=== PATIENT | female | born 1940 | race Caucasian/White ===

== ENCOUNTER 2018-08-01 09:44 | Emergency (ER) | payer MEDICARE, BC ==
--- NOTE | 2018-08-01 10:36 | EDM.PDOC ---
ED HPI GENERAL MEDICAL PROBLEM - General Chief Complaint: Lower Extremity Injury/Pain Stated Complaint: IN BY AMBULANCE FALL Time Seen by Provider: 08/01/18 10:00 Source of Information: Reports: Patient, EMS History Limitations: Reports: No Limitations - History of Present Illness INITIAL COMMENTS - FREE TEXT/NARRATIVE: ED with c/o right hip pain after 2nd fall this am. States tripped on rug earlier in am while ambulance coming for neighbor, stubbed toe and cut to right hand, assisted up by family after first fall then able to ambulate, 2nd fall again stating tripped on rug going again to window to see what was going on. Pain right hip after fall and unable to get up. Did not hit head. No back or neck pain. Hx parkinsons disease. Right Hip Pain Score (Numeric/FACES): 5 - Related Data Allergies Allergy/AdvReac Type Severity Reaction Status Date / Time alendronate sodium Allergy Cannot Verified 08/01/18 11:12 [From Fosamax] Remember cerivastatin [From Baycol] Allergy Cannot Verified 08/01/18 11:12 Remember Ytpiutv-Jwe-Xra Reductase Allergy Cannot Verified 08/01/18 11:12 Inhibitor Remember Past Medical History Cardiovascular History: Reports: Afib, Hypertension Neurological History: Reports: Parkinson's - Past Surgical History Musculoskeletal Surgical History: Reports: Knee Replacement Review of Systems - Review of Systems Review Of Systems: ROS reveals no pertinent complaints other than HPI. ED EXAM, GENERAL - Physical Exam Exam: See Below Exam Limited By: No Limitations General Appearance: Alert, Moderate Distress (with movement right hip) Eye Exam: Bilateral Eye: Normal Inspection Ears: Normal External Exam Nose: Normal Inspection Throat/Mouth: Normal Inspection Head: Atraumatic, Normocephalic Neck: Normal Inspection Respiratory/Chest: No Respiratory Distress, Lungs Clear, Normal Breath Sounds Cardiovascular: Normal Peripheral Pulses, Regular Rate, Rhythm GI/Abdominal: Normal Bowel Sounds Back Exam: Normal Inspection Extremities: No Pedal Edema, Leg Pain, Limited Range of Motion, Other (pedal pulses present bilaterally equal ) Neurological: Alert, Oriented, Normal Cognition, Memory Loss Remote Events ( admits is forgetful at times. ) Psychiatric: Normal Affect Skin Exam: Warm, Dry, Intact, Normal Color Course - Vital Signs Last Recorded V/S: Last Vital Signs Temp 97.5 F 08/01/18 11:01 Pulse 93 08/01/18 11:01 Resp 15 08/01/18 11:01 BP 173/97 H 08/01/18 11:01 Pulse Ox 95 08/01/18 11:01 - Orders/Labs/Meds Orders: Active Orders 24 hr Category Date Time Status UA W/MICROSCOPIC [URIN] Stat Lab 08/01/18 11:04 Ordered Labs: Laboratory Tests 08/01/18 08/01/18 08/01/18 Range/Units 10:08 10:08 11:04 WBC 9.5 (5.0-10.0) 10^3/uL RBC 4.66 (4.2-5.4) 10^6/uL Hgb 12.8 (12.0-16.0) g/dL Hct 41.6 (37.0-47.0) % MCV 89.3 (80-100) fL MCH 27.5 (27.0-34.0) pg MCHC 30.8 L (33.0-35.0) g/dL Plt Count 176 (150-450) 10^3/uL Neut % (Auto) 84.8 H (42.2-75.2) % Lymph % (Auto) 7.9 L (20.5-50.1) % [place] % (Auto) 6.7 (2-8) % Eos % (Auto) 0.5 L (1.0-3.0) % Baso % (Auto) 0.1 (0.0-1.0) % Sodium 143 (135-145) mmol/L Potassium 3.9 (3.6-5.0) mmol/L Chloride 107 (101-111) mmol/L Carbon Dioxide 25.0 (21.0-31.0) mmol/L Anion Gap 14.9 BUN 26 H (7-18) mg/dL Creatinine 1.3 (0.6-1.3) mg/dL Est Cr Clr Drug Dosing TNP Estimated GFR (MDRD) 40 BUN/Creatinine Ratio 20.00 Glucose 157 H (74-105) mg/dL Calcium 8.9 (8.4-10.2) mg/dl Total Bilirubin 1.0 (0.2-1.0) mg/dL AST 25 (10-42) IU/L ALT < 5 L (10-60) IU/L Alkaline Phosphatase 153 H (42-121) IU/L Total Protein 6.9 (6.7-8.2) g/dl Albumin 3.6 (3.2-5.5) g/dl Globulin 3.3 Albumin/Globulin Ratio 1.09 Urine Color Yellow (YELLOW) Urine Appearance Cloudy (CLEAR) Urine pH 5.0 (5.0-9.0) Ur Specific [place] 1.025 (1.005-1.030) Urine Protein >=300 H (NEGATIVE) Urine Glucose (UA) Negative (NEGATIVE) Urine Ketones Negative (NEGATIVE) Urine Occult Blood Small H (NEGATIVE) Urine Nitrite Positive H (NEGATIVE) Urine Bilirubin Negative (NEGATIVE) Urine Urobilinogen 0.2 (0.2-1.0) mg/dL Ur Leukocyte Esterase Trace H (NEGATIVE) Urine RBC 0-5 /HPF Urine WBC 10-20 H (0-5/HPF) /HPF Ur Epithelial Cells Not seen /HPF Urine Bacteria Many H (0-FEW/HPF) /HPF Urine Mucus Not seen /LPF Meds: Medications Discontinued Medications Generic Name Dose Route Start Last Admin Trade Name Hirenq PRN Reason Stop Dose Admin Hydromorphone HCl 1 mg 08/01/18 11:01 08/01/18 11:09 Dilaudid IVPUSH 08/01/18 11:02 1 mg ONETIME ONE Administration - Radiology Interpretation Free Text/Narrative:: CT pelvis : right femoral neck fracture - Re-Assessments/Exams Free Text/Narrative Re-Assessment/Exam: 08/01/18 11:26 Family present. Aware hip fx diagnosis. Patient reporting only took BP medication, synthroid, and Levo dopa. DID not take pradaxa this am. Tx [facility] via [facility]. Dr. Gamino accepting of patient. 08/01/18 11:27 Departure - Departure Time of Disposition: 11:34 Disposition: DC/Tfer to Acute Hospital 02 Condition: Good Clinical Impression: Fracture of neck of femur, hip, Parkinsons disease, Chronic anticoagulation, History of bilateral knee replacement CAD (coronary artery disease) Qualifiers: Coronary Disease-Associated Artery/Lesion type: unspecified vessel or lesion type Habematolel vs. transplanted heart: [place] heart Associated angina: without angina Qualified Code(s): I25.10 - Atherosclerotic heart disease of [place] coronary artery without angina pectoris Hypothyroidism Qualifiers: Hypothyroidism type: unspecified Qualified Code(s): E03.9 - Hypothyroidism, unspecified Osteoporosis Qualifiers: Osteoporosis type: unspecified Presence of current pathological fracture: unspecified Qualified Code(s): M81.0 - Age-related osteoporosis without current pathological fracture Peripheral neuropathy Qualifiers: Peripheral neuropathy type: polyneuropathy, unspecified Qualified Code(s): G62.9 - Polyneuropathy, unspecified - Discharge Information *PRESCRIPTION DRUG MONITORING PROGRAM REVIEWED*: Not Applicable Referrals: Misbah Barreto MD [Primary Care Provider] - Forms: ED Department Discharge - My Orders Last 24 Hours: My Active Orders 08/01/18 11:04 UA W/MICROSCOPIC [URIN] Stat - Assessment/Plan Last 24 Hours: My Active Orders 08/01/18 11:04 UA W/MICROSCOPIC [URIN] Stat
[2018-08-01 10:43] LABS: ANION GAP 14.9; CHLORIDE,CL 107 mmol/L (101-111); SODIUM,NA 143 mmol/L (135-145)
--- NOTE | 2018-08-01 10:52 | CT ---
Clinical history: 78-year-old female with Parkinson's disease and now hip pain (tripped on rug). Interpretation: Volume acquisition of data emergency unenhanced CT scan of the pelvis and both hips o btained while the patient was lying supine on the Siemens multi slice CT scanner [place], [place]. All data archived in the PACS system for storage, reformatting axial/sag ittal/coronal planes and study. Interpretation: Abnormal. 1. *Acute right femoral neck fracture with proximal retraction of the shaft (no dislocation of the fe moral head). 2. Homogeneous age and gender appropriate bone mineral density. 3. Symmetric spacing normal-appearing SI and hip joints. 4. No sign of pelvic or contralateral left hip fracture. 5. Mild arthritic changes lower lumbar spine.
[2018-08-01] MEDS ORDERED: HYDROmorphone 1 MG/ML Syringe IVPUSH ONE (11:01)
== END 2018-08-01 11:45 ==
LOC: DL.ED 09:44
DX: S72.001A Fracture of unspecified part of neck of right femur, initial encounter for closed fracture (principal); I10 Essential (primary) hypertension; I48.91 Unspecified atrial fibrillation; G20 Parkinson's disease; I25.10 Atherosclerotic heart disease of native coronary artery without angina pectoris; M81.0 Age-related osteoporosis without current pathological fracture; G62.9 Polyneuropathy, unspecified; W18.09XA Striking against other object with subsequent fall, initial encounter; Z88.8 Allergy status to other drugs, medicaments and biological substances; Z96.653 Presence of artificial knee joint, bilateral
CPT/HCPCS: 36415; 51702; 72192; 80053; 81001; 85025; 96374; 99284; 99285; J1170

== ENCOUNTER 2018-08-07 11:27 | Inpatient (IN) | payer MEDICARE, BC ==
--- NOTE | 2018-08-07 15:51 | PCM.HP ---
H&P History of Present Illness - General Date of Service: 08/07/18 Admit Problem/Dx: Admission Diagnosis/Problem Admission Diagnosis/Problem Rehabilitation therapy Source of Information: Patient, Old Records History Limitations: Reports: No Limitations - History of Present Illness Initial Comments - Free Text/Narative: 78 yo F with PMH of Parkinson's disease, atrial fibrillation on Pradaxa, CKD with solitary kidney, who sustained a mechanical fall a week ago and had a right hip fracture is s/p right hip arthroplasty. She was admitted to swing bed today after hospital stay for rehabilitation During hospitalization, she had anemia, likely 2/2 acute blood loss from hip # and surgery and hemoglobin improved prior to discharge Pradaxa was held during episode of acute anemia. I discussed with the orthopedic surgeon this afternoon and from the surgical standpoint, anticoagulation can be restarted. She also had a troponin leak, was seen by cardiology and no acute intervention was required. I saw and examined the patient at the bedside. She complains of pain in the right hip due to the vehicular ride to the swingbed facility. Pain is mild to moderate in the right hip region. Similar to previous pain associated with PT of the hip joint. Usually responds to tramadol. She has no chest pain, no SOB, no abdominal pain, no urinary symptoms RIGHT HIP INCISION Pain Score (Numeric/FACES): 3 - Related Data Allergies/Adverse Reactions: Allergies Allergy/AdvReac Type Severity Reaction Status Date / Time alendronate sodium Allergy Other Verified 08/07/18 14:36 [From Fosamax] cerivastatin [From Baycol] Allergy Other Verified 08/07/18 14:36 Ekyivsx-Hyh-Ibe Reductase Allergy Muscle Verified 08/07/18 14:36 Inhibitor Aches oxycodone AdvReac Nausea and Verified 08/07/18 14:35 Vomiting Home Medications: Home Meds Acetaminophen/Diphenhydramine [Tylenol Pm Ex-Strength Caplet] 1 tab PO DAILY PRN 08/07/18 [History] Calcitriol 0.25 cap PO DAILY 08/07/18 [History] Carbidopa/Levodopa [Carbidopa-Levo 25-100 MG ODT] 1 tab PO TID 08/07/18 [History ] Cholecalciferol (Vitamin D3) [Vitamin D3] 1,000 units PO DAILY 08/07/18 [History ] Dabigatran [Pradaxa] 150 mg PO DAILY 08/07/18 [History] Enoxaparin Sodium [Lovenox] 40 mg SQ DAILY 08/07/18 [History] Levothyroxine 175 mcg PO ACBREAKFAST 08/07/18 [History] Losartan [Cozaar] 50 mg PO BID 08/07/18 [History] Metoprolol Succinate [Toprol XL 100mg] 100 - 150 mg PO ASDIRECTED 08/07/18 [ History] Sodium Bicarbonate 325 mg PO BID 08/07/18 [History] Triamterene/Hydrochlorothiazid [Triamterene-HCTZ 37.5-25 MG] 1 tab PO DAILY 11/12 [History] Vit C/E/Zn/Coppr/Lutein/Zeaxan [Preservision Areds 2 Softgel] 1 cap PO BID 08/07 [History] Past Medical History HEENT History: Reports: Impaired Vision Other HEENT History: CORRECTIVE LENS Cardiovascular History: Reports: Afib, Hypertension [employer] WORK[employer] History: Reports: , Spontaneous Musculoskeletal History: Reports: Fracture, Gout, Osteoarthritis Neurological History: Reports: Neuropathy, Peripheral, Parkinson's Endocrine/Metabolic History: Reports: Hypothyroidism, Obesity/BMI 30+ Hematologic History: Reports: B12 Deficiency, Blood Transfusion(s) Immunologic History: Reports: None Oncologic (Cancer) History: Reports: None Dermatologic History: Reports: None - Infectious Disease History Infectious Disease History: Reports: Chicken Pox, Measles, Mumps, Shingles - Past Surgical History HEENT Surgical History: Reports: Oral Surgery, Other (See Below) Other HEENT Surgeries/Procedures: UPPER PARTIAL Cardiovascular Surgical History: Reports: Coronary Artery Stent GI Surgical History: Reports: Cholecystectomy, Colonoscopy Female Surgical History: Reports: Breast Biopsy, D&C, Hysterectomy Endocrine Surgical History: Reports: None Neurological Surgical History: Reports: None Musculoskeletal Surgical History: Reports: Hip Replacement, Knee Replacement Dermatological Surgical History: Reports: None Social & Family History - Family History Family Medical History: Noncontributory - Tobacco Use Smoking Status *Q: Never Smoker Second Hand Smoke Exposure: Yes - Caffeine Use Caffeine Use: Reports: Coffee Other Caffeine Use: AVERAGE OF 2-3 CUPS DAILY - Recreational Drug Use Recreational Drug Use: No H&P Review of Systems - Review of Systems: Review Of Systems: ROS reveals no pertinent complaints other than HPI. General: Reports: No Symptoms HEENT: Reports: No Symptoms Pulmonary: Reports: No Symptoms Cardiovascular: Reports: No Symptoms Gastrointestinal: Reports: No Symptoms Genitourinary: Reports: No Symptoms Musculoskeletal: Reports: Other (as described in HPI) Exam - Exam Exam: See Below - Vital Signs Vital Signs: Last Vital Signs Temp 36.7 C 08/07/18 14:17 Pulse 93 08/07/18 14:17 Resp 16 08/07/18 14:17 BP 148/85 H 08/07/18 14:17 Pulse Ox 97 08/07/18 14:17 Weight: 103.328 kg - Exam General: Alert, Oriented HEENT: Conjunctiva Clear Neck: Supple, Trachea Midline Lungs: Clear to Auscultation, Normal Respiratory Effort Cardiovascular: Regular Rate, Regular Rhythm GI/Abdominal Exam: Normal Bowel Sounds Problem List Initiated/Reviewed/Updated: Yes Orders Last 24hrs: Active Orders 24 hr Category Date Time Status Patient Status [ADT] Routine ADT 08/07/18 15:27 Ordered Ambulate [RC] ASDIRECTED Care 08/07/18 15:27 Ordered Bedrest Bathroom Privileges [RC] ASDIRECTED Care 08/07/18 15:27 Ordered Bedrest Bedside Commode [RC] ASDIRECTED Care 08/07/18 15:27 Ordered May Shower [RC] ASDIRECTED Care 08/07/18 15:27 Ordered Oxygen Therapy [RC] PRN Care 08/07/18 15:27 Ordered Up With Assistance [RC] ASDIRECTED Care 08/07/18 15:27 Ordered Up ad Zoë [RC] ASDIRECTED Care 08/07/18 15:27 Ordered Up to Chair [RC] ASDIRECTED Care 08/07/18 15:27 Ordered Vital Signs [RC] PER UNIT ROUTINE Care 08/07/18 15:27 Ordered OT Evaluation and Treatment [CONS] Routine Cons 08/07/18 15:27 Ordered PT Evaluation and Treatment [CONS] Routine Cons 08/07/18 15:27 Ordered Acetaminophen/Diphenhydramine [Tylenol Pm Ex-Strength Med 08/07/18 15:39 Ordered Caplet] 1 tab PO DAILY PRN Calcitriol [Rocaltrol] Med 08/08/18 09:00 Ordered 0.25 cap PO DAILY Carbidopa/Levodopa [Carbidopa-Levo 25-100 MG ODT] Med 08/07/18 21:00 Ordered 1 tab PO TID Cholecalciferol (Vitamin D3) [Vitamin D3] Med 08/08/18 09:00 Ordered 1,000 units PO DAILY Dabigatran Med 08/08/18 09:00 Ordered 150 mg PO DAILY HCTZ/Triamterene [Maxzide 25-37.5 MG] Med 08/08/18 09:00 Ordered 1 tab PO DAILY Levothyroxine [Levothyroxine] Med 08/08/18 06:00 Ordered 175 mcg PO ACBREAKFAST Losartan [Cozaar] Med 08/07/18 21:00 Ordered 50 mg PO BID Metoprolol Succinate [Toprol XL 100mg] Med 08/07/18 15:45 Ordered 100 mg PO ASDIRECTED Sodium Bicarbonate Med 08/07/18 21:00 Ordered 325 mg PO BID Vit C/E/Zn/Coppr/Lutein/Zeaxan [Preservision Areds 2 Med 08/07/18 21:00 Ordered Softgel] 1 cap PO BID Resuscitation Status Routine Resus Stat 08/07/18 15:27 Ordered Assessment/Plan Comment:: Hip Fracture s/p R Hip Arthroplasty -PT.OT for rehab -pain mgt with tylenol and tramadol Parkinson's disease -continue carbidopa/levodopa Atrial fibrillation Rate control: continue metoprolol Anticoaglation: restart pradaxa Check CBC Hypothyroidism continue levothyroxine Hypertension continue home BP meds (HCTZ, losartan) Code Status: OSVALDO
[2018-08-07] MEDS: Lutein/Minerals/Vit A,C & E Tab PO SCH (21:22)
[2018-08-07] MEDS: Dabigatran 75 MG Cap PO SCH (21:22)
[2018-08-07] MEDS: Sodium Bicarbonate 650 MG Tab PO SCH (21:23)
[2018-08-07] MEDS: Carbidopa/Levodopa 25-100 MG Tab PO SCH (21:24)
[2018-08-07] MEDS: Losartan 50 MG Tab PO SCH (21:24)
[2018-08-07] MEDS: Metoprolol Succinate 50 MG Tab.ER PO SCH (21:27)
[2018-08-07] MEDS: traMADol 50 MG Tab PO PRN (23:36)
[2018-08-07] MEDS: diphenhydrAMINE 25 MG Tab PO PRN (23:38)
[2018-08-08] MEDS: Levothyroxine 75 MCG Tab PO SCH (05:44)
[2018-08-08] MEDS: Levothyroxine 100 MCG Tab PO SCH (05:44)
[2018-08-08] MEDS ORDERED: Non-Formulary Medication 1 Each (Dabigatran 150 MG) PO SCH (09:00)
[2018-08-08] MEDS: Losartan 50 MG Tab PO SCH ×2 (10:35→20:41)
[2018-08-08] MEDS: Lutein/Minerals/Vit A,C & E Tab PO SCH ×2 (10:35→20:43)
[2018-08-08] MEDS: Hydrochlorothiazide/Triamterene 25-37.5 Tab PO SCH (10:36)
[2018-08-08] MEDS: Dabigatran 75 MG Cap PO SCH ×2 (10:36→20:41)
[2018-08-08] MEDS: Calcitriol 0.25 MCG Cap PO SCH (10:37)
[2018-08-08] MEDS: Carbidopa/Levodopa 25-100 MG Tab PO SCH ×3 (10:37→20:44)
[2018-08-08] MEDS: Sodium Bicarbonate 650 MG Tab PO SCH ×2 (10:37→20:42)
[2018-08-08] MEDS: Cholecalciferol (Vitamin D3) 400 Unit Tab PO SCH (10:38)
[2018-08-08] MEDS: Metoprolol Succinate 50 MG Tab.ER PO SCH ×2 (10:39→20:45)
[2018-08-08] MEDS: diphenhydrAMINE 25 MG Tab PO PRN (22:36)
[2018-08-08] MEDS: Acetaminophen 500 MG Tab PO PRN (22:36)
[2018-08-09] MEDS: traMADol 50 MG Tab PO PRN ×2 (02:44→21:51)
[2018-08-09] MEDS: Levothyroxine 100 MCG Tab PO SCH (05:46)
[2018-08-09] MEDS: Levothyroxine 75 MCG Tab PO SCH (05:46)
[2018-08-09] MEDS: Cholecalciferol (Vitamin D3) 400 Unit Tab PO SCH (09:18)
[2018-08-09] MEDS: Metoprolol Succinate 50 MG Tab.ER PO SCH ×2 (09:19→21:56)
[2018-08-09] MEDS: Dabigatran 75 MG Cap PO SCH ×2 (09:20→21:48)
[2018-08-09] MEDS: Carbidopa/Levodopa 25-100 MG Tab PO SCH ×3 (09:21→21:49)
[2018-08-09] MEDS: Calcitriol 0.25 MCG Cap PO SCH (09:21)
[2018-08-09] MEDS: Sodium Bicarbonate 650 MG Tab PO SCH ×2 (09:21→21:50)
[2018-08-09] MEDS: Lutein/Minerals/Vit A,C & E Tab PO SCH ×2 (09:29→21:48)
[2018-08-09] MEDS: Losartan 50 MG Tab PO SCH ×2 (09:29→21:47)
[2018-08-09] MEDS: Hydrochlorothiazide/Triamterene 25-37.5 Tab PO SCH (09:29)
[2018-08-10] MEDS: Levothyroxine 75 MCG Tab PO SCH (05:42)
[2018-08-10] MEDS: Levothyroxine 100 MCG Tab PO SCH (05:42)
[2018-08-10] MEDS: Hydrochlorothiazide/Triamterene 25-37.5 Tab PO SCH (09:00)
[2018-08-10] MEDS: Lutein/Minerals/Vit A,C & E Tab PO SCH ×2 (09:00→21:29)
[2018-08-10] MEDS: Sodium Bicarbonate 650 MG Tab PO SCH ×2 (09:00→21:29)
[2018-08-10] MEDS: Calcitriol 0.25 MCG Cap PO SCH (09:00)
[2018-08-10] MEDS: Losartan 50 MG Tab PO SCH ×2 (09:01→21:28)
[2018-08-10] MEDS: Carbidopa/Levodopa 25-100 MG Tab PO SCH ×3 (09:02→21:29)
[2018-08-10] MEDS: Dabigatran 75 MG Cap PO SCH ×2 (09:02→21:28)
[2018-08-10] MEDS: Metoprolol Succinate 50 MG Tab.ER PO SCH ×2 (09:04→21:28)
[2018-08-10] MEDS: Cholecalciferol (Vitamin D3) 400 Unit Tab PO SCH (09:05)
[2018-08-10] MEDS: Acetaminophen 325 MG Tab PO PRN (12:55)
[2018-08-10] MEDS ORDERED: Calcium Carbonate 500 MG Tab.Chew PO PRN (16:08)
[2018-08-10] MEDS ORDERED: predniSONE 5 MG Tab PO ONE (16:16)
[2018-08-10 17:35] LABS: ANION GAP 13.4
[2018-08-10] MEDS: traMADol 50 MG Tab PO PRN (21:57)
[2018-08-11] MEDS: Levothyroxine 75 MCG Tab PO SCH (06:07)
[2018-08-11] MEDS: Levothyroxine 100 MCG Tab PO SCH (06:07)
[2018-08-11] MEDS: Hydrochlorothiazide/Triamterene 25-37.5 Tab PO SCH (09:24)
[2018-08-11] MEDS: Cholecalciferol (Vitamin D3) 400 Unit Tab PO SCH (09:24)
[2018-08-11] MEDS: Calcitriol 0.25 MCG Cap PO SCH (09:25)
[2018-08-11] MEDS: Losartan 50 MG Tab PO SCH ×2 (09:25→21:10)
[2018-08-11] MEDS: Metoprolol Succinate 50 MG Tab.ER PO SCH ×2 (09:26→21:09)
[2018-08-11] MEDS: Lutein/Minerals/Vit A,C & E Tab PO SCH ×2 (09:29→21:07)
[2018-08-11] MEDS: Sodium Bicarbonate 650 MG Tab PO SCH ×2 (09:29→21:10)
[2018-08-11] MEDS: Carbidopa/Levodopa 25-100 MG Tab PO SCH ×3 (09:29→21:09)
[2018-08-11] MEDS: Dabigatran 75 MG Cap PO SCH ×2 (09:30→21:50)
--- NOTE | 2018-08-11 13:22 | PCM.PN ---
- General Info Date of Service: 08/11/18 Admission Dx/Problem (Free Text): Admission Diagnosis/Problem Admission Diagnosis/Problem Rehabilitation therapy Subjective Update: 78 yo F with PMH of Parkinson's disease, atrial fibrillation on Pradaxa, CKD with solitary kidney, who sustained a mechanical fall and had a right hip fracture is s/p right hip arthroplasty. She was admitted to swing bed after hospital stay for rehabilitation During hospitalization, she had anemia, likely 2/2 acute blood loss from hip # and surgery and hemoglobin improved prior to discharge Pradaxa was held during episode of acute anemia. This ahs been resumed. She also had a troponin leak, was seen by cardiology and no acute intervention was required. Patient was seen and examined today. She developed acute pain and redness in the left big toe. She has h/o of gouty arthritis. Uric acid done was elevated at 7.7. patient was started on systemic prednisone given h/o CKD. Today she report improvement in the left big toe. She denies fever, chills. Functional Status: Reports: Pain Controlled - Review of Systems General: Reports: No Symptoms HEENT: Reports: No Symptoms Pulmonary: Reports: No Symptoms Cardiovascular: Reports: No Symptoms Gastrointestinal: Reports: No Symptoms Genitourinary: Reports: No Symptoms Musculoskeletal: Reports: No Symptoms Skin: Reports: No Symptoms Neurological: Reports: No Symptoms Psychiatric: Reports: No Symptoms - Patient Data Vitals - Most Recent: Last Vital Signs Temp 97.2 F 08/11/18 08:07 Pulse 82 08/11/18 09:26 Resp 20 08/11/18 08:07 BP 126/69 08/11/18 09:26 Pulse Ox 98 08/11/18 08:07 Weight - Most Recent: 227 lb 12.8 oz I&O - Last 24 Hours: Intake & Output 08/10/18 08/11/18 08/11/18 22:59 06:59 14:59 Intake Total 800 300 225 Output Total 400 Balance 400 300 225 Lab Results Last 24 Hours: Laboratory Results - last 24 hr 08/10/18 Range/Units 16:55 Sodium 141 (135-145) mmol/L Potassium 3.4 L (3.6-5.0) mmol/L Chloride 103 (101-111) mmol/L Carbon Dioxide 28.0 (21.0-31.0) mmol/L Anion Gap 13.4 BUN 29 H (7-18) mg/dL Creatinine 1.3 (0.6-1.3) mg/dL Est Cr Clr Drug Dosing 37.87 mL/min Estimated GFR (MDRD) 40 Glucose 112 H (74-105) mg/dL Uric Acid 7.7 H (2.6-7.2) mg/dL Calcium 8.2 L (8.4-10.2) mg/dl Med Orders - Current: Current Medications Acetaminophen (Tylenol) 650 mg PO Q4H PRN PRN Reason: Pain (mild 1-3) Last Admin: 08/10/18 12:55 Dose: 650 mg Acetaminophen (Tylenol Extra Strength) 500 mg PO BEDTIME PRN PRN Reason: INSOMNIA Last Admin: 08/08/18 22:36 Dose: 500 mg Calcitriol (Rocaltrol) 0.25 mcg PO DAILY [facility] Last Admin: 08/11/18 09:25 Dose: 0.25 mcg Calcium Carbonate/Glycine (Tums) 500 mg PO BIDMEALS PRN PRN Reason: Abdominal Pain Carbidopa/Levodopa (Sinemet 25-100 Mg) 1 tab PO TID [facility] Last Admin: 08/11/18 09:29 Dose: 1 tab Cholecalciferol (Vitamin D3) 1,000 units PO DAILY [facility] Last Admin: 08/11/18 09:24 Dose: 1,000 units Dabigatran (Pradaxa) 150 mg PO BID [facility] Last Admin: 08/11/18 09:30 Dose: 150 mg Diphenhydramine HCl (Benadryl) 25 mg PO BEDTIME PRN PRN Reason: Insomnia Last Admin: 08/08/18 22:36 Dose: 25 mg Levothyroxine Sodium (Synthroid) 100 mcg PO ACBREAKFAST [facility] Last Admin: 08/11/18 06:07 Dose: 100 mcg Levothyroxine Sodium (Levothyroxine) 75 mcg PO ACBRK [facility] Last Admin: 08/11/18 06:07 Dose: 75 mcg Losartan Potassium (Cozaar) 50 mg PO BID [facility] Last Admin: 08/11/18 09:25 Dose: 50 mg Metoprolol Succinate (Toprol Xl) 150 mg PO DAILY [facility] Last Admin: 08/11/18 09:26 Dose: 150 mg Metoprolol Succinate (Toprol Xl) 100 mg PO BEDTIME [facility] Last Admin: 08/10/18 21:28 Dose: 100 mg Multivitamins/Minerals (I-Gucci) 1 each PO BID [facility] Last Admin: 08/11/18 09:29 Dose: 1 each Prednisone (Prednisone) 5 mg PO DAILY [facility] Stop: 08/16/18 18:01 Sodium Bicarbonate (Sodium Bicarbonate) 325 mg PO BID [facility] Last Admin: 08/11/18 09:29 Dose: 325 mg Tramadol HCl (Ultram) 50 mg PO Q6H PRN PRN Reason: Pain (moderate 4-6) Last Admin: 08/10/18 21:57 Dose: 50 mg Triamterene/HCTZ (Maxzide 25-37.5 Mg) 1 each PO DAILY [facility] Last Admin: 08/11/18 09:24 Dose: 1 each Discontinued Medications Non-Formulary Medication (Dabigatran) 150 mg PO DAILY [facility] Prednisone (Prednisone) 5 mg PO ONETIME ONE Stop: 08/10/18 16:17 Last Admin: 08/10/18 16:32 Dose: 5 mg - Exam Quality Assessment: DVT Prophylaxis General: Alert, Oriented HEENT: Pupils Equal, Pupils Reactive, EOMI, Mucous Membr. Moist/[place] Neck: Supple Lungs: Clear to Auscultation, Normal Respiratory Effort Cardiovascular: Regular Rate, Regular Rhythm GI/Abdominal Exam: Normal Bowel Sounds, Soft, Non-Tender, No Organomegaly, No Distention, No Abnormal Bruit, No Mass, Pelvis Stable (Female) Exam: Normal External Exam, Normal Speculum Exam, Normal Bimanual Exam Back Exam: Normal Inspection, Full Range of Motion Extremities: Normal Inspection, Normal Range of Motion, Non-Tender, No Pedal Edema, Normal Capillary Refill, Other (Redness and redness to left big toe improving) Skin: Warm, Dry, Intact Wound/Incisions: Healing Well Neurological: No New Focal Deficit Psy/Mental Status: Alert, Normal Affect, Normal Mood - Problem List & Annotations (1) Gouty arthritis of great toe SNOMED Code(s): 432992689 Code(s): M10.9 - GOUT, UNSPECIFIED Status: Acute Current Visit: Yes - Problem List Review Problem List Initiated/Reviewed/Updated: Yes - My Orders Last 24 Hours: My Active Orders 08/10/18 16:08 Calcium Carbonate [Tums] 500 mg PO BIDMEALS PRN 08/11/18 18:00 predniSONE 5 mg PO DAILY 08/12/18 07:00 BASIC METABOLIC PANEL,BMP [CHEM] Routine CBC W/O DIFF,HEMOGRAM [HEME] Routine - Plan Plan:: Left big toe gouty arthritis improving on PO prednisone. will continue Hip Fracture s/p R Hip Arthroplasty -PT.OT for rehab -pain mgt with tylenol and tramadol Parkinson's disease -continue carbidopa/levodopa Atrial fibrillation Rate control: continue metoprolol Anticoaglation: restart pradaxa Repeat CBC in the AM Hypothyroidism continue levothyroxine Hypertension continue home BP meds (HCTZ, losartan) Code Status: FC
[2018-08-11] MEDS: predniSONE 5 MG Tab PO SCH (17:39)
[2018-08-11] MEDS: traMADol 50 MG Tab PO PRN (21:07)
[2018-08-11] MEDS: Acetaminophen 500 MG Tab PO PRN (21:54)
[2018-08-12] MEDS: Levothyroxine 75 MCG Tab PO SCH (05:50)
[2018-08-12] MEDS: Levothyroxine 100 MCG Tab PO SCH (05:50)
[2018-08-12 06:50] LABS: ANION GAP 13.6
[2018-08-12] MEDS: Calcitriol 0.25 MCG Cap PO SCH (08:45)
[2018-08-12] MEDS: Dabigatran 75 MG Cap PO SCH ×2 (08:45→20:52)
[2018-08-12] MEDS: Losartan 50 MG Tab PO SCH ×2 (08:45→20:56)
[2018-08-12] MEDS: Sodium Bicarbonate 650 MG Tab PO SCH ×2 (08:48→20:57)
[2018-08-12] MEDS: Metoprolol Succinate 50 MG Tab.ER PO SCH ×2 (08:49→20:57)
[2018-08-12] MEDS: Cholecalciferol (Vitamin D3) 400 Unit Tab PO SCH (08:50)
[2018-08-12] MEDS: Hydrochlorothiazide/Triamterene 25-37.5 Tab PO SCH (08:51)
[2018-08-12] MEDS: Lutein/Minerals/Vit A,C & E Tab PO SCH ×2 (08:51→20:55)
[2018-08-12] MEDS: predniSONE 5 MG Tab PO SCH (08:51)
[2018-08-12] MEDS: Carbidopa/Levodopa 25-100 MG Tab PO SCH ×3 (08:52→20:55)
[2018-08-12] MEDS: traMADol 50 MG Tab PO PRN (22:25)
[2018-08-13] MEDS: Acetaminophen 500 MG Tab PO PRN (01:46)
[2018-08-13] MEDS: Levothyroxine 75 MCG Tab PO SCH (05:47)
[2018-08-13] MEDS: Levothyroxine 100 MCG Tab PO SCH (05:47)
[2018-08-13] MEDS: Calcitriol 0.25 MCG Cap PO SCH (08:23)
[2018-08-13] MEDS: Hydrochlorothiazide/Triamterene 25-37.5 Tab PO SCH (08:24)
[2018-08-13] MEDS: Dabigatran 75 MG Cap PO SCH ×2 (08:24→20:37)
[2018-08-13] MEDS: Losartan 50 MG Tab PO SCH ×2 (08:25→20:38)
[2018-08-13] MEDS: Lutein/Minerals/Vit A,C & E Tab PO SCH ×2 (08:26→20:38)
[2018-08-13] MEDS: predniSONE 5 MG Tab PO SCH (08:26)
[2018-08-13] MEDS: Sodium Bicarbonate 650 MG Tab PO SCH ×2 (08:26→20:42)
[2018-08-13] MEDS: Metoprolol Succinate 50 MG Tab.ER PO SCH ×2 (08:27→20:39)
[2018-08-13] MEDS: Cholecalciferol (Vitamin D3) 400 Unit Tab PO SCH (08:28)
[2018-08-13] MEDS: Carbidopa/Levodopa 25-100 MG Tab PO SCH ×3 (08:29→20:37)
[2018-08-13] MEDS: diphenhydrAMINE 25 MG Tab PO PRN (21:48)
[2018-08-14] MEDS: Levothyroxine 100 MCG Tab PO SCH (05:52)
[2018-08-14] MEDS: Levothyroxine 75 MCG Tab PO SCH (05:52)
[2018-08-14] MEDS: Sodium Bicarbonate 650 MG Tab PO SCH ×2 (08:49→21:04)
[2018-08-14] MEDS: Hydrochlorothiazide/Triamterene 25-37.5 Tab PO SCH (08:49)
[2018-08-14] MEDS: predniSONE 5 MG Tab PO SCH (08:50)
[2018-08-14] MEDS: Lutein/Minerals/Vit A,C & E Tab PO SCH ×2 (08:50→20:59)
[2018-08-14] MEDS: Carbidopa/Levodopa 25-100 MG Tab PO SCH ×3 (08:50→21:03)
[2018-08-14] MEDS: Losartan 50 MG Tab PO SCH ×2 (08:50→21:03)
[2018-08-14] MEDS: Cholecalciferol (Vitamin D3) 400 Unit Tab PO SCH (08:50)
[2018-08-14] MEDS: Metoprolol Succinate 50 MG Tab.ER PO SCH ×2 (08:51→21:03)
[2018-08-14] MEDS: Dabigatran 75 MG Cap PO SCH ×2 (08:51→21:04)
[2018-08-14] MEDS: Calcitriol 0.25 MCG Cap PO SCH (08:51)
[2018-08-14] MEDS: diphenhydrAMINE 25 MG Tab PO PRN (22:03)
[2018-08-15] MEDS: Levothyroxine 100 MCG Tab PO SCH (05:22)
[2018-08-15] MEDS: Levothyroxine 75 MCG Tab PO SCH (05:22)
[2018-08-15] MEDS: Cholecalciferol (Vitamin D3) 400 Unit Tab PO SCH (09:13)
[2018-08-15] MEDS: Dabigatran 75 MG Cap PO SCH ×2 (09:15→20:43)
[2018-08-15] MEDS: Lutein/Minerals/Vit A,C & E Tab PO SCH ×2 (09:17→20:44)
[2018-08-15] MEDS: Losartan 50 MG Tab PO SCH ×2 (09:17→20:49)
[2018-08-15] MEDS: Sodium Bicarbonate 650 MG Tab PO SCH ×2 (09:18→20:41)
[2018-08-15] MEDS: Calcitriol 0.25 MCG Cap PO SCH (09:18)
[2018-08-15] MEDS: Hydrochlorothiazide/Triamterene 25-37.5 Tab PO SCH (09:19)
[2018-08-15] MEDS: Carbidopa/Levodopa 25-100 MG Tab PO SCH ×3 (09:19→20:44)
[2018-08-15] MEDS: Metoprolol Succinate 50 MG Tab.ER PO SCH ×2 (09:20→20:44)
[2018-08-15] MEDS: predniSONE 5 MG Tab PO SCH (09:21)
--- NOTE | 2018-08-15 10:51 | PCM.PN ---
- General Info Date of Service: 08/15/18 Admission Dx/Problem (Free Text): Admission Diagnosis/Problem Admission Diagnosis/Problem Rehabilitation therapy Subjective Update: 78 yo F with PMH of Parkinson's disease, atrial fibrillation on Pradaxa, CKD with solitary kidney, who sustained a mechanical fall and had a right hip fracture is s/p right hip arthroplasty. She was admitted to swing bed after hospital stay for rehabilitation, pt/ot. During hospitalization, she had anemia, likely 2/2 acute blood loss from hip fx and surgery hemoglobin improved prior to discharge Pradaxa was held during episode of acute anemia. This has been resumed. She also had a troponin leak, was seen by cardiology and no acute intervention was required. No more c/o in the left big toe. She denies fever, chills. no sob, no cp working with pt/ot well Functional Status: Reports: Pain Controlled, Tolerating Diet - Review of Systems Pulmonary: Denies: Shortness of Breath Cardiovascular: Denies: Chest Pain Genitourinary: Denies: Dysuria Psychiatric: Denies: Confusion - Patient Data Vitals - Most Recent: Last Vital Signs Temp 36.7 C 08/15/18 07:29 Pulse 83 08/15/18 09:20 Resp 18 08/15/18 07:29 BP 123/55 L 08/15/18 09:20 Pulse Ox 98 08/15/18 07:29 Weight - Most Recent: 97.069 kg I&O - Last 24 Hours: Intake & Output 08/14/18 08/15/18 08/15/18 22:59 06:59 14:59 Intake Total 160 100 Balance 160 100 Med Orders - Current: Current Medications Acetaminophen (Tylenol) 650 mg PO Q4H PRN PRN Reason: Pain (mild 1-3) Last Admin: 08/10/18 12:55 Dose: 650 mg Acetaminophen (Tylenol Extra Strength) 500 mg PO BEDTIME PRN PRN Reason: INSOMNIA Last Admin: 08/13/18 01:46 Dose: 500 mg Calcitriol (Rocaltrol) 0.25 mcg PO DAILY [facility] Last Admin: 08/15/18 09:18 Dose: 0.25 mcg Calcium Carbonate/Glycine (Tums) 500 mg PO BIDMEALS PRN PRN Reason: Abdominal Pain Last Admin: 08/12/18 08:52 Dose: 500 mg Calcium Carbonate/Glycine (Tums) 500 mg PO WITHBREAKFAST [facility] Carbidopa/Levodopa (Sinemet 25-100 Mg) 1 tab PO TID [facility] Last Admin: 08/15/18 09:19 Dose: 1 tab Cholecalciferol (Vitamin D3) 1,000 units PO DAILY [facility] Last Admin: 08/15/18 09:13 Dose: 1,000 units Dabigatran (Pradaxa) 150 mg PO BID [facility] Last Admin: 08/15/18 09:15 Dose: 150 mg Diphenhydramine HCl (Benadryl) 25 mg PO BEDTIME PRN PRN Reason: Insomnia Last Admin: 08/14/18 22:03 Dose: 25 mg Levothyroxine Sodium (Synthroid) 100 mcg PO ACBREAKFAST [facility] Last Admin: 08/15/18 05:22 Dose: 100 mcg Levothyroxine Sodium (Levothyroxine) 75 mcg PO ACBRK [facility] Last Admin: 08/15/18 05:22 Dose: 75 mcg Losartan Potassium (Cozaar) 50 mg PO BID [facility] Last Admin: 08/15/18 09:17 Dose: 50 mg Metoprolol Succinate (Toprol Xl) 150 mg PO DAILY [facility] Last Admin: 08/15/18 09:20 Dose: 150 mg Metoprolol Succinate (Toprol Xl) 100 mg PO BEDTIME [facility] Last Admin: 08/14/18 21:03 Dose: 100 mg Multivitamins/Minerals (I-Gucci) 1 each PO BID [facility] Last Admin: 08/15/18 09:17 Dose: 1 each Prednisone (Prednisone) 5 mg PO DAILY [facility] Stop: 08/16/18 18:01 Last Admin: 08/15/18 09:21 Dose: 5 mg Sodium Bicarbonate (Sodium Bicarbonate) 325 mg PO BID [facility] Last Admin: 08/15/18 09:18 Dose: 325 mg Tramadol HCl (Ultram) 50 mg PO Q6H PRN PRN Reason: Pain (moderate 4-6) Last Admin: 08/12/18 22:25 Dose: 50 mg Triamterene/HCTZ (Maxzide 25-37.5 Mg) 1 each PO DAILY [facility] Last Admin: 08/15/18 09:19 Dose: 1 each Discontinued Medications Non-Formulary Medication (Dabigatran) 150 mg PO DAILY [facility] Prednisone (Prednisone) 5 mg PO ONETIME ONE Stop: 08/10/18 16:17 Last Admin: 08/10/18 16:32 Dose: 5 mg - Exam General: Alert Neck: Supple Lungs: Clear to Auscultation, Normal Respiratory Effort Cardiovascular: Regular Rate, Regular Rhythm GI/Abdominal Exam: Normal Bowel Sounds, Soft, Non-Tender, Other (obese) Extremities: No Pedal Edema Neurological: No New Focal Deficit Psy/Mental Status: Alert, Normal Affect, Normal Mood - Problem List & Annotations (1) Hip fracture SNOMED Code(s): 835902412 Code(s): S72.009A - FRACTURE OF UNSP PART OF NECK OF UNSP FEMUR, INIT Status: Acute Current Visit: Yes (2) Postoperative anemia due to acute blood loss SNOMED Code(s): 73154091029765778 Code(s): D62 - ACUTE POSTHEMORRHAGIC ANEMIA Status: Acute Current Visit: Yes (3) CAD (coronary artery disease) SNOMED Code(s): 24076075 Code(s): I25.10 - ATHSCL HEART DISEASE OF [place] CORONARY ARTERY W/O ANG PCTRS Status: Acute Current Visit: No Qualifiers: Coronary Disease-Associated Artery/Lesion type: unspecified vessel or lesion type [place] vs. transplanted heart: [place] heart Associated angina: without angina Qualified Code(s): I25.10 - Atherosclerotic heart disease of [place] coronary artery without angina pectoris - Problem List Review Problem List Initiated/Reviewed/Updated: Yes - My Orders Last 24 Hours: My Active Orders 08/16/18 08:00 Calcium Carbonate [Tums] 500 mg PO WITHBREAKFAST 08/19/18 05:15 BASIC METABOLIC PANEL,BMP [CHEM] AM CBC WITH AUTO DIFF [HEME] AM 08/19/18 10:44 IRON PNL (FE, TIBC, RANDALL, %SAT) [REF] Routine - Plan Plan:: Gout resolving stop Steroid soon Hip Fracture s/p R Hip Arthroplasty -PT.OT for rehab -pain mgt with tylenol and tramadol postoperative acute blood loss anemia check iron panel CKD III had appt with dr. Pierre today start tums recheck in 3 mo Parkinson's disease -continue carbidopa/levodopa Atrial fibrillation Rate control: continue metoprolol Anticoaglation: restarted pradaxa Hypothyroidism continue levothyroxine Hypertension continue HCTZ, losartan Code Status: full
[2018-08-15] MEDS: diphenhydrAMINE 25 MG Tab PO PRN (21:54)
[2018-08-16] MEDS: Levothyroxine 75 MCG Tab PO SCH (06:00)
[2018-08-16] MEDS: Levothyroxine 100 MCG Tab PO SCH (06:00)
[2018-08-16] MEDS: Calcium Carbonate 500 MG Tab.Chew PO SCH (08:22)
[2018-08-16] MEDS: Losartan 50 MG Tab PO SCH ×2 (08:23→21:42)
[2018-08-16] MEDS: Lutein/Minerals/Vit A,C & E Tab PO SCH ×2 (08:24→21:43)
[2018-08-16] MEDS: Dabigatran 75 MG Cap PO SCH ×2 (08:25→21:44)
[2018-08-16] MEDS: predniSONE 5 MG Tab PO SCH (08:26)
[2018-08-16] MEDS: Sodium Bicarbonate 650 MG Tab PO SCH ×2 (08:27→21:44)
[2018-08-16] MEDS: Carbidopa/Levodopa 25-100 MG Tab PO SCH ×3 (08:27→21:45)
[2018-08-16] MEDS: Metoprolol Succinate 50 MG Tab.ER PO SCH ×2 (08:27→21:52)
[2018-08-16] MEDS: Cholecalciferol (Vitamin D3) 400 Unit Tab PO SCH (08:29)
[2018-08-16] MEDS: Calcitriol 0.25 MCG Cap PO SCH (08:29)
[2018-08-16] MEDS: Hydrochlorothiazide/Triamterene 25-37.5 Tab PO SCH (08:30)
[2018-08-16] MEDS: diphenhydrAMINE 25 MG Tab PO PRN (21:53)
[2018-08-17] MEDS: Levothyroxine 75 MCG Tab PO SCH (05:30)
[2018-08-17] MEDS: Levothyroxine 100 MCG Tab PO SCH (05:30)
[2018-08-17] MEDS: Cholecalciferol (Vitamin D3) 400 Unit Tab PO SCH (08:49)
[2018-08-17] MEDS: Calcitriol 0.25 MCG Cap PO SCH (08:49)
[2018-08-17] MEDS: Calcium Carbonate 500 MG Tab.Chew PO SCH (08:49)
[2018-08-17] MEDS: Lutein/Minerals/Vit A,C & E Tab PO SCH ×2 (08:49→21:08)
[2018-08-17] MEDS: Carbidopa/Levodopa 25-100 MG Tab PO SCH ×3 (08:49→21:08)
[2018-08-17] MEDS: Sodium Bicarbonate 650 MG Tab PO SCH ×2 (08:53→21:08)
[2018-08-17] MEDS: Losartan 50 MG Tab PO SCH ×2 (08:54→21:05)
[2018-08-17] MEDS: Metoprolol Succinate 50 MG Tab.ER PO SCH ×2 (08:55→21:06)
[2018-08-17] MEDS: Dabigatran 75 MG Cap PO SCH ×2 (08:56→21:07)
[2018-08-17] MEDS ORDERED: Hydrochlorothiazide/Triamterene 25-37.5 Tab ONE (11:05)
[2018-08-17] MEDS: Hydrochlorothiazide/Triamterene 25-37.5 Tab PO SCH (11:26)
[2018-08-18] MEDS: Levothyroxine 75 MCG Tab PO SCH (06:05)
[2018-08-18] MEDS: Levothyroxine 100 MCG Tab PO SCH (06:05)
[2018-08-18] MEDS: Calcium Carbonate 500 MG Tab.Chew PO SCH (10:02)
[2018-08-18] MEDS: Dabigatran 75 MG Cap PO SCH ×2 (10:03→20:47)
[2018-08-18] MEDS: Calcitriol 0.25 MCG Cap PO SCH (10:04)
[2018-08-18] MEDS: Sodium Bicarbonate 650 MG Tab PO SCH ×2 (10:04→20:47)
[2018-08-18] MEDS: Cholecalciferol (Vitamin D3) 400 Unit Tab PO SCH (10:04)
[2018-08-18] MEDS: Lutein/Minerals/Vit A,C & E Tab PO SCH ×2 (10:05→20:49)
[2018-08-18] MEDS: Carbidopa/Levodopa 25-100 MG Tab PO SCH ×3 (10:05→20:50)
[2018-08-18] MEDS: Losartan 50 MG Tab PO SCH ×2 (10:25→20:49)
[2018-08-18] MEDS: Metoprolol Succinate 50 MG Tab.ER PO SCH ×2 (10:26→20:50)
[2018-08-18] MEDS: Hydrochlorothiazide/Triamterene 25-37.5 Tab PO SCH (10:26)
[2018-08-18] MEDS: diphenhydrAMINE 25 MG Tab PO PRN (20:52)
[2018-08-19] MEDS: Levothyroxine 75 MCG Tab PO SCH (05:57)
[2018-08-19] MEDS: Levothyroxine 100 MCG Tab PO SCH (05:57)
[2018-08-19 07:10] LABS: ANION GAP 11.8
[2018-08-19] MEDS: Calcium Carbonate 500 MG Tab.Chew PO SCH (08:46)
[2018-08-19] MEDS: Losartan 50 MG Tab PO SCH ×2 (08:46→22:03)
[2018-08-19] MEDS: Hydrochlorothiazide/Triamterene 25-37.5 Tab PO SCH (08:47)
[2018-08-19] MEDS: Carbidopa/Levodopa 25-100 MG Tab PO SCH ×3 (08:48→22:02)
[2018-08-19] MEDS: Dabigatran 75 MG Cap PO SCH ×2 (08:48→22:02)
[2018-08-19] MEDS: Cholecalciferol (Vitamin D3) 400 Unit Tab PO SCH (08:48)
[2018-08-19] MEDS: Calcitriol 0.25 MCG Cap PO SCH (08:48)
[2018-08-19] MEDS: Sodium Bicarbonate 650 MG Tab PO SCH ×2 (08:49→22:04)
[2018-08-19] MEDS: Metoprolol Succinate 50 MG Tab.ER PO SCH ×2 (08:51→22:03)
[2018-08-19] MEDS: Lutein/Minerals/Vit A,C & E Tab PO SCH ×2 (08:52→22:03)
[2018-08-19] MEDS: Acetaminophen 325 MG Tab PO PRN (22:12)
[2018-08-19] MEDS: diphenhydrAMINE 25 MG Tab PO PRN (22:13)
[2018-08-20] MEDS: Levothyroxine 75 MCG Tab PO SCH (06:27)
[2018-08-20] MEDS: Levothyroxine 100 MCG Tab PO SCH (06:27)
[2018-08-20] MEDS: Sodium Bicarbonate 650 MG Tab PO SCH ×2 (08:34→21:12)
[2018-08-20] MEDS: Carbidopa/Levodopa 25-100 MG Tab PO SCH ×3 (08:35→21:11)
[2018-08-20] MEDS: Metoprolol Succinate 50 MG Tab.ER PO SCH ×2 (08:35→21:09)
[2018-08-20] MEDS: Calcitriol 0.25 MCG Cap PO SCH (08:35)
[2018-08-20] MEDS: Cholecalciferol (Vitamin D3) 400 Unit Tab PO SCH (08:36)
[2018-08-20] MEDS: Lutein/Minerals/Vit A,C & E Tab PO SCH ×2 (08:36→21:12)
[2018-08-20] MEDS: Losartan 50 MG Tab PO SCH ×2 (08:36→21:10)
[2018-08-20] MEDS: Hydrochlorothiazide/Triamterene 25-37.5 Tab PO SCH (08:37)
[2018-08-20] MEDS: Dabigatran 75 MG Cap PO SCH ×2 (08:38→21:11)
[2018-08-20] MEDS: Calcium Carbonate 500 MG Tab.Chew PO SCH (08:38)
[2018-08-20] MEDS: diphenhydrAMINE 25 MG Tab PO PRN (21:10)
[2018-08-20] MEDS: Acetaminophen 325 MG Tab PO PRN (21:12)
[2018-08-21] MEDS: Levothyroxine 100 MCG Tab PO SCH (06:40)
[2018-08-21] MEDS: Levothyroxine 75 MCG Tab PO SCH (06:40)
[2018-08-21] MEDS: Carbidopa/Levodopa 25-100 MG Tab PO SCH (09:08)
[2018-08-21] MEDS: Sodium Bicarbonate 650 MG Tab PO SCH (09:08)
[2018-08-21] MEDS: Dabigatran 75 MG Cap PO SCH (09:09)
[2018-08-21] MEDS: Metoprolol Succinate 50 MG Tab.ER PO SCH (09:09)
[2018-08-21] MEDS: Hydrochlorothiazide/Triamterene 25-37.5 Tab PO SCH (09:10)
[2018-08-21] MEDS: Losartan 50 MG Tab PO SCH (09:11)
[2018-08-21] MEDS: Calcitriol 0.25 MCG Cap PO SCH (09:11)
[2018-08-21] MEDS: Cholecalciferol (Vitamin D3) 400 Unit Tab PO SCH (09:12)
[2018-08-21] MEDS: Lutein/Minerals/Vit A,C & E Tab PO SCH (09:12)
[2018-08-21] MEDS: Calcium Carbonate 500 MG Tab.Chew PO SCH (09:13)
--- NOTE | 2018-08-21 11:33 | PCM.DCSUM1 ---
Discharge Summary - Hospital Course Free Text/Narrative:: 78 yo F with PMH of Parkinson's disease, atrial fibrillation on Pradaxa, CKD with solitary kidney, who sustained a mechanical fall and had a right hip fracture is s/p right hip arthroplasty. She was admitted to swing bed after hospital stay for rehabilitation, pt/ot. During hospitalization, she had anemia, likely 2/2 acute blood loss from hip fx and surgery hemoglobin improved prior to discharge Pradaxa was held during episode of acute anemia. This has been resumed. She also had a troponin leak, was seen by cardiology and no acute intervention was required. Final diagnosis: Hip Fracture s/p R Hip Arthroplasty -PT.OT for rehab Acute blood loss anemia CKD III had appt with dr. Pierre today start tums recheck in 3 mo Parkinson's disease -continue carbidopa/levodopa Atrial fibrillation Rate control: continue metoprolol Anticoaglation: restarted pradaxa Hypothyroidism continue levothyroxine Hypertension continue HCTZ, losartan Gout - Discharge Data Discharge Date: 08/21/18 Discharge Disposition: Home, W Home Health Agency 06 Condition: Good - Patient Summary/Data Consults: Consultations 08/07/18 15:27 OT Evaluation and Treatment [CONS] Routine PT Evaluation and Treatment [CONS] Routine - Patient Instructions Diet: Usual Diet as Tolerated Activity: As Tolerated - Discharge Plan Home Medications: Home Meds Acetaminophen/Diphenhydramine [Tylenol Pm Ex-Strength Caplet] 1 tab PO DAILY PRN 08/07/18 [History] Calcitriol 0.25 cap PO DAILY 08/07/18 [History] Carbidopa/Levodopa [Carbidopa-Levo 25-100 MG ODT] 1 tab PO TID 08/07/18 [History ] Cholecalciferol (Vitamin D3) [Vitamin D3] 1,000 units PO DAILY 08/07/18 [History ] Dabigatran [Pradaxa] 150 mg PO BID 08/07/18 [History] Levothyroxine 175 mcg PO ACBREAKFAST 08/07/18 [History] Losartan [Cozaar] 50 mg PO BID 08/07/18 [History] Metoprolol Succinate [Toprol XL 100mg] 100 - 150 mg PO ASDIRECTED 08/07/18 [ History] Sodium Bicarbonate 325 mg PO BID 08/07/18 [History] Triamterene/Hydrochlorothiazid [Triamterene-HCTZ 37.5-25 MG] 1 tab PO DAILY 11/12 [History] Vit C/E/Zn/Coppr/Lutein/Zeaxan [Preservision Areds 2 Softgel] 1 cap PO BID 08/07 [History] Acetaminophen [Tylenol Extra Strength] 500 mg PO BEDTIME PRN tablet 08/21/18 [ Rx] Acetaminophen [Tylenol] 650 mg PO Q4H PRN tablet 08/21/18 [Rx] Patient Handouts: Partial Hip Replacement, Care After, Hip Fracture - General Info Date of Service: 08/21/18 - Review of Systems General: Reports: No Symptoms Pulmonary: Reports: No Symptoms Cardiovascular: Reports: No Symptoms Musculoskeletal: Reports: Leg Pain Psychiatric: Reports: No Symptoms - Patient Data Vitals - Most Recent: Last Vital Signs Temp 36.8 C 08/21/18 08:00 Pulse 84 08/21/18 09:09 Resp 18 08/21/18 08:00 BP 115/64 08/21/18 09:11 Pulse Ox 100 08/21/18 08:00 Weight - Most Recent: 97.069 kg I&O - Last 24 hours: Intake & Output 08/20/18 08/21/18 08/21/18 22:59 06:59 14:59 Intake Total 450 Balance 450 Med Orders - Current: Current Medications Acetaminophen (Tylenol) 650 mg PO Q4H PRN PRN Reason: Pain (mild 1-3) Last Admin: 08/20/18 21:12 Dose: 650 mg Acetaminophen (Tylenol Extra Strength) 500 mg PO BEDTIME PRN PRN Reason: INSOMNIA Last Admin: 08/13/18 01:46 Dose: 500 mg Calcitriol (Rocaltrol) 0.25 mcg PO DAILY [facility] Last Admin: 08/21/18 09:11 Dose: 0.25 mcg Calcium Carbonate/Glycine (Tums) 500 mg PO BIDMEALS PRN PRN Reason: Abdominal Pain Last Admin: 08/12/18 08:52 Dose: 500 mg Calcium Carbonate/Glycine (Tums) 500 mg PO WITHBREAKFAST [facility] Last Admin: 08/21/18 09:13 Dose: 500 mg Carbidopa/Levodopa (Sinemet 25-100 Mg) 1 tab PO TID [facility] Last Admin: 08/21/18 09:08 Dose: 1 tab Cholecalciferol (Vitamin D3) 1,000 units PO DAILY [facility] Last Admin: 08/21/18 09:12 Dose: 1,000 units Dabigatran (Pradaxa) 150 mg PO BID [facility] Last Admin: 08/21/18 09:09 Dose: 150 mg Diphenhydramine HCl (Benadryl) 25 mg PO BEDTIME PRN PRN Reason: Insomnia Last Admin: 08/20/18 21:10 Dose: 25 mg Levothyroxine Sodium (Synthroid) 100 mcg PO ACBREAKFAST [facility] Last Admin: 08/21/18 06:40 Dose: 100 mcg Levothyroxine Sodium (Levothyroxine) 75 mcg PO ACBRK [facility] Last Admin: 08/21/18 06:40 Dose: 75 mcg Losartan Potassium (Cozaar) 50 mg PO BID [facility] Last Admin: 08/21/18 09:11 Dose: 50 mg Metoprolol Succinate (Toprol Xl) 150 mg PO DAILY [facility] Last Admin: 08/21/18 09:09 Dose: 150 mg Metoprolol Succinate (Toprol Xl) 100 mg PO BEDTIME [facility] Last Admin: 08/20/18 21:09 Dose: 100 mg Multivitamins/Minerals (I-Gucci) 1 each PO BID [facility] Last Admin: 08/21/18 09:12 Dose: 1 each Sodium Bicarbonate (Sodium Bicarbonate) 325 mg PO BID [facility] Last Admin: 08/21/18 09:08 Dose: 325 mg Tramadol HCl (Ultram) 50 mg PO Q6H PRN PRN Reason: Pain (moderate 4-6) Last Admin: 08/12/18 22:25 Dose: 50 mg Triamterene/HCTZ (Maxzide 25-37.5 Mg) 1 each PO DAILY [facility] Last Admin: 08/21/18 09:10 Dose: 1 each Discontinued Medications Non-Formulary Medication (Dabigatran) 150 mg PO DAILY [facility] Prednisone (Prednisone) 5 mg PO ONETIME ONE Stop: 08/10/18 16:17 Last Admin: 08/10/18 16:32 Dose: 5 mg Prednisone (Prednisone) 5 mg PO DAILY [facility] Stop: 08/16/18 18:01 Last Admin: 08/16/18 08:26 Dose: 5 mg Triamterene/HCTZ (Maxzide 25-37.5 Mg) Confirm Administered Dose 1 each .ROUTE .STK-MED ONE Stop: 08/17/18 11:06 Last Admin: 08/17/18 11:26 Dose: Not Given - Exam General: Reports: Alert, Oriented, Cooperative Neck: Reports: Supple Lungs: Reports: Clear to Auscultation, Normal Respiratory Effort Cardiovascular: Reports: Regular Rate, Regular Rhythm Extremities: Normal Inspection, Normal Range of Motion, Non-Tender, No Pedal Edema, Normal Capillary Refill
== END 2018-08-21 12:45 | disposition home health service (06) | DRG 560 ==
LOC: DL.MS 13:42 → UNDOADMIN 13:42 → DL.MS 15:27
PROVIDERS: ADMIT Hospitalist; ATTEND Hospitalist
DX: Z47.1 Aftercare following joint replacement surgery (principal); Q60.0 Renal agenesis, unilateral; D62 Acute posthemorrhagic anemia; Z96.641 Presence of right artificial hip joint; G20 Parkinson's disease; M10.9 Gout, unspecified; I48.91 Unspecified atrial fibrillation; E03.9 Hypothyroidism, unspecified; E66.9 Obesity, unspecified; Z68.30 Body mass index [BMI] 30.0-30.9, adult; E53.8 Deficiency of other specified B group vitamins; I12.9 Hypertensive chronic kidney disease with stage 1 through stage 4 chronic kidney disease, or unspecified chronic kidney disease; N18.3 Chronic kidney disease, stage 3 (moderate); I25.10 Atherosclerotic heart disease of native coronary artery without angina pectoris; H54.7 Unspecified visual loss; M19.90 Unspecified osteoarthritis, unspecified site; G62.9 Polyneuropathy, unspecified; Z79.02 Long term (current) use of antithrombotics/antiplatelets; Z88.8 Allergy status to other drugs, medicaments and biological substances; Z79.899 Other long term (current) drug therapy
CPT/HCPCS: 36415; 80048; 82728; 83540; 83550; 84550; 85025; 85027; 97110-GO; 97110-GP; 97116-GP; 97162-GP; 97165-GO; 97530-GO; 97535-GO; A9270-GY

== ENCOUNTER → 2020-09-15 | Day surgery (SDC) | payer MEDICARE, BC ==
[~2020-09-15] MED LIST: Acetaminophen 325 MG Tab PO PRN; Apraclonidine 0.5% Ophth Soln 5 ML Bot EYELF ONE; Balanced Salt Solution Ophth Irrig 500 ML Bottle IOCULAR ONE; Cataract Ophth Solution EYELF ONE; Chondroitin Sulfate/Hyaluronate Sodium Ophth Inj 0.75 ML Syringe EYELF ONE; Dexamethasone 4 MG/ML SDV IV ONE; Dexamethasone/Neomycin/Polymyxin B Ophth Oint 3.5 GM Tube EYELF ONE; Diclofenac Sodium 0.1% Ophth Soln 5 ML Bottle EYELF ONE; Lidocaine 1% 30 ML SDV ONE; Midazolam 1 MG/ML 2 ML SDV IV ONE; Moxifloxacin 0.5% Ophth Soln 3 ML Bottle EYELF ONE; Ondansetron 4 MG/2 ML SDV IVPUSH PRN; Phenylephrine 10% Ophth Soln 5 ML Bot EYELF ONE; Phenylephrine 10% Ophth Soln 5 ML Bot EYELF PRN; Povidone-Iodine 5% Sterile Ophth Soln 30 ML Bottle EYELF ONE; Proparacaine 0.5% Ophth Soln 15 ML Bottle EYELF ONE; Sodium Chloride 0.9% 10 ML Syringe FLUSH PRN; Sodium Chloride 0.9% 10 ML Syringe IV ONE; Tetracaine HCl/PF 0.5% 4 ML Bottle EYELF ONE; Timolol Maleate 0.5% Ophth Soln 5 ML Bottle EYELF ONE; Tropicamide 1% Ophth Soln 15 ML Bottle EYELF ONE; Vancomycin 500 MG SDV EYELF ONE
--- NOTE | 2020-09-16 11:01 | OR ---
DATE: 09/15/2020 PREOPERATIVE DIAGNOSIS: Visually significant mixed cataract, left eye. POSTOPERATIVE DIAGNOSIS: Visually significant mixed cataract, left eye. PROCEDURE: Extracapsular cataract extraction with intraocular lens implant, left eye. ANESTHESIA: Topical/local MAC. COMPLICATIONS: None. INDICATION: Ms. Morales was seen in the clinic. Examination revealed visually significant mixed cataract. She is unhappy with her vision, noticing a progressive change. I explained options, offered cataract surgery, and I explained risks, including, but not limited to, infection, retinal detachment, loss of vision, need for additional surgery, and risks associated with anesthesia. We discussed implant options. She has requested a monofocal implant. She understands that she may still require glasses for some activities following surgery. OPERATIVE DESCRIPTION: After informed consent was obtained and the risks, benefits, and alternatives were explained, the patient was brought to the operative suite and topical anesthesia was administered. The patient was then prepped and draped in the sterile fashion and attention was placed on the left eye. A sterile lid speculum was placed into the left eye to allow operative exposure. A full-thickness paracentesis was made in the temporal portion of the operative eye. Preservative-free lidocaine 0.1 mL was injected into the anterior chamber followed by viscoelastic. A full-thickness corneal incision was then made into the anterior chamber. A bent needle cystotome was used to create a small derick in the anterior capsule. The capsulorrhexis forceps was then used to create a 360-degree curvilinear capsulorrhexis. The nucleus was then removed using a phacoemulsification handpiece and the remaining cortical material was then removed with irrigation and aspiration handpiece. Following removal of the cortical material, the capsular bag was then inspected and noted to be free of any holes or tears. Viscoelastic was then injected into the capsular bag and the intraocular lens was inserted into the capsular bag. The viscoelastic material was then removed from both the anterior and posterior chambers and from behind the IOL. The lens and capsular bag were then reinspected. The IOL was well centered and the capsular bag intact. The wound and paracentesis sites were inspected and hydrated with balanced saline solution. Both were found to be self- sealing. The intraocular pressure was assessed digitally and found to be within normal range. A good red reflex was noted at the completion of the procedure. No complications occurred during the operation. At the completion of the procedure, Donn Voltaren, and Iopidine drops were placed into the operative eye. A sterile eye shield was placed over the operative eye and the patient was transported to the postoperative recovery area having tolerated the procedure well. Postoperative instructions were given along with a postoperative appointment. The patient was advised to call with any questions or concerns. [facility] /[id number]
== END | disposition home or self-care (01) ==
LOC: DL.SDS 06:47
PROVIDERS: ATTEND Ophthalmology
DX: H25.813 Combined forms of age-related cataract, bilateral (principal); N18.9 Chronic kidney disease, unspecified; E78.5 Hyperlipidemia, unspecified; I12.9 Hypertensive chronic kidney disease with stage 1 through stage 4 chronic kidney disease, or unspecified chronic kidney disease; E03.9 Hypothyroidism, unspecified; E66.9 Obesity, unspecified; Z79.899 Other long term (current) drug therapy; Z88.8 Allergy status to other drugs, medicaments and biological substances; Z68.27 Body mass index [BMI] 27.0-27.9, adult; I48.91 Unspecified atrial fibrillation; Z79.01 Long term (current) use of anticoagulants; D63.1 Anemia in chronic kidney disease; Z86.79 Personal history of other diseases of the circulatory system
CPT/HCPCS: 00142; 66984; A9270; J1100; J2001; J2250; J3370; V2632

== ENCOUNTER 2020-09-22 06:37 | Day surgery (SDC) | payer MEDICARE, BC ==
[2020-09-22] MEDS ORDERED: Midazolam 1 MG/ML 2 ML SDV IV ONE (06:38)
[2020-09-22] MEDS ORDERED: Dexamethasone 4 MG/ML SDV IV ONE (06:38)
[2020-09-22] MEDS ORDERED: Sodium Chloride 0.9% 10 ML Syringe IV ONE (06:38)
[2020-09-22] MEDS ORDERED: Phenylephrine 10% Ophth Soln 5 ML Bot EYERT PRN (07:00)
[2020-09-22] MEDS ORDERED: Acetaminophen 325 MG Tab PO PRN (07:00)
[2020-09-22] MEDS ORDERED: Moxifloxacin 0.5% Ophth Soln 3 ML Bottle EYERT ONE (07:00)
[2020-09-22] MEDS ORDERED: Ondansetron 4 MG/2 ML SDV IVPUSH PRN (07:00)
[2020-09-22] MEDS ORDERED: Cataract Ophth Solution EYERT ONE (07:00)
[2020-09-22] MEDS ORDERED: Tropicamide 1% Ophth Soln 15 ML Bottle EYERT ONE (07:00)
[2020-09-22] MEDS ORDERED: Sodium Chloride 0.9% 10 ML Syringe FLUSH PRN (07:00)
[2020-09-22] MEDS ORDERED: Timolol Maleate 0.5% Ophth Soln 5 ML Bottle EYERT ONE (07:00)
[2020-09-22] MEDS ORDERED: Phenylephrine 10% Ophth Soln 5 ML Bot EYERT ONE ×2 (07:00→08:25)
[2020-09-22] MEDS ORDERED: Povidone-Iodine 5% Sterile Ophth Soln 30 ML Bottle EYERT ONE ×2 (07:00→08:25)
[2020-09-22] MEDS ORDERED: Proparacaine 0.5% Ophth Soln 15 ML Bottle EYERT ONE (07:00)
[2020-09-22] MEDS ORDERED: Tetracaine HCl/PF 0.5% 4 ML Bottle EYERT ONE (08:25)
[2020-09-22] MEDS ORDERED: Balanced Salt Solution Ophth Irrig 500 ML Bottle IOCULAR ONE (08:25)
[2020-09-22] MEDS ORDERED: Lidocaine 1% 30 ML SDV ONE (08:25)
[2020-09-22] MEDS ORDERED: Apraclonidine 0.5% Ophth Soln 5 ML Bot EYERT ONE (08:25)
[2020-09-22] MEDS ORDERED: Diclofenac Sodium 0.1% Ophth Soln 5 ML Bottle EYERT ONE (08:25)
[2020-09-22] MEDS ORDERED: Chondroitin Sulfate/Hyaluronate Sodium Ophth Inj 0.75 ML Syringe EYERT ONE (08:25)
[2020-09-22] MEDS ORDERED: Vancomycin 500 MG SDV EYERT ONE (08:25)
--- NOTE | 2020-09-22 15:03 | OR ---
DATE: 09/22/2020 PREOPERATIVE DIAGNOSIS: Visually significant mixed cataract, right eye. POSTOPERATIVE DIAGNOSIS: Visually significant mixed cataract, right eye. PROCEDURE: Extracapsular cataract extraction with intraocular lens implant, right eye. ANESTHESIA: Topical/local MAC. COMPLICATIONS: None. INDICATION: Ms. Morales was seen in the clinic. She is unhappy with her vision noticing a progressive change. The examination revealed visually significant mixed cataract. I explained options, offered cataract surgery and I explained risks, including, but not limited to, infection, retinal detachment, loss of vision, need for additional surgery, and risks associated with anesthesia. We discussed implant options. She has requested a monofocal implant. She understands that she may require glasses for some activities following surgery. OPERATIVE DESCRIPTION: After informed consent was obtained and the risks, benefits, and alternatives were explained, the patient was brought to the operative suite and topical anesthesia was administered. The patient was then prepped and draped in the sterile fashion and attention was placed on the right eye. A sterile lid speculum was placed into the right eye to allow operative exposure. A full-thickness paracentesis was made in the temporal portion of the operative eye. Preservative-free lidocaine 0.1 mL was injected into the anterior chamber followed by viscoelastic. A full-thickness corneal incision was then made into the anterior chamber. A bent needle cystotome was used to create a small derick in the anterior capsule. The capsulorrhexis forceps was then used to create a 360-degree curvilinear capsulorrhexis. The nucleus was then removed using a phacoemulsification handpiece and the remaining cortical material was then removed with irrigation and aspiration handpiece. Following removal of the cortical material, the capsular bag was then inspected and noted to be free of any holes or tears. Viscoelastic was then injected into the capsular bag and the intraocular lens was inserted into the capsular bag. The viscoelastic material was then removed from both the anterior and posterior chambers and from behind the IOL. The lens and capsular bag were then reinspected. The IOL was well centered and the capsular bag intact. The wound and paracentesis sites were inspected and hydrated with balanced saline solution. Both were found to be self- sealing. The intraocular pressure was assessed digitally and found to be within normal range. A good red reflex was noted at the completion of the procedure. No complications occurred during the operation. At the completion of the procedure, Shira Popn, and Iopidine drops were placed into the operative eye. A sterile eye shield was placed over the operative eye and the patient was transported to the postoperative recovery area having tolerated the procedure well. Postoperative instructions were given along with a postoperative appointment. The patient was advised to call with any questions or concerns. [facility] /[id number]
== END 2020-09-22 09:40 | disposition home or self-care (01) ==
LOC: DL.SDS 06:37
PROVIDERS: ATTEND Ophthalmology
DX: H25.811 Combined forms of age-related cataract, right eye (principal); I48.91 Unspecified atrial fibrillation; I25.10 Atherosclerotic heart disease of native coronary artery without angina pectoris; Z95.5 Presence of coronary angioplasty implant and graft; E78.5 Hyperlipidemia, unspecified; I12.9 Hypertensive chronic kidney disease with stage 1 through stage 4 chronic kidney disease, or unspecified chronic kidney disease; E03.9 Hypothyroidism, unspecified; E66.9 Obesity, unspecified; N18.32 Chronic kidney disease, stage 3b; D63.1 Anemia in chronic kidney disease; Z80.0 Family history of malignant neoplasm of digestive organs; Z90.89 Acquired absence of other organs; Z79.899 Other long term (current) drug therapy; Z79.890 Hormone replacement therapy; Z88.8 Allergy status to other drugs, medicaments and biological substances; Z79.01 Long term (current) use of anticoagulants; Z68.27 Body mass index [BMI] 27.0-27.9, adult
CPT/HCPCS: 66984; J1100; J2001; J2250; J3370; V2632

== ENCOUNTER 2021-04-28 14:28 | Emergency (ER) | payer MEDICARE, BC ==
--- NOTE | 2021-04-28 14:34 | EDM.PDOC ---
ED HPI GENERAL MEDICAL PROBLEM - General Chief Complaint: General Stated Complaint: WEAK FEELS LIKE VOMITING TIRED Time Seen by Provider: 04/28/21 14:34 Source of Information: Reports: Patient, Old Records, RN, RN Notes Reviewed History Limitations: Reports: No Limitations - History of Present Illness INITIAL COMMENTS - FREE TEXT/NARRATIVE: Pt sent from clinic for evaluation of 3 weeks duration of generalized fatigue with nausea. Pt reports decreased appetite. She was seen in clinic by nephrology today, but states no changes were made to her medications. She denies vomiting, pain, diarrhea, constipation, dysuria, flank pain, chest pain, headache, or any other symptoms. Pt has an appointment with her PCP next week. Duration: Week(s): (3), Constant Location: Reports: Generalized Quality: Reports: Other (Denies pain) Severity: Moderate Improves with: Reports: None Worsens with: Reports: None Associated Symptoms: Reports: No Other Symptoms - Related Data Allergies Allergy/AdvReac Type Severity Reaction Status Date / Time alendronate sodium AdvReac Other Verified 09/22/20 06:58 [From Fosamax] cerivastatin [From Baycol] AdvReac Other Verified 09/22/20 06:58 meperidine [From Demerol] AdvReac Nausea and Verified 09/22/20 06:58 Vomiting NSAIDS (Non-Steroidal AdvReac Other Verified 09/22/20 06:58 Anti-Inflamma oxycodone AdvReac Nausea and Verified 09/22/20 06:58 Vomiting [id number] Reductase AdvReac Muscle Verified 09/22/20 06:58 Inhibitor Aches Home Meds: Home Meds Acetaminophen/Diphenhydramine [Tylenol Pm Ex-Strength Caplet] 1 tab PO DAILY PRN 08/07/18 [History] Carbidopa/Levodopa [Carbidopa-Levo 25-100 MG ODT] 25 - 100 mg PO TID 08/07/18 [History] Cholecalciferol (Vitamin D3) [Vitamin D3] 1,000 units PO DAILY 08/07/18 [History] Dabigatran [Pradaxa] 150 mg PO BID 08/07/18 [History] Levothyroxine 175 mcg PO ACBREAKFAST 08/07/18 [History] Losartan [Cozaar] 50 mg PO BID 08/07/18 [History] Metoprolol Succinate [Toprol XL 100mg] 100 - 150 mg PO ASDIRECTED 08/07/18 [History] Sodium Bicarbonate 325 mg PO BID 08/07/18 [History] Vit C/E/Zn/Coppr/Lutein/Zeaxan [Preservision Areds 2 Softgel] 1 cap PO BID 08/07/18 [History] calcitrioL [Calcitriol] 0.25 cap PO DAILY 08/07/18 [History] Acetaminophen [Tylenol] 650 mg PO Q4H PRN tablet 08/21/18 [Rx] Amitriptyline [Elavil] 5 mg PO BEDTIME 09/06/20 [History] Aspirin [Halfprin] 81 mg PO DAILY 09/06/20 [History] Calcitonin,[place],Synthetic [Calcitonin-[place]] 1 spray MARINE ASDIRECTED 09/06/20 [History] Cyanocobalamin (Vitamin B-12) [Vitamin B-12] 1,000 mcg PO Q48H 09/06/20 [History] Famotidine 20 mg PO DAILY 09/06/20 [History] Fluorometholone [Fluorometholone 0.1% Ophth Susp] 1 drop EYEBOTH ASDIRECTED 09/06/20 [History] Furosemide [Lasix] 20 mg PO DAILY 09/06/20 [History] Gmpt-Ornu-Oaxju [Cataract Opthalmic Solution] 1 drop EYEBOTH ASDIRECTED 09/06/20 [History] allopurinoL [Zyloprim] 100 mg PO DAILY 09/06/20 [History] amLODIPine [Norvasc] 5 mg PO DAILY 09/06/20 [History] metOLazone [Metolazone] 5 mg PO ASDIRECTED 09/06/20 [History] tiZANidine [Zanaflex] 4 mg PO TID PRN 09/06/20 [History] Past Medical History HEENT History: Reports: Cataract, Impaired Vision Other HEENT History: CORRECTIVE LENS. Partials upper and lower Cardiovascular History: Reports: Afib, CAD, High Cholesterol, Hypertension, Stents Other Cardiovascular History: x3 stents Respiratory History: Reports: None Gastrointestinal History: Reports: Chronic Diarrhea, GERD Genitourinary History: Reports: Chronic Renal Insuffiency, Other (See Below) Other Genitourinary History: CONGENITAL SINGLE KIDNEY PROTECTION ANALYST History: Reports: Fibroids, , Spontaneous , Other (See Below) Other PROTECTION ANALYST History: FIBROCYSTIC BREAST DISEASE Musculoskeletal History: Reports: Fracture, Gout, Osteoarthritis Neurological History: Reports: Neuropathy, Peripheral, Parkinson's Psychiatric History: Reports: None Endocrine/Metabolic History: Reports: Hypothyroidism, Obesity/BMI 30+ Hematologic History: Reports: B12 Deficiency, Blood Transfusion(s) Immunologic History: Reports: None Oncologic (Cancer) History: Reports: None Dermatologic History: Reports: None - Infectious Disease History Infectious Disease History: Reports: Chicken Pox, Measles, Mumps, Shingles - Past Surgical History Head Surgeries/Procedures: Reports: None HEENT Surgical History: Reports: Cataract Surgery, Oral Surgery, Other (See Below) Other HEENT Surgeries/Procedures: UPPER PARTIAL Cardiovascular Surgical History: Reports: Coronary Artery Stent Respiratory Surgical History: Reports: None GI Surgical History: Reports: Appendectomy, Bariatric Procedure, Cholecystectomy, Colonoscopy Female Surgical History: Reports: Breast Biopsy, D&C, Hysterectomy, Salpingo- Oophorectomy Endocrine Surgical History: Reports: None Neurological Surgical History: Reports: None Musculoskeletal Surgical History: Reports: Hip Replacement, Knee Replacement, Other (See Below) Other Musculoskeletal Surgeries/Procedures:: FOOT SURGERY. MUSCLE BIOPSY. bilteral knee replacement. right hip replacement Oncologic Surgical History: Reports: None Dermatological Surgical History: Reports: None Social & Family History - Family History Family Medical History: No Pertinent Family History - Caffeine Use Caffeine Use: Reports: Coffee Other Caffeine Use: AVERAGE OF 2-3 CUPS DAILY - Living Situation & Occupation Living situation: Reports: Alone, Assisted Living Occupation: Retired ED ROS GENERAL - Review of Systems Review Of Systems: Comprehensive ROS is negative, except as noted in HPI. ED EXAM, GENERAL - Physical Exam Exam: See Below Exam Limited By: No Limitations General Appearance: Alert, WD/WN, No Apparent Distress, Obese Eye Exam: Bilateral Eye: Normal Inspection Nose: Normal Inspection, Normal Mucosa, No Blood Throat/Mouth: Normal Inspection, Normal Lips, Normal Voice, No Airway Compromise Head: Atraumatic, Normocephalic Neck: Normal Inspection, Supple, Non-Tender, Full Range of Motion Respiratory/Chest: No Respiratory Distress, Lungs Clear, Normal Breath Sounds, No Accessory Muscle Use, Chest Non-Tender Cardiovascular: Irregularly Irregular GI/Abdominal: Normal Bowel Sounds, Soft, Non-Tender Back Exam: Normal Inspection. No: CVA Tenderness (L), CVA Tenderness (R) Extremities: Normal Inspection, Normal Capillary Refill, Pedal Edema (+3 pitting edema to knees B/L, chronic/stable per pt). No: Joint Swelling, Trevor's Sign, Increased Warmth, Mottled, Pallor, Redness Neurological: Alert, Oriented, CN II-XII Intact, Normal Cognition, No Motor/Sensory Deficits Psychiatric: Normal Affect, Normal Mood Skin Exam: Warm, Dry, Intact, Normal Color, No Rash #1 Interpretation EKG Date: 04/28/21 Time: 14:48 Rhythm: A-Fib Rate (Beats/Min): 74 [place]: Normal P-Wave: Absent QRS: Normal ST-T: Other (Nonspecific repol. abnormality) QT: Normal Comparison: No Change Course - Vital Signs Last Recorded V/S: Last Vital Signs Temp 97 F 04/28/21 14:48 Pulse 79 04/28/21 14:48 Resp 18 04/28/21 14:48 BP 134/78 04/28/21 14:48 Pulse Ox 98 04/28/21 14:48 - Orders/Labs/Meds Orders: Active Orders 24 hr Category Date Time Status EKG 12 Lead [EKG Documentation Completion] [RC] STAT Care 04/28/21 14:46 Active AMYLASE [CHEM] Stat Lab 04/28/21 14:58 Received B-TYPE NATRIURETIC PEPTIDE,BNP [CHEM] Stat Lab 04/28/21 14:58 Received COMPREHENSIVE METABOLIC PN,CMP [CHEM] Stat Lab 04/28/21 14:58 Received CULTURE URINE [RM] Stat Lab 04/28/21 14:41 Received LIPASE [CHEM] Stat Lab 04/28/21 14:58 Received Labs: Laboratory Tests 04/28/21 04/28/21 04/28/21 Range/Units 14:41 14:58 14:58 WBC 4.2 L (5.0-10.0) 10^3/uL RBC 3.70 L (4.2-5.4) 10^6/uL Hgb 11.3 L D (12.0-16.0) g/dL Hct 34.6 L (37.0-47.0) % MCV 93.5 (80-100) fL MCH 30.5 (27.0-34.0) pg MCHC 32.7 L (33.0-35.0) g/dL Plt Count 220 D (150-450) 10^3/uL Neut % (Auto) 59.3 (42.2-75.2) % Lymph % (Auto) 24.5 (20.5-50.1) % [place] % (Auto) 15.3 H (2-8) % Eos % (Auto) 0.7 L (1.0-3.0) % Baso % (Auto) 0.2 (0.0-1.0) % B-Natriuretic Peptide 198 H (0-100) pg/ml Urine Color Yellow (YELLOW) Urine Appearance Turbid (CLEAR) Urine pH 5.0 (5.0-9.0) Ur Specific [place] 1.015 (1.005-1.030) Urine Protein Trace H (NEGATIVE) Urine Glucose (UA) Negative (NEGATIVE) Urine Ketones Negative (NEGATIVE) Urine Occult Blood Trace-intact H (NEGATIVE) Urine Nitrite Positive H (NEGATIVE) Urine Bilirubin Negative (NEGATIVE) Urine Urobilinogen 0.2 (0.2-1.0) mg/dL Ur Leukocyte Esterase Small H (NEGATIVE) Urine RBC 10-20 H /HPF Urine WBC 75-100 H (0-5/HPF) /HPF Ur Epithelial Cells Moderate H (NOT SEEN) /HPF Amorphous Sediment Moderate H (NOT SEEN) /HPF Urine Bacteria Many H (0-FEW/HPF) /HPF Urine Mucus Few H (NOT SEEN) /LPF Urine Yeast Few H (NOT SEEN) /HPF Meds: Medications Discontinued Medications Generic Name Dose Route Start Last Admin Trade Name Freq PRN Reason Stop Dose Admin Cephalexin 500 mg 04/28/21 15:24 Cephalexin 500 Mg Cap PO 04/28/21 15:25 ONETIME ONE Fluconazole 200 mg 04/28/21 15:24 Fluconazole 100 Mg Tab PO 04/28/21 15:25 ONETIME ONE Ondansetron HCl 4 mg 04/28/21 15:24 Ondansetron 4 Mg Tab.Dis PO 04/28/21 15:25 ONETIME ONE Departure - Departure Time of Disposition: 15:33 Disposition: Home, Self-Care 01 Condition: Good Clinical Impression: Yeast cystitis Urinary tract infection Qualifiers: Urinary tract infection type: site unspecified Hematuria presence: without hematuria Qualified Code(s): N39.0 - Urinary tract infection, site not specified - Discharge Information *PRESCRIPTION DRUG MONITORING PROGRAM REVIEWED*: Not Applicable *COPY OF PRESCRIPTION DRUG MONITORING REPORT IN PATIENT REYNALDO: Not Applicable Instructions: Urinary Tract Infection, Adult, Nausea, Adult Forms: ED Department Discharge Additional Instructions: Rx: Cephalexin 500mg Rx: Diflucan 100mg Rx: Zofran 4mg Follow up in clinic with [facility] NP as scheduled. Sepsis Event Note (ED) - Focused Exam Vital Signs: Vital Signs Temp Pulse Resp BP Pulse Ox 04/28/21 14:48 97 F 79 18 134/78 98 - My Orders Last 24 Hours: My Active Orders 04/28/21 14:41 CULTURE URINE [RM] Stat 04/28/21 14:46 EKG 12 Lead [EKG Documentation Completion] [RC] STAT 04/28/21 14:58 AMYLASE [CHEM] Stat B-TYPE NATRIURETIC PEPTIDE,BNP [CHEM] Stat COMPREHENSIVE METABOLIC PN,CMP [CHEM] Stat LIPASE [CHEM] Stat - Assessment/Plan Last 24 Hours: My Active Orders 04/28/21 14:41 CULTURE URINE [RM] Stat 04/28/21 14:46 EKG 12 Lead [EKG Documentation Completion] [RC] STAT 04/28/21 14:58 AMYLASE [CHEM] Stat B-TYPE NATRIURETIC PEPTIDE,BNP [CHEM] Stat COMPREHENSIVE METABOLIC PN,CMP [CHEM] Stat LIPASE [CHEM] Stat
[2021-04-28] MEDS ORDERED: Fluconazole 100 MG Tab PO ONE (15:24)
[2021-04-28] MEDS ORDERED: Cephalexin 500 MG Cap PO ONE (15:24)
[2021-04-28] MEDS ORDERED: Ondansetron 4 MG Tab.DIS PO ONE (15:24)
[2021-04-28 15:25] LABS: ANION GAP 11.1 mEq/L (7-13)
== END 2021-04-28 15:44 | disposition home or self-care (01) ==
LOC: DL.ED 14:28
DX: B37.41 Candidal cystitis and urethritis (principal); E03.9 Hypothyroidism, unspecified; E66.9 Obesity, unspecified; I12.9 Hypertensive chronic kidney disease with stage 1 through stage 4 chronic kidney disease, or unspecified chronic kidney disease; N18.9 Chronic kidney disease, unspecified; I25.10 Atherosclerotic heart disease of native coronary artery without angina pectoris; E78.00 Pure hypercholesterolemia, unspecified; Z95.5 Presence of coronary angioplasty implant and graft; Z88.5 Allergy status to narcotic agent; Z88.8 Allergy status to other drugs, medicaments and biological substances; Z79.899 Other long term (current) drug therapy; Z79.82 Long term (current) use of aspirin
CPT/HCPCS: 36415; 80053; 81001; 82150; 83690; 83880; 85025; 87086; 87088; 87186; 93005; 93010; 99283; A9270

== ENCOUNTER 2021-08-28 12:31 | Inpatient (IN) | payer MEDICARE, BC ==
[2021-08-28] MEDS ORDERED: Sodium Chloride 0.9% 10 ML Syringe FLUSH PRN (13:41)
--- NOTE | 2021-08-28 13:52 | EDM.PDOC ---
ED HPI GENERAL MEDICAL PROBLEM - General Stated Complaint: VERY WEAK / CAN NO LONGER WALK Time Seen by Provider: 08/28/21 13:30 Source of Information: Reports: Patient, Family History Limitations: Reports: No Limitations - History of Present Illness INITIAL COMMENTS - FREE TEXT/NARRATIVE: 81 y/o F c/o weakness, frquent falls, cervical neck pn x 2 months. Pt states that she had a uti 2 months ago and since then her condition has deteriorated. She reports that after her uti she went to a chiropractor for neck pain and after her adjustment she has bareley been able to walk and has increased falls. An MRI was done a week ago on her cervical spine which showed significant degenerative changes but reportedly nothing surgical. She has since developed weakness in her lower legs and is no longer able to ambulate around the house. She is on Pradaxa and has multiple bruises from falls. Denies hitting her head and LOC. Denies fever, cough, chills, drugs, eoth. Onset: Gradual Neck Pain Score (Numeric/FACES): 0 - Related Data Allergies Allergy/AdvReac Type Severity Reaction Status Date / Time cerivastatin [From Baycol] AdvReac Intermediate Other Verified 08/28/21 13:16 alendronate sodium AdvReac Other Verified 08/28/21 13:16 [From Fosamax] meperidine [From Demerol] AdvReac Nausea and Verified 08/28/21 13:16 Vomiting NSAIDS (Non-Steroidal AdvReac Other Verified 08/28/21 13:16 Anti-Inflamma oxycodone AdvReac Nausea and Verified 08/28/21 13:16 Vomiting Ykhpzxf-Vef-Mhp Reductase AdvReac Muscle Verified 08/28/21 13:16 Inhibitor Aches Home Meds: Home Meds Acetaminophen/Diphenhydramine [Tylenol Pm Ex-Strength Caplet] 1 tab PO DAILY PRN 08/07/18 [History] Carbidopa/Levodopa [Carbidopa-Levo 25-100 MG ODT] 25 - 100 mg PO TID 08/07/18 [History] Cholecalciferol (Vitamin D3) [Vitamin D3] 1,000 units PO DAILY 08/07/18 [Histor y] Dabigatran [Pradaxa] 150 mg PO BID 08/07/18 [History] Levothyroxine 175 mcg PO ACBREAKFAST 08/07/18 [History] Losartan [Cozaar] 50 mg PO BID 08/07/18 [History] Metoprolol Succinate [Toprol XL 100mg] 100 - 150 mg PO ASDIRECTED 08/07/18 [History] Sodium Bicarbonate 325 mg PO BID 08/07/18 [History] Vit C/E/Zn/Coppr/Lutein/Zeaxan [Preservision Areds 2 Softgel] 1 cap PO BID 08/07/18 [History] calcitrioL [Calcitriol] 0.25 cap PO DAILY 08/07/18 [History] Acetaminophen [Tylenol] 650 mg PO Q4H PRN tablet 08/21/18 [Rx] Amitriptyline [Elavil] 5 mg PO BEDTIME 09/06/20 [History] Aspirin [Halfprin] 81 mg PO DAILY 09/06/20 [History] Calcitonin,[place],Synthetic [Calcitonin-[place]] 1 spray MARINE ASDIRECTED 09/06/20 [History] Cyanocobalamin (Vitamin B-12) [Vitamin B-12] 1,000 mcg PO Q48H 09/06/20 [History ] Famotidine 20 mg PO DAILY 09/06/20 [History] Fluorometholone [Fluorometholone 0.1% Ophth Susp] 1 drop EYEBOTH ASDIRECTED 09/06/20 [History] Furosemide [Lasix] 20 mg PO DAILY 09/06/20 [History] Goyx-Vtxj-Zrmdf [Cataract Opthalmic Solution] 1 drop EYEBOTH ASDIRECTED 09/06/20 [History] allopurinoL [Zyloprim] 100 mg PO DAILY 09/06/20 [History] amLODIPine [Norvasc] 5 mg PO DAILY 09/06/20 [History] metOLazone [Metolazone] 5 mg PO ASDIRECTED 09/06/20 [History] tiZANidine [Zanaflex] 4 mg PO TID PRN 09/06/20 [History] Past Medical History HEENT History: Reports: Cataract, Impaired Vision Other HEENT History: CORRECTIVE LENS. 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 MOLASSES History: Reports: Fibroids, , Spontaneous , Other (See Below) Other EVAPORATOR OPERATOR MOLASSES History: FIBROCYSTIC BREAST DISEASE Musculoskeletal History: Reports: Fracture, Gout, Osteoarthritis Neurological History: Reports: Neuropathy, Peripheral, Parkinson's Psychiatric History: Reports: None Endocrine/Metabolic History: Reports: Hypothyroidism, Obesity/BMI 30+ Hematologic History: Reports: B12 Deficiency, Blood Transfusion(s) Immunologic History: Reports: None Oncologic (Cancer) History: Reports: None Dermatologic History: Reports: None - Infectious Disease History Infectious Disease History: Reports: Chicken Pox, Measles, Mumps, Shingles - Past Surgical History Head Surgeries/Procedures: Reports: None HEENT Surgical History: Reports: Cataract Surgery, Oral Surgery, Other (See Below) Other HEENT Surgeries/Procedures: UPPER PARTIAL Cardiovascular Surgical History: Reports: Coronary Artery Stent Respiratory Surgical History: Reports: None GI Surgical History: Reports: Appendectomy, Bariatric Procedure, Cholecystectomy, Colonoscopy Female Surgical History: Reports: Breast Biopsy, D&C, Hysterectomy, Salpingo- Oophorectomy Endocrine Surgical History: Reports: None Neurological Surgical History: Reports: None Musculoskeletal Surgical History: Reports: Hip Replacement, Knee Replacement, Other (See Below) Other Musculoskeletal Surgeries/Procedures:: FOOT SURGERY. MUSCLE BIOPSY. bilteral knee replacement. right hip replacement Oncologic Surgical History: Reports: None Dermatological Surgical History: Reports: None Social & Family History - Family History Family Medical History: No Pertinent Family History - Caffeine Use Caffeine Use: Reports: Coffee Other Caffeine Use: AVERAGE OF 2-3 CUPS DAILY - Living Situation & Occupation Living situation: Reports: Alone, Assisted Living Occupation: Retired ED ROS GENERAL - Review of Systems Review Of Systems: Comprehensive ROS is negative, except as noted in HPI. ED EXAM, GENERAL - Physical Exam Exam: See Below Exam Limited By: No Limitations General Appearance: Alert, No Apparent Distress Eye Exam: Bilateral Eye: PERRL Ears: Normal External Exam, Normal Canal, Hearing Grossly Normal, Normal TMs Nose: Normal Inspection, Normal Mucosa, No Blood Throat/Mouth: Normal Inspection, Normal Lips, Normal Teeth, Normal Gums, Normal Oropharynx, Normal Voice, No Airway Compromise Head: Atraumatic, Normocephalic Neck: Normal Inspection, Supple, Non-Tender, Full Range of Motion Respiratory/Chest: No Respiratory Distress, Lungs Clear, Normal Breath Sounds, No Accessory Muscle Use, Chest Non-Tender Cardiovascular: Normal Peripheral Pulses, No JVD, No Murmur GI/Abdominal: Soft, Non-Tender (Female) Exam: Deferred Rectal (Female) Exam: Deferred Back Exam: Normal Inspection, Other (tenderness to palpation t8 no step off or crepitus.) Extremities: Other (2+ pedal edema bilaterally. Significant leg weakness bilaterally pt cannot bring feet off the bed) Skin Exam: Warm, Dry, Intact Course - Vital Signs Last Recorded V/S: Last Vital Signs Temp 98.5 F 08/28/21 13:03 Pulse 90 08/28/21 13:03 Resp 14 08/28/21 13:03 BP 140/85 08/28/21 13:03 Pulse Ox 95 08/28/21 13:03 - Orders/Labs/Meds Orders: Active Orders 24 hr Category Date Time Status Peripheral IV Care [RC] . DIRECTED Care 08/28/21 13:41 Active CORONAVIRUS COVID-19 LEXUS [MOLEC] Stat Lab 08/28/21 16:12 Ordered CULTURE URINE [RM] Stat Lab 08/28/21 15:35 Received Sodium Chloride 0.9% [Normal Saline] 1,000 ml Med 08/28/21 15:47 Active IV .BOLUS Sodium Chloride 0.9% [Saline Flush] Med 08/28/21 13:41 Active 10 ml FLUSH ASDIRECTED PRN cefTRIAXone [Rocephin] 2 gm Med 08/28/21 16:14 Active Sodium Chloride 0.9% [Normal Saline] 100 ml IV ONETIME Peripheral IV Insertion Adult [OM.PC] Routine Oth 08/28/21 13:41 Ordered Medication Orders Sodium Chloride (Normal Saline) 1,000 mls @ 999 mls/hr IV .BOLUS ONE Stop: 08/28/21 16:47 Last Admin: 08/28/21 16:25 Dose: 500 mls/hr Documented by: GAEL Ceftriaxone Sodium 2 gm/ (Sodium Chloride) 100 mls @ 200 mls/hr IV ONETIME ONE Stop: 08/28/21 16:43 Last Admin: 08/28/21 16:27 Dose: 200 mls/hr Documented by: GAEL Sodium Chloride (Sodium Chloride 0.9% 10 Ml Syringe) 10 ml FLUSH ASDIRECTED PRN PRN Reason: Keep Vein Open Last Admin: 08/28/21 16:25 Dose: 10 ml Documented by: GAEL Labs: Laboratory Tests 08/28/21 08/28/21 08/28/21 Range/Units 14:17 14:17 15:18 WBC 6.8 (5.0-10.0) 10^3/uL RBC 3.64 L (4.2-5.4) 10^6/uL Hgb 11.5 L (12.0-16.0) g/dL Hct 34.8 L (37.0-47.0) % MCV 95.6 (80-100) fL MCH 31.6 (27.0-34.0) pg MCHC 33.0 (33.0-35.0) g/dL Plt Count 140 L D (150-450) 10^3/uL Neut % (Auto) 79.7 H (42.2-75.2) % Lymph % (Auto) 5.1 L (20.5-50.1) % Travis % (Auto) 15.0 H (2-8) % Eos % (Auto) 0.1 L (1.0-3.0) % Baso % (Auto) 0.1 (0.0-1.0) % PT 12.0 (9.0-12.0) SEC INR 1.2 (0.9-1.2) Sodium 140 (136-145) mmol/L Potassium 4.5 (3.5-5.1) mmol/L Chloride 105 (98-107) mmol/L Carbon Dioxide 25 (21-32) mmol/L Anion Gap 14.5 H (7-13) mEq/L BUN 44 H (7-18) mg/dL Creatinine 1.86 H (0.55-1.02) mg/dL Est Cr Clr Drug Dosing 25.21 mL/min Estimated GFR (MDRD) 26 BUN/Creatinine Ratio 23.7 (No establ ref range) Glucose 92 (70-99) mg/dL Lactic Acid (0.4-2.0) mmol/L Calcium 8.1 L (8.5-10.1) mg/dL Phosphorus 3.8 (2.6-4.7) mg/dL Magnesium 1.8 (1.8-2.4) mg/dL Total Bilirubin 0.9 (0.2-1.0) mg/dL AST 17 (15-37) U/L ALT 7 L (14-59) U/L Alkaline Phosphatase 173 H (46-116) U/L C-Reactive Protein 24.4 H (0.0-0.9) mg/dL B-Natriuretic Peptide 216 H (0-100) pg/ml Total Protein 4.7 L (6.4-8.2) g/dL Albumin 1.9 L (3.4-5.0) g/dL Globulin 2.8 Albumin/Globulin Ratio 0.68 Amylase 15 L (25-115) U/L Lipase 38 L (73-393) U/L TSH, Ultra Sensitive 3.08 (0.36-3.74) uIU/mL Urine Color (YELLOW) Urine Appearance (CLEAR) Urine pH (5.0-9.0) Ur Specific [place] (1.005-1.030) Urine Protein (NEGATIVE) Urine Glucose (UA) (NEGATIVE) Urine Ketones (NEGATIVE) Urine Occult Blood (NEGATIVE) Urine Nitrite (NEGATIVE) Urine Bilirubin (NEGATIVE) Urine Urobilinogen (0.2-1.0) mg/dL Ur Leukocyte Esterase (NEGATIVE) Urine RBC (0-5) /HPF Urine WBC (0-5/HPF) /HPF Ur Epithelial Cells (NOT SEEN) /HPF Amorphous Sediment (NOT SEEN) /HPF Urine Bacteria (0-FEW/HPF) /HPF Urine Mucus (NOT SEEN) /LPF 08/28/21 08/28/21 Range/Units 15:18 15:35 WBC (5.0-10.0) 10^3/uL RBC (4.2-5.4) 10^6/uL Hgb (12.0-16.0) g/dL Hct (37.0-47.0) % MCV (80-100) fL MCH (27.0-34.0) pg MCHC (33.0-35.0) g/dL Plt Count (150-450) 10^3/uL Neut % (Auto) (42.2-75.2) % Lymph % (Auto) (20.5-50.1) % [place] % (Auto) (2-8) % Eos % (Auto) (1.0-3.0) % Baso % (Auto) (0.0-1.0) % PT (9.0-12.0) SEC INR (0.9-1.2) Sodium (136-145) mmol/L Potassium (3.5-5.1) mmol/L Chloride (98-107) mmol/L Carbon Dioxide (21-32) mmol/L Anion Gap (7-13) mEq/L BUN (7-18) mg/dL Creatinine (0.55-1.02) mg/dL Est Cr Clr Drug Dosing mL/min Estimated GFR (MDRD) BUN/Creatinine Ratio (No establ ref range) Glucose (70-99) mg/dL Lactic Acid 1.5 (0.4-2.0) mmol/L Calcium (8.5-10.1) mg/dL Phosphorus (2.6-4.7) mg/dL Magnesium (1.8-2.4) mg/dL Total Bilirubin (0.2-1.0) mg/dL AST (15-37) U/L ALT (14-59) U/L Alkaline Phosphatase (46-116) U/L C-Reactive Protein (0.0-0.9) mg/dL B-Natriuretic Peptide (0-100) pg/ml Total Protein (6.4-8.2) g/dL Albumin (3.4-5.0) g/dL Globulin Albumin/Globulin Ratio Amylase (25-115) U/L Lipase (73-393) U/L TSH, Ultra Sensitive (0.36-3.74) uIU/mL Urine Color Yellow (YELLOW) Urine Appearance Turbid (CLEAR) Urine pH 5.5 (5.0-9.0) Ur Specific [place] 1.015 (1.005-1.030) Urine Protein 30 H (NEGATIVE) Urine Glucose (UA) Negative (NEGATIVE) Urine Ketones Negative (NEGATIVE) Urine Occult Blood Large H (NEGATIVE) Urine Nitrite Positive H (NEGATIVE) Urine Bilirubin Negative (NEGATIVE) Urine Urobilinogen 0.2 (0.2-1.0) mg/dL Ur Leukocyte Esterase Small H (NEGATIVE) Urine RBC 50-75 H (0-5) /HPF Urine WBC >100 H (0-5/HPF) /HPF Ur Epithelial Cells Few (NOT SEEN) /HPF Amorphous Sediment Moderate H (NOT SEEN) /HPF Urine Bacteria Many H (0-FEW/HPF) /HPF Urine Mucus Moderate H (NOT SEEN) /LPF Meds: Medications Generic Name Dose Route Start Last Admin Trade Name Freq PRN Reason Stop Dose Admin Sodium Chloride 1,000 mls @ 999 mls/hr 08/28/21 15:47 08/28/21 16:25 Normal Saline IV 08/28/21 16:47 500 mls/hr .BOLUS ONE Administration Ceftriaxone Sodium 2 gm/ 100 mls @ 200 mls/hr 08/28/21 16:14 08/28/21 16:27 Sodium Chloride IV 08/28/21 16:43 200 mls/hr ONETIME ONE Administration Sodium Chloride 10 ml 08/28/21 13:41 08/28/21 16:25 Sodium Chloride 0.9% 10 Ml Syringe FLUSH 10 ml ASDIRECTED PRN Administration Keep Vein Open - Re-Assessments/Exams Free Text/Narrative Re-Assessment/Exam: 08/28/21 16:30 I discussed the pts condition with Dr. Mcmullen and he will admit the pt for inpatient treatment. The pt adn family are in agreement with admission Departure - Departure Time of Disposition: 16:32 (Dr. Mcmullen) Disposition: Admitted As Inpatient 67 Condition: Fair Clinical Impression: Weakness UTI (urinary tract infection) Qualifiers: Urinary tract infection type: site unspecified Hematuria presence: without hematuria Qualified Code(s): N39.0 - Urinary tract infection, site not specified - Discharge Information *PRESCRIPTION DRUG MONITORING PROGRAM REVIEWED*: Not Applicable *COPY OF PRESCRIPTION DRUG MONITORING REPORT IN PATIENT REYNALDO: Not Applicable Sepsis Event Note (ED) - Focused Exam Vital Signs: Vital Signs Temp Pulse Resp BP Pulse Ox 08/28/21 13:03 98.5 F 90 14 140/85 95 - My Orders Last 24 Hours: My Active Orders 08/28/21 13:41 Peripheral IV Care [RC] . DIRECTED Sodium Chloride 0.9% [Saline Flush] 10 ml FLUSH ASDIRECTED PRN Peripheral IV Insertion Adult [OM.PC] Routine 08/28/21 15:35 CULTURE URINE [RM] Stat 08/28/21 15:47 Sodium Chloride 0.9% [Normal Saline] 1,000 ml IV .BOLUS 08/28/21 16:14 cefTRIAXone [Rocephin] 2 gm Sodium Chloride 0.9% [Normal Saline] 100 ml IV ONETIME - Assessment/Plan Last 24 Hours: My Active Orders 08/28/21 13:41 Peripheral IV Care [RC] . DIRECTED Sodium Chloride 0.9% [Saline Flush] 10 ml FLUSH ASDIRECTED PRN Peripheral IV Insertion Adult [OM.PC] Routine 08/28/21 15:35 CULTURE URINE [RM] Stat 08/28/21 15:47 Sodium Chloride 0.9% [Normal Saline] 1,000 ml IV .BOLUS 08/28/21 16:14 cefTRIAXone [Rocephin] 2 gm Sodium Chloride 0.9% [Normal Saline] 100 ml IV ONETIME
--- NOTE | 2021-08-28 14:50 | CR ---
PROCEDURE INFORMATION: Exam: XR Chest Exam date and time: 08/28/2021 2:21 PM Age: 81 years old Clinical indication: Other: Weakness, chf HX, retaining fluid TECHNIQUE: Imaging protocol: XR of the chest. Views: 1 view. COMPARISON: No relevant prior studies available. FINDINGS: Lungs: There is mild increase in interstitial markings within the lungs. This is nonspecific. Patchy density in the left lower lobe likely represents atelectasis due to the presence of pleural fluid. Pneumonia is also possible but less likely. Pleural spaces: Small left pleural effusion is present on the left. There is no pneumothorax. Heart/Mediastinum: Unremarkable. No cardiomegaly. Bones/joints: Unremarkable. IMPRESSION: 1. Small left pleural effusion with probable left basilar atelectasis. Pneumonia also possible but less likely. No pulmonary edema identified.
[2021-08-28 15:05] LABS: ANION GAP 14.5 mEq/L (7-13)
[2021-08-28] MEDS ORDERED: Sodium Chloride 0.9% 1,000 ML IV ONE (15:47)
[2021-08-28] MEDS ORDERED: cefTRIAXone 2 GM in Sodium Chloride 0.9% 100 ML IV ONE (16:14)
[2021-08-28] MEDS ORDERED: Acetaminophen 325 MG Tab PO PRN ×2 (18:18→18:25)
[2021-08-28] MEDS ORDERED: Docusate Sodium 100 MG Cap PO PRN (18:18)
[2021-08-28] MEDS ORDERED: Ondansetron 4 MG/2 ML SDV IVPUSH PRN (18:18)
[2021-08-28] MEDS ORDERED: Polyethylene Glycol 3350 Powder 17 GM Packet PO PRN (18:18)
[2021-08-28] MEDS ORDERED: Bisacodyl 5 MG Tab PO PRN (18:18)
[2021-08-28] MEDS ORDERED: traMADol 50 MG Tab PO PRN (18:25)
[2021-08-28] MEDS ORDERED: FLUOROMETHOLONE 0.1% EYEBOTH SCH (18:30)
[2021-08-28] MEDS ORDERED: PRED MOXI KETOR EYEBOTH SCH (18:30)
--- NOTE | 2021-08-28 18:38 | PCM.HP ---
H&P History of Present Illness - General Date of Service: 08/28/21 Admit Problem/Dx: Admission Diagnosis/Problem Admission Diagnosis/Problem UTI (urinary tract infection), uncomplicated Source of Information: Patient, Other (ER) - History of Present Illness Initial Comments - Free Text/Narative: 81 y/o F c/o weakness, frequent falls, cervical neck pn x 2 months. Pt states that she had a uti 2 months ago and since then her condition has deteriorated. She reports that after her uti she went to a chiropractor for neck pain and after her adjustment she has barely been able to walk and has increased falls. An MRI was done a week ago on her cervical spine which showed significant degenerative changes but reportedly nothing surgical. She has since developed weakness in her lower legs and is no longer able to ambulate around the house. She is on Pradaxa and has multiple bruises from falls. Denies hitting her head and LOC. Denies fever, cough, chills, drugs, eoth. Neck Pain Score (Numeric/FACES): 0 - Related Data Allergies/Adverse Reactions: Allergies Allergy/AdvReac Type Severity Reaction Status Date / Time milk Allergy Diarrhea Verified 08/28/21 18:14 cerivastatin [From Baycol] AdvReac Intermediate Other Verified 08/28/21 13:16 alendronate sodium AdvReac Other Verified 08/28/21 13:16 [From Fosamax] meperidine [From Demerol] AdvReac Nausea and Verified 08/28/21 13:16 Vomiting NSAIDS (Non-Steroidal AdvReac Other Verified 08/28/21 13:16 Anti-Inflamma oxycodone AdvReac Nausea and Verified 08/28/21 13:16 Vomiting Lepnnos-Zci-Wea Reductase AdvReac Muscle Verified 08/28/21 13:16 Inhibitor Aches sugars Allergy Diarrhea Uncoded 08/28/21 18:15 Home Medications: Home Meds Acetaminophen/Diphenhydramine [Tylenol Pm Ex-Strength Caplet] 1 tab PO DAILY PRN 08/07/18 [History] Carbidopa/Levodopa [Carbidopa-Levo 25-100 MG ODT] 25 - 100 mg PO TID 08/07/18 [History] Cholecalciferol (Vitamin D3) [Vitamin D3] 5,000 units PO DAILY 08/07/18 [History] Dabigatran [Pradaxa] 150 mg PO BID 08/07/18 [History] Levothyroxine 175 mcg PO ACBREAKFAST 08/07/18 [History] Losartan [Cozaar] 50 mg PO DAILY 08/07/18 [History] Metoprolol Succinate [Toprol XL 100mg] 150 mg PO .MORNING 08/07/18 [History] Sodium Bicarbonate 325 mg PO BID 08/07/18 [History] Vit C/E/Zn/Coppr/Lutein/Zeaxan [Preservision Areds 2 Softgel] 1 cap PO BID 08/07/18 [History] calcitrioL [Calcitriol] 0.75 mcg PO DAILY 08/07/18 [History] Acetaminophen [Tylenol] 650 mg PO Q4H PRN tablet 08/21/18 [Rx] Amitriptyline [Elavil] 5 mg PO BEDTIME 09/06/20 [History] Aspirin [Halfprin] 81 mg PO DAILY 09/06/20 [History] Calcitonin,Henderson,Synthetic [Calcitonin-Henderson] 1 spray MARINE ASDIRECTED 09/06/20 [History] Cyanocobalamin (Vitamin B-12) [Vitamin B-12] 1,000 mcg PO DAILY 09/06/20 [Histo ry] Famotidine 20 mg PO DAILY 09/06/20 [History] Fluorometholone [Fluorometholone 0.1% Ophth Susp] 1 drop EYEBOTH ASDIRECTED 09/06/20 [History] Furosemide [Lasix] 10 mg PO DAILY 09/06/20 [History] Tfsc-Yzpb-Ilsag [Cataract Opthalmic Solution] 1 drop EYEBOTH ASDIRECTED 09/06/20 [History] allopurinoL [Zyloprim] 100 mg PO DAILY 09/06/20 [History] amLODIPine [Norvasc] 5 mg PO DAILY 09/06/20 [History] metOLazone [Metolazone] 5 mg PO ASDIRECTED 09/06/20 [History] tiZANidine [Zanaflex] 4 mg PO TID PRN 09/06/20 [History] Metoprolol Succinate 100 mg PO BEDTIME 08/28/21 [History] traMADol [Ultram] 50 mg PO Q6H PRN 08/28/21 [History] Past Medical History HEENT History: Reports: Cataract, Impaired Vision Other HEENT History: CORRECTIVE LENS. 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 Hip surgery Neurological History: Reports: Neuropathy, Peripheral, Parkinson's Psychiatric History: Reports: None Endocrine/Metabolic History: Reports: Hypothyroidism, Obesity/BMI 30+ Hematologic History: Reports: B12 Deficiency, Blood Transfusion(s) Immunologic History: Reports: None Oncologic (Cancer) History: Reports: None Dermatologic History: Reports: None - Infectious Disease History Infectious Disease History: Reports: Chicken Pox, Measles, Mumps, Shingles - Past Surgical History Head Surgeries/Procedures: Reports: None HEENT Surgical History: Reports: Cataract Surgery, Oral Surgery, Other (See Below) Other HEENT Surgeries/Procedures: UPPER PARTIAL Cardiovascular Surgical History: Reports: Coronary Artery Stent Respiratory Surgical History: Reports: None GI Surgical History: Reports: Appendectomy, Bariatric Procedure, Cholecys tectomy, Colonoscopy Female Surgical History: Reports: Breast Biopsy, D&C, Hysterectomy, Salpingo- Oophorectomy Endocrine Surgical History: Reports: None Neurological Surgical History: Reports: None Musculoskeletal Surgical History: Reports: Hip Replacement, Knee Replacement, Other (See Below) Other Musculoskeletal Surgeries/Procedures:: FOOT SURGERY. MUSCLE BIOPSY. bi lteral knee replacement. right hip replacement Oncologic Surgical History: Reports: None Dermatological Surgical History: Reports: None Social & Family History - Family History Family Medical History: No Pertinent Family History - Tobacco Use Tobacco Use Status *Q: Never Tobacco User - Caffeine Use Caffeine Use: Reports: Coffee Other Caffeine Use: AVERAGE OF 2-3 CUPS DAILY - Recreational Drug Use Recreational Drug Use: No - Living Situation & Occupation Living situation: Reports: Alone, Assisted Living Occupation: Retired H&P Review of Systems - Review of Systems: Review Of Systems: Comprehensive ROS is negative, except as noted in HPI. General: Denies: Fever, Chills Pulmonary: Denies: Shortness of Breath Cardiovascular: Denies: Chest Pain Gastrointestinal: Denies: Abdominal Pain Genitourinary: Reports: Dysuria Musculoskeletal: Reports: Neck Pain Skin: Denies: Cyanosis Psychiatric: Denies: Confusion Exam - Exam Exam: See Below - Vital Signs Vital Signs: Last Vital Signs Temp 98.5 F 08/28/21 13:03 Pulse 90 08/28/21 13:03 Resp 14 08/28/21 13:03 BP 140/85 08/28/21 13:03 Pulse Ox 95 08/28/21 13:03 Weight: 187 lb 9.6 oz - Exam Quality Assessment: No: Supplemental Oxygen General: Alert, Oriented HEENT: EOMI Neck: Other (soft brace) Lungs: Clear to Auscultation Cardiovascular: Irregular Rhythm. No: Regular Rate, Regular Rhythm GI/Abdominal Exam: Soft Extremities: Other (scars over B knees ) Skin: Warm Neurological: Cranial Nerves Intact Neuro Extensive - Mental Status: Alert, Oriented x3 Neuro Extensive - Motor, Sensory, Reflexes: CN II-XII Intact Psychiatric: Alert, Normal Affect - Patient Data Lab Results Last 24 hrs: Laboratory Results - last 24 hr 08/28/21 08/28/21 08/28/21 Range/Units 14:17 14:17 15:18 WBC 6.8 (5.0-10.0) 10^3/uL RBC 3.64 L (4.2-5.4) 10^6/uL Hgb 11.5 L (12.0-16.0) g/dL Hct 34.8 L (37.0-47.0) % MCV 95.6 (80-100) fL MCH 31.6 (27.0-34.0) pg MCHC 33.0 (33.0-35.0) g/dL Plt Count 140 L D (150-450) 10^3/uL Neut % (Auto) 79.7 H (42.2-75.2) % Lymph % (Auto) 5.1 L (20.5-50.1) % [place] % (Auto) 15.0 H (2-8) % Eos % (Auto) 0.1 L (1.0-3.0) % Baso % (Auto) 0.1 (0.0-1.0) % PT 12.0 (9.0-12.0) SEC INR 1.2 (0.9-1.2) Sodium 140 (136-145) mmol/L Potassium 4.5 (3.5-5.1) mmol/L Chloride 105 (98-107) mmol/L Carbon Dioxide 25 (21-32) mmol/L Anion Gap 14.5 H (7-13) mEq/L BUN 44 H (7-18) mg/dL Creatinine 1.86 H (0.55-1.02) mg/dL Est Cr Clr Drug Dosing 25.21 mL/min Estimated GFR (MDRD) 26 BUN/Creatinine Ratio 23.7 (No establ ref range) Glucose 92 (70-99) mg/dL Lactic Acid (0.4-2.0) mmol/L Calcium 8.1 L (8.5-10.1) mg/dL Phosphorus 3.8 (2.6-4.7) mg/dL Magnesium 1.8 (1.8-2.4) mg/dL Total Bilirubin 0.9 (0.2-1.0) mg/dL AST 17 (15-37) U/L ALT 7 L (14-59) U/L Alkaline Phosphatase 173 H (46-116) U/L C-Reactive Protein 24.4 H (0.0-0.9) mg/dL B-Natriuretic Peptide 216 H (0-100) pg/ml Total Protein 4.7 L (6.4-8.2) g/dL Albumin 1.9 L (3.4-5.0) g/dL Globulin 2.8 Albumin/Globulin Ratio 0.68 Amylase 15 L (25-115) U/L Lipase 38 L (73-393) U/L TSH, Ultra Sensitive 3.08 (0.36-3.74) uIU/mL Urine Color (YELLOW) Urine Appearance (CLEAR) Urine pH (5.0-9.0) Ur Specific [place] (1.005-1.030) Urine Protein (NEGATIVE) Urine Glucose (UA) (NEGATIVE) Urine Ketones (NEGATIVE) Urine Occult Blood (NEGATIVE) Urine Nitrite (NEGATIVE) Urine Bilirubin (NEGATIVE) Urine Urobilinogen (0.2-1.0) mg/dL Ur Leukocyte Esterase (NEGATIVE) Urine RBC (0-5) /HPF Urine WBC (0-5/HPF) /HPF Ur Epithelial Cells (NOT SEEN) /HPF Amorphous Sediment (NOT SEEN) /HPF Urine Bacteria (0-FEW/HPF) /HPF Urine Mucus (NOT SEEN) /LPF SARS CoV-2 RNA Rapid LEXUS (NEGATIVE) 08/28/21 08/28/21 08/28/21 Range/Units 15:18 15:35 16:17 WBC (5.0-10.0) 10^3/uL RBC (4.2-5.4) 10^6/uL Hgb (12.0-16.0) g/dL Hct (37.0-47.0) % MCV (80-100) fL MCH (27.0-34.0) pg MCHC (33.0-35.0) g/dL Plt Count (150-450) 10^3/uL Neut % (Auto) (42.2-75.2) % Lymph % (Auto) (20.5-50.1) % [place] % (Auto) (2-8) % Eos % (Auto) (1.0-3.0) % Baso % (Auto) (0.0-1.0) % PT (9.0-12.0) SEC INR (0.9-1.2) Sodium (136-145) mmol/L Potassium (3.5-5.1) mmol/L Chloride (98-107) mmol/L Carbon Dioxide (21-32) mmol/L Anion Gap (7-13) mEq/L BUN (7-18) mg/dL Creatinine (0.55-1.02) mg/dL Est Cr Clr Drug Dosing mL/min Estimated GFR (MDRD) BUN/Creatinine Ratio (No establ ref range) Glucose (70-99) mg/dL Lactic Acid 1.5 (0.4-2.0) mmol/L Calcium (8.5-10.1) mg/dL Phosphorus (2.6-4.7) mg/dL Magnesium (1.8-2.4) mg/dL Total Bilirubin (0.2-1.0) mg/dL AST (15-37) U/L ALT (14-59) U/L Alkaline Phosphatase (46-116) U/L C-Reactive Protein (0.0-0.9) mg/dL B-Natriuretic Peptide (0-100) pg/ml Total Protein (6.4-8.2) g/dL Albumin (3.4-5.0) g/dL Globulin Albumin/Globulin Ratio Amylase (25-115) U/L Lipase (73-393) U/L TSH, Ultra Sensitive (0.36-3.74) uIU/mL Urine Color Yellow (YELLOW) Urine Appearance Turbid (CLEAR) Urine pH 5.5 (5.0-9.0) Ur Specific [place] 1.015 (1.005-1.030) Urine Protein 30 H (NEGATIVE) Urine Glucose (UA) Negative (NEGATIVE) Urine Ketones Negative (NEGATIVE) Urine Occult Blood Large H (NEGATIVE) Urine Nitrite Positive H (NEGATIVE) Urine Bilirubin Negative (NEGATIVE) Urine Urobilinogen 0.2 (0.2-1.0) mg/dL Ur Leukocyte Esterase Small H (NEGATIVE) Urine RBC 50-75 H (0-5) /HPF Urine WBC >100 H (0-5/HPF) /HPF Ur Epithelial Cells Few (NOT SEEN) /HPF Amorphous Sediment Moderate H (NOT SEEN) /HPF Urine Bacteria Many H (0-FEW/HPF) /HPF Urine Mucus Moderate H (NOT SEEN) /LPF SARS CoV-2 RNA Rapid LEXUS Negative (NEGATIVE) Result Diagrams: 08/28/21 14:17 08/28/21 14:17 Problem List Initiated/Reviewed/Updated: Yes Orders Last 24hrs: Active Orders 24 hr Category Date Time Status Admission Diagnosis [ADT] Stat ADT 08/28/21 16:33 Ordered Admission Status [Patient Status] [ADT] Routine ADT 08/28/21 16:33 Active Admission Status [Patient Status] [ADT] Routine ADT 08/28/21 17:00 Active Patient Status [ADT] Stat ADT 08/28/21 16:49 Active Oxygen Therapy [RC] PRN Care 08/28/21 18:18 Ordered Peripheral IV Care [RC] . DIRECTED Care 08/28/21 13:41 Active VTE/DVT Education [RC] PER UNIT ROUTINE Care 08/28/21 18:18 Ordered Vital Signs [RC] Q8H Care 08/28/21 18:18 Ordered OT Evaluation and Treatment [CONS] Routine Cons 08/28/21 18:18 Ordered PT Evaluation and Treatment [CONS] Routine Cons 08/28/21 18:18 Ordered Heart Healthy Diet [DIET] Diet 08/29/21 Breakfast Ordered BASIC METABOLIC PANEL,BMP [CHEM] AM Lab 08/29/21 05:11 Ordered CULTURE URINE [RM] Stat Lab 08/28/21 15:35 Received Acetaminophen [TylenoL] Med 08/28/21 18:18 Ordered 650 mg PO Q4H PRN Acetaminophen [TylenoL] Med 08/28/21 18:25 Ordered 650 mg PO Q4H PRN Acetaminophen/Diphenhydramine [Tylenol Pm Ex-Strength Med 08/28/21 18:25 Ordered Caplet] 1 tab PO DAILY PRN Amitriptyline [Elavil] Med 08/28/21 21:00 Ordered 5 mg PO BEDTIME Aspirin [Halfprin] Med 08/29/21 09:00 Ordered 81 mg PO DAILY Calcitonin ([place]end[place]) [Miacalcin Nasal [place]] Med 08/28/21 18:30 Ordered 1 spray MARINE ASDIRECTED Carbidopa/Levodopa [Carbidopa-Levo 25-100 MG ODT] Med 08/28/21 21:00 Ordered 25 - 100 mg PO TID Cholecalciferol (Vitamin D3) [Vitamin D3] Med 08/29/21 09:00 Ordered 5,000 units PO DAILY Cyanocobalamin (Vitamin B12) [Vitamin B12] Med 08/29/21 09:00 Ordered 1,000 mcg PO DAILY Dabigatran Med 08/28/21 21:00 Ordered 150 mg PO BID Docusate Sodium [Colace] Med 08/28/21 18:18 Ordered 100 mg PO BID PRN Famotidine [Pepcid] Med 08/29/21 09:00 Ordered 20 mg PO DAILY Fluorometholone Med 08/28/21 18:30 Ordered 1 drop EYEBOTH ASDIRECTED Furosemide [Lasix] Med 08/29/21 09:00 Ordered 10 mg PO DAILY Levothyroxine [Levothyroxine] Med 08/29/21 06:00 Ordered 175 mcg PO ACBREAKFAST Losartan [Cozaar] Med 08/29/21 09:00 Ordered 50 mg PO DAILY Metoprolol Succinate [Metoprolol Succinate] Med 08/28/21 21:00 Ordered 100 mg PO BEDTIME Metoprolol Succinate [Toprol XL 100mg] Med 08/28/21 18:30 Ordered 150 mg PO .MORNING Ondansetron [Zofran] Med 08/28/21 18:18 Ordered 4 mg IVPUSH Q6H PRN Mftb-Hqff-Visks [Cataract Opthalmic Solution] Med 08/28/21 18:30 Ordered 1 drop EYEBOTH ASDIRECTED Sodium Bicarbonate Med 08/28/21 21:00 Ordered 325 mg PO BID Sodium Chloride 0.9% [Saline Flush] Med 08/28/21 13:41 Active 10 ml FLUSH ASDIRECTED PRN Vit C/E/Zn/Coppr/Lutein/Zeaxan [Preservision Areds 2 Med 08/28/21 21:00 Ordered Softgel] 1 cap PO BID allopurinoL [Zyloprim] Med 08/29/21 09:00 Ordered 100 mg PO DAILY amLODIPine [Norvasc] Med 08/29/21 09:00 Ordered 5 mg PO DAILY bisacodyL [Dulcolax] Med 08/28/21 18:18 Ordered 5 mg PO DAILY PRN calcitrioL [Rocaltrol] Med 08/29/21 09:00 Ordered 0.75 mcg PO DAILY polyethylene glycoL 3350 [MiraLAX] Med 08/28/21 18:18 Ordered 17 gm PO DAILY PRN tiZANidine [Zanaflex] Med 08/28/21 18:25 Ordered 4 mg PO TID PRN traMADol [Ultram] Med 08/28/21 18:25 Ordered 50 mg PO Q6H PRN Peripheral IV Insertion Adult [OM.PC] Routine Oth 08/28/21 13:41 Ordered Resuscitation Status Routine Resus Stat 08/28/21 18:18 Ordered Medication Orders Acetaminophen (Acetaminophen 325 Mg Tab) 650 mg PO Q4H PRN PRN Reason: Pain (Mild 1-3)/fever Acetaminophen (Acetaminophen 325 Mg Tab) 650 mg PO Q4H PRN PRN Reason: Pain (mild 1-3) Allopurinol (Allopurinol 100 Mg Tab) 100 mg PO DAILY DEYVI Amitriptyline HCl (Amitriptyline 10 Mg Tab) 5 mg PO BEDTIME DEYVI Amlodipine Besylate (Amlodipine 5 Mg Tab) 5 mg PO DAILY DEYVI Aspirin (Aspirin 81 Mg Tab.Ec) 81 mg PO DAILY DEYVI Bisacodyl (Bisacodyl 5 Mg Tab) 5 mg PO DAILY PRN PRN Reason: Constipation Calcitonin [place] (Calcitonin ([place]) Nasal [place] 3.7 Ml Bottle) ml MARINE ASDIRECTED DEYVI Calcitriol (Calcitriol 0.25 Mcg Cap) 0.75 mcg PO DAILY DEYVI Cholecalciferol (Cholecalciferol (Vitamin D3) 25 Mcg Tab) mcg PO DAILY DEYVI Cyanocobalamin (Cyanocobalamin (Vitamin B12) 1,000 Mcg Tab) 1,000 mcg PO DAILY DEYVI Docusate Sodium (Docusate Sodium 100 Mg Cap) 100 mg PO BID PRN PRN Reason: Constipation Famotidine (Famotidine 20 Mg Tab) 20 mg PO DAILY DEYVI Furosemide (Furosemide 20 Mg Tab) 10 mg PO DAILY DEYVI Non-Formulary Medication (Acetaminophen/Diphenhydramine [Tylenol Pm Ex-Strength Caplet]) 1 tab PO DAILY PRN PRN Reason: Insomnia Non-Formulary Medication (Carbidopa/Levodopa [Carbidopa-Levo 25-100 Mg Odt]) 25 - 100 mg PO TID DEYVI Non-Formulary Medication (Dabigatran) 150 mg PO BID DEYVI Non-Formulary Medication (Fluorometholone) 1 drop EYEBOTH ASDIRECTED [facility] Ondansetron HCl (Ondansetron 4 Mg/2 Ml Sdv) 4 mg IVPUSH Q6H PRN PRN Reason: Nausea/Vomiting Polyethylene Glycol (Polyethylene Glycol 3350 Powder 17 Gm Packet) 17 gm PO DAILY PRN PRN Reason: Constipation Sodium Chloride (Sodium Chloride 0.9% 10 Ml Syringe) 10 ml FLUSH ASDIRECTED PRN PRN Reason: Keep Vein Open Last Admin: 08/28/21 16:25 Dose: 10 ml Documented by: GAEL Assessment/Plan Comment:: Difficulty ambulating: multi factorial, arthritis, Parkinson and ? UTI: for pt/OT UTI: Ceftriaxone CKD CAD, ALfib: continue anticoagulation, [place]:Continue with home medications DVT prophylaxis : already anticoagulated, DNR/DNI per pt
[2021-08-28] MEDS ORDERED: cefTRIAXone 1 GM Vial IM SCH (20:00)
[2021-08-28] MEDS ORDERED: DABIGATRAN 150 MG PO SCH (21:00)
[2021-08-28] MEDS: Amitriptyline 10 MG Tab PO SCH (21:17)
[2021-08-28] MEDS: Lutein/Minerals/Vit A,C & E Tab PO SCH (21:21)
[2021-08-28] MEDS: Carbidopa/Levodopa 25-100 MG Tab PO SCH (21:21)
[2021-08-28] MEDS: Sodium Bicarbonate 650 MG Tab PO SCH (21:21)
[2021-08-28] MEDS: Metoprolol Succinate 50 MG Tab.ER PO SCH (21:21)
[2021-08-29] MEDS: Levothyroxine 100 MCG Tab PO SCH (04:59)
[2021-08-29] MEDS: Levothyroxine 75 MCG Tab PO SCH (04:59)
[2021-08-29] MEDS ORDERED: Non-Formulary Medication 1 Each (Levothyroxine [Levothyroxine] 175 MCG Tablet) PO SCH (06:00)
[2021-08-29] MEDS: Metoprolol Succinate 50 MG Tab.ER PO SCH ×2 (08:20→20:42)
[2021-08-29] MEDS: Dabigatran 75 MG Cap PO SCH ×2 (08:21→20:41)
[2021-08-29] MEDS: Furosemide 20 MG Tab PO SCH (08:21)
[2021-08-29] MEDS: Losartan 50 MG Tab PO SCH (08:21)
[2021-08-29] MEDS: Sodium Bicarbonate 650 MG Tab PO SCH ×2 (08:22→20:41)
[2021-08-29] MEDS: amLODIPine 5 MG Tab PO SCH (08:22)
[2021-08-29] MEDS: Cholecalciferol (Vitamin D3) 25 MCG Tab PO SCH (08:22)
[2021-08-29] MEDS: Famotidine 20 MG Tab PO SCH (08:23)
[2021-08-29] MEDS: Calcitriol 0.25 MCG Cap PO SCH (08:23)
[2021-08-29] MEDS: Carbidopa/Levodopa 25-100 MG Tab PO SCH ×3 (08:23→21:30)
[2021-08-29] MEDS: Cyanocobalamin (Vitamin B12) 1,000 MCG Tab PO SCH (08:23)
[2021-08-29] MEDS: Lutein/Minerals/Vit A,C & E Tab PO SCH ×2 (08:23→20:40)
[2021-08-29] MEDS: Aspirin 81 MG Tab.EC PO SCH (08:23)
[2021-08-29] MEDS: Calcitonin (Salmon) Nasal Spray 3.7 ML Bottle NAS SCH (08:29)
[2021-08-29] MEDS: Allopurinol 100 MG Tab PO SCH (08:53)
--- NOTE | 2021-08-29 10:47 | PCM.PN ---
- General Info Date of Service: 08/29/21 Functional Status: Reports: Pain Controlled, Tolerating Diet - Review of Systems General: Denies: Fever Pulmonary: Denies: Shortness of Breath Gastrointestinal: Denies: Abdominal Pain Genitourinary: Denies: Dysuria Musculoskeletal: Reports: Neck Pain Neurological: Reports: No Symptoms Psychiatric: Reports: No Symptoms - Patient Data Vitals - Most Recent: Last Vital Signs Temp 98.5 F 08/29/21 07:58 Pulse 92 08/29/21 08:20 Resp 16 08/29/21 07:58 BP 118/56 L 08/29/21 08:22 Pulse Ox 98 08/29/21 07:58 Weight - Most Recent: 187 lb 9.6 oz I&O - Last 24 Hours: Intake & Output 08/28/21 08/29/21 08/29/21 22:59 06:59 14:59 Intake Total 400 500 240 Balance 400 500 240 Lab Results Last 24 Hours: Laboratory Results - last 24 hr 08/28/21 08/28/21 08/28/21 Range/Units 14:17 14:17 15:18 WBC 6.8 (5.0-10.0) 10^3/uL RBC 3.64 L (4.2-5.4) 10^6/uL Hgb 11.5 L (12.0-16.0) g/dL Hct 34.8 L (37.0-47.0) % MCV 95.6 (80-100) fL MCH 31.6 (27.0-34.0) pg MCHC 33.0 (33.0-35.0) g/dL Plt Count 140 L D (150-450) 10^3/uL Neut % (Auto) 79.7 H (42.2-75.2) % Lymph % (Auto) 5.1 L (20.5-50.1) % [place] % (Auto) 15.0 H (2-8) % Eos % (Auto) 0.1 L (1.0-3.0) % Baso % (Auto) 0.1 (0.0-1.0) % PT 12.0 (9.0-12.0) SEC INR 1.2 (0.9-1.2) Sodium 140 (136-145) mmol/L Potassium 4.5 (3.5-5.1) mmol/L Chloride 105 (98-107) mmol/L Carbon Dioxide 25 (21-32) mmol/L Anion Gap 14.5 H (7-13) mEq/L BUN 44 H (7-18) mg/dL Creatinine 1.86 H (0.55-1.02) mg/dL Est Cr Clr Drug Dosing 25.21 mL/min Estimated GFR (MDRD) 26 BUN/Creatinine Ratio 23.7 (No establ ref range) Glucose 92 (70-99) mg/dL Lactic Acid (0.4-2.0) mmol/L Calcium 8.1 L (8.5-10.1) mg/dL Phosphorus 3.8 (2.6-4.7) mg/dL Magnesium 1.8 (1.8-2.4) mg/dL Total Bilirubin 0.9 (0.2-1.0) mg/dL AST 17 (15-37) U/L ALT 7 L (14-59) U/L Alkaline Phosphatase 173 H (46-116) U/L C-Reactive Protein 24.4 H (0.0-0.9) mg/dL B-Natriuretic Peptide 216 H (0-100) pg/ml Total Protein 4.7 L (6.4-8.2) g/dL Albumin 1.9 L (3.4-5.0) g/dL Globulin 2.8 Albumin/Globulin Ratio 0.68 Amylase 15 L (25-115) U/L Lipase 38 L (73-393) U/L TSH, Ultra Sensitive 3.08 (0.36-3.74) uIU/mL Urine Color (YELLOW) Urine Appearance (CLEAR) Urine pH (5.0-9.0) Ur Specific [place] (1.005-1.030) Urine Protein (NEGATIVE) Urine Glucose (UA) (NEGATIVE) Urine Ketones (NEGATIVE) Urine Occult Blood (NEGATIVE) Urine Nitrite (NEGATIVE) Urine Bilirubin (NEGATIVE) Urine Urobilinogen (0.2-1.0) mg/dL Ur Leukocyte Esterase (NEGATIVE) Urine RBC (0-5) /HPF Urine WBC (0-5/HPF) /HPF Ur Epithelial Cells (NOT SEEN) /HPF Amorphous Sediment (NOT SEEN) /HPF Urine Bacteria (0-FEW/HPF) /HPF Urine Mucus (NOT SEEN) /LPF SARS CoV-2 RNA Rapid LEXUS (NEGATIVE) 10/03/21 10/03/21 10/03/21 Range/Units 15:18 15:35 16:17 WBC (5.0-10.0) 10^3/uL RBC (4.2-5.4) 10^6/uL Hgb (12.0-16.0) g/dL Hct (37.0-47.0) % MCV (80-100) fL MCH (27.0-34.0) pg MCHC (33.0-35.0) g/dL Plt Count (150-450) 10^3/uL Neut % (Auto) (42.2-75.2) % Lymph % (Auto) (20.5-50.1) % [place] % (Auto) (2-8) % Eos % (Auto) (1.0-3.0) % Baso % (Auto) (0.0-1.0) % PT (9.0-12.0) SEC INR (0.9-1.2) Sodium (136-145) mmol/L Potassium (3.5-5.1) mmol/L Chloride (98-107) mmol/L Carbon Dioxide (21-32) mmol/L Anion Gap (7-13) mEq/L BUN (7-18) mg/dL Creatinine (0.55-1.02) mg/dL Est Cr Clr Drug Dosing mL/min Estimated GFR (MDRD) BUN/Creatinine Ratio (No establ ref range) Glucose (70-99) mg/dL Lactic Acid 1.5 (0.4-2.0) mmol/L Calcium (8.5-10.1) mg/dL Phosphorus (2.6-4.7) mg/dL Magnesium (1.8-2.4) mg/dL Total Bilirubin (0.2-1.0) mg/dL AST (15-37) U/L ALT (14-59) U/L Alkaline Phosphatase (46-116) U/L C-Reactive Protein (0.0-0.9) mg/dL B-Natriuretic Peptide (0-100) pg/ml Total Protein (6.4-8.2) g/dL Albumin (3.4-5.0) g/dL Globulin Albumin/Globulin Ratio Amylase (25-115) U/L Lipase (73-393) U/L TSH, Ultra Sensitive (0.36-3.74) uIU/mL Urine Color Yellow (YELLOW) Urine Appearance Turbid (CLEAR) Urine pH 5.5 (5.0-9.0) Ur Specific [place] 1.015 (1.005-1.030) Urine Protein 30 H (NEGATIVE) Urine Glucose (UA) Negative (NEGATIVE) Urine Ketones Negative (NEGATIVE) Urine Occult Blood Large H (NEGATIVE) Urine Nitrite Positive H (NEGATIVE) Urine Bilirubin Negative (NEGATIVE) Urine Urobilinogen 0.2 (0.2-1.0) mg/dL Ur Leukocyte Esterase Small H (NEGATIVE) Urine RBC 50-75 H (0-5) /HPF Urine WBC >100 H (0-5/HPF) /HPF Ur Epithelial Cells Few (NOT SEEN) /HPF Amorphous Sediment Moderate H (NOT SEEN) /HPF Urine Bacteria Many H (0-FEW/HPF) /HPF Urine Mucus Moderate H (NOT SEEN) /LPF SARS CoV-2 RNA Rapid LEXUS Negative (NEGATIVE) 08/29/21 Range/Units 05:35 WBC (5.0-10.0) 10^3/uL RBC (4.2-5.4) 10^6/uL Hgb (12.0-16.0) g/dL Hct (37.0-47.0) % MCV (80-100) fL MCH (27.0-34.0) pg MCHC (33.0-35.0) g/dL Plt Count (150-450) 10^3/uL Neut % (Auto) (42.2-75.2) % Lymph % (Auto) (20.5-50.1) % [place] % (Auto) (2-8) % Eos % (Auto) (1.0-3.0) % Baso % (Auto) (0.0-1.0) % PT (9.0-12.0) SEC INR (0.9-1.2) Sodium 141 (136-145) mmol/L Potassium 4.0 (3.5-5.1) mmol/L Chloride 106 (98-107) mmol/L Carbon Dioxide 28 (21-32) mmol/L Anion Gap 11.0 (7-13) mEq/L BUN 41 H (7-18) mg/dL Creatinine 1.81 H (0.55-1.02) mg/dL Est Cr Clr Drug Dosing 25.91 mL/min Estimated GFR (MDRD) 27 BUN/Creatinine Ratio (No establ ref range) Glucose 77 (70-99) mg/dL Lactic Acid (0.4-2.0) mmol/L Calcium 8.1 L (8.5-10.1) mg/dL Phosphorus (2.6-4.7) mg/dL Magnesium (1.8-2.4) mg/dL Total Bilirubin (0.2-1.0) mg/dL AST (15-37) U/L ALT (14-59) U/L Alkaline Phosphatase (46-116) U/L C-Reactive Protein (0.0-0.9) mg/dL B-Natriuretic Peptide (0-100) pg/ml Total Protein (6.4-8.2) g/dL Albumin (3.4-5.0) g/dL Globulin Albumin/Globulin Ratio Amylase (25-115) U/L Lipase (73-393) U/L TSH, Ultra Sensitive (0.36-3.74) uIU/mL Urine Color (YELLOW) Urine Appearance (CLEAR) Urine pH (5.0-9.0) Ur Specific [place] (1.005-1.030) Urine Protein (NEGATIVE) Urine Glucose (UA) (NEGATIVE) Urine Ketones (NEGATIVE) Urine Occult Blood (NEGATIVE) Urine Nitrite (NEGATIVE) Urine Bilirubin (NEGATIVE) Urine Urobilinogen (0.2-1.0) mg/dL Ur Leukocyte Esterase (NEGATIVE) Urine RBC (0-5) /HPF Urine WBC (0-5/HPF) /HPF Ur Epithelial Cells (NOT SEEN) /HPF Amorphous Sediment (NOT SEEN) /HPF Urine Bacteria (0-FEW/HPF) /HPF Urine Mucus (NOT SEEN) /LPF SARS CoV-2 RNA Rapid LEXUS (NEGATIVE) Ronnie Results Last 24 Hours: Microbiology 08/28/21 15:35 Urine Culture - Preliminary Urine, Clean Catch Med Orders - Current: Current Medications Acetaminophen (Acetaminophen 325 Mg Tab) 650 mg PO Q4H PRN PRN Reason: Pain (Mild 1-3)/fever Acetaminophen (Acetaminophen 500 Mg Tab) 500 mg PO BEDTIME PRN PRN Reason: Insomnia Allopurinol (Allopurinol 100 Mg Tab) 100 mg PO DAILY DEYVI Last Admin: 08/29/21 08:53 Dose: 100 mg Documented by: Amitriptyline HCl (Amitriptyline 10 Mg Tab) 5 mg PO BEDTIME [facility] Last Admin: 08/28/21 21:17 Dose: 5 mg Documented by: Amlodipine Besylate (Amlodipine 5 Mg Tab) 5 mg PO DAILY [facility] Last Admin: 08/29/21 08:22 Dose: 5 mg Documented by: Aspirin (Aspirin 81 Mg Tab.Ec) 81 mg PO DAILY [facility] Last Admin: 08/29/21 08:23 Dose: 81 mg Documented by: Bisacodyl (Bisacodyl 5 Mg Tab) 5 mg PO DAILY PRN PRN Reason: Constipation Calcitonin [place] (Calcitonin ([place]) Nasal [place] 3.7 Ml Bottle) 0 ml MARINE DAILY [facility] Last Admin: 08/29/21 08:29 Dose: Not Given Documented by: Calcitriol (Calcitriol 0.25 Mcg Cap) 0.75 mcg PO DAILY [facility] Last Admin: 08/29/21 08:23 Dose: 0.75 mcg Documented by: Carbidopa/Levodopa (Carbidopa/Levodopa 25-100 Mg Tab) 1 tab PO TID [facility] Last Admin: 08/29/21 08:23 Dose: 1 tab Documented by: Cholecalciferol (Cholecalciferol (Vitamin D3) 25 Mcg Tab) 125 mcg PO DAILY [facility] Last Admin: 08/29/21 08:22 Dose: 125 mcg Documented by: Cyanocobalamin (Cyanocobalamin (Vitamin B12) 1,000 Mcg Tab) 1,000 mcg PO DAILY [facility] Last Admin: 08/29/21 08:23 Dose: 1,000 mcg Documented by: Dabigatran (Dabigatran 75 Mg Cap) 75 mg PO BID [facility] Last Admin: 08/29/21 08:21 Dose: 75 mg Documented by: Diphenhydramine HCl (Diphenhydramine 25 Mg Tab) 25 mg PO BEDTIME PRN PRN Reason: Insomnia Docusate Sodium (Docusate Sodium 100 Mg Cap) 100 mg PO BID PRN PRN Reason: Constipation Famotidine (Famotidine 20 Mg Tab) 20 mg PO DAILY [facility] Last Admin: 08/29/21 08:23 Dose: 20 mg Documented by: Furosemide (Furosemide 20 Mg Tab) 10 mg PO DAILY [facility] Last Admin: 08/29/21 08:21 Dose: 10 mg Documented by: Ceftriaxone Sodium 1 gm/ (Sodium Chloride) 50 mls @ 100 mls/hr IV Q24H [facility] Levothyroxine Sodium (Levothyroxine 100 Mcg Tab) 100 mcg PO ACBREAKFAST [facility] Last Admin: 08/29/21 04:59 Dose: 100 mcg Documented by: Levothyroxine Sodium (Levothyroxine 75 Mcg Tab) 75 mcg PO ACBREAKFAST [facility] Last Admin: 08/29/21 04:59 Dose: 75 mcg Documented by: Losartan Potassium (Losartan 50 Mg Tab) 50 mg PO DAILY [facility] Last Admin: 08/29/21 08:21 Dose: 50 mg Documented by: Metoprolol Succinate (Metoprolol Succinate 50 Mg Tab.Er) 100 mg PO BEDTIME [facility] Last Admin: 08/28/21 21:21 Dose: 100 mg Documented by: Metoprolol Succinate (Metoprolol Succinate 50 Mg Tab.Er) 150 mg PO DAILY [facility] Last Admin: 08/29/21 08:20 Dose: 150 mg Documented by: Multivitamins/Minerals (Lutein/Minerals/Vit A,C & E Tab) 1 each PO BID [facility] Last Admin: 08/29/21 08:23 Dose: 1 each Documented by: Non-Formulary Medication (Tizanidine [Zanaflex]) 4 mg PO TID PRN PRN Reason: Muscle Spasm - Painful Ondansetron HCl (Ondansetron 4 Mg/2 Ml Sdv) 4 mg IVPUSH Q6H PRN PRN Reason: Nausea/Vomiting Polyethylene Glycol (Polyethylene Glycol 3350 Powder 17 Gm Packet) 17 gm PO DAILY PRN PRN Reason: Constipation Sodium Bicarbonate (Sodium Bicarbonate 650 Mg Tab) 325 mg PO BID [facility] Last Admin: 08/29/21 08:22 Dose: 325 mg Documented by: Sodium Chloride (Sodium Chloride 0.9% 10 Ml Syringe) 10 ml FLUSH ASDIRECTED PRN PRN Reason: Keep Vein Open Last Admin: 08/28/21 16:25 Dose: 10 ml Documented by: Tramadol HCl (Tramadol 50 Mg Tab) 50 mg PO Q6H PRN PRN Reason: Pain Discontinued Medications Acetaminophen (Acetaminophen 325 Mg Tab) 650 mg PO Q4H PRN PRN Reason: Pain (mild 1-3) Sodium Chloride (Normal Saline) 1,000 mls @ 999 mls/hr IV .BOLUS ONE Stop: 08/28/21 16:47 Last Admin: 08/28/21 16:25 Dose: 500 mls/hr Documented by: Ceftriaxone Sodium 2 gm/ (Sodium Chloride) 100 mls @ 200 mls/hr IV ONETIME ONE Stop: 08/28/21 16:43 Last Infusion: 08/28/21 17:38 Dose: Infused Documented by: Non-Formulary Medication (Dabigatran) 150 mg PO BID DEYVI - Exam Quality Assessment: No: Supplemental Oxygen General: Alert, Oriented Neck: Other (tenderness to lower cervical spine. ) Lungs: Clear to Auscultation Cardiovascular: Irregular Rhythm GI/Abdominal Exam: Soft Back Exam: Normal Inspection Extremities: Normal Inspection Skin: Warm, Dry Neurological: No New Focal Deficit Psy/Mental Status: Alert - Patient Data Lab Results Last 24 hrs: Laboratory Results - last 24 hr 08/28/21 08/28/21 08/28/21 Range/Units 14:17 14:17 15:18 WBC 6.8 (5.0-10.0) 10^3/uL RBC 3.64 L (4.2-5.4) 10^6/uL Hgb 11.5 L (12.0-16.0) g/dL Hct 34.8 L (37.0-47.0) % MCV 95.6 (80-100) fL MCH 31.6 (27.0-34.0) pg MCHC 33.0 (33.0-35.0) g/dL Plt Count 140 L D (150-450) 10^3/uL Neut % (Auto) 79.7 H (42.2-75.2) % Lymph % (Auto) 5.1 L (20.5-50.1) % [place] % (Auto) 15.0 H (2-8) % Eos % (Auto) 0.1 L (1.0-3.0) % Baso % (Auto) 0.1 (0.0-1.0) % PT 12.0 (9.0-12.0) SEC INR 1.2 (0.9-1.2) Sodium 140 (136-145) mmol/L Potassium 4.5 (3.5-5.1) mmol/L Chloride 105 (98-107) mmol/L Carbon Dioxide 25 (21-32) mmol/L Anion Gap 14.5 H (7-13) mEq/L BUN 44 H (7-18) mg/dL Creatinine 1.86 H (0.55-1.02) mg/dL Est Cr Clr Drug Dosing 25.21 mL/min Estimated GFR (MDRD) 26 BUN/Creatinine Ratio 23.7 (No establ ref range) Glucose 92 (70-99) mg/dL Lactic Acid (0.4-2.0) mmol/L Calcium 8.1 L (8.5-10.1) mg/dL Phosphorus 3.8 (2.6-4.7) mg/dL Magnesium 1.8 (1.8-2.4) mg/dL Total Bilirubin 0.9 (0.2-1.0) mg/dL AST 17 (15-37) U/L ALT 7 L (14-59) U/L Alkaline Phosphatase 173 H (46-116) U/L C-Reactive Protein 24.4 H (0.0-0.9) mg/dL B-Natriuretic Peptide 216 H (0-100) pg/ml Total Protein 4.7 L (6.4-8.2) g/dL Albumin 1.9 L (3.4-5.0) g/dL Globulin 2.8 Albumin/Globulin Ratio 0.68 Amylase 15 L (25-115) U/L Lipase 38 L (73-393) U/L TSH, Ultra Sensitive 3.08 (0.36-3.74) uIU/mL Urine Color (YELLOW) Urine Appearance (CLEAR) Urine pH (5.0-9.0) Ur Specific [place] (1.005-1.030) Urine Protein (NEGATIVE) Urine Glucose (UA) (NEGATIVE) Urine Ketones (NEGATIVE) Urine Occult Blood (NEGATIVE) Urine Nitrite (NEGATIVE) Urine Bilirubin (NEGATIVE) Urine Urobilinogen (0.2-1.0) mg/dL Ur Leukocyte Esterase (NEGATIVE) Urine RBC (0-5) /HPF Urine WBC (0-5/HPF) /HPF Ur Epithelial Cells (NOT SEEN) /HPF Amorphous Sediment (NOT SEEN) /HPF Urine Bacteria (0-FEW/HPF) /HPF Urine Mucus (NOT SEEN) /LPF SARS CoV-2 RNA Rapid LEXUS (NEGATIVE) 08/28/21 08/28/21 08/28/21 Range/Units 15:18 15:35 16:17 WBC (5.0-10.0) 10^3/uL RBC (4.2-5.4) 10^6/uL Hgb (12.0-16.0) g/dL Hct (37.0-47.0) % MCV (80-100) fL MCH (27.0-34.0) pg MCHC (33.0-35.0) g/dL Plt Count (150-450) 10^3/uL Neut % (Auto) (42.2-75.2) % Lymph % (Auto) (20.5-50.1) % [place] % (Auto) (2-8) % Eos % (Auto) (1.0-3.0) % Baso % (Auto) (0.0-1.0) % PT (9.0-12.0) SEC INR (0.9-1.2) Sodium (136-145) mmol/L Potassium (3.5-5.1) mmol/L Chloride (98-107) mmol/L Carbon Dioxide (21-32) mmol/L Anion Gap (7-13) mEq/L BUN (7-18) mg/dL Creatinine (0.55-1.02) mg/dL Est Cr Clr Drug Dosing mL/min Estimated GFR (MDRD) BUN/Creatinine Ratio (No establ ref range) Glucose (70-99) mg/dL Lactic Acid 1.5 (0.4-2.0) mmol/L Calcium (8.5-10.1) mg/dL Phosphorus (2.6-4.7) mg/dL Magnesium (1.8-2.4) mg/dL Total Bilirubin (0.2-1.0) mg/dL AST (15-37) U/L ALT (14-59) U/L Alkaline Phosphatase (46-116) U/L C-Reactive Protein (0.0-0.9) mg/dL B-Natriuretic Peptide (0-100) pg/ml Total Protein (6.4-8.2) g/dL Albumin (3.4-5.0) g/dL Globulin Albumin/Globulin Ratio Amylase (25-115) U/L Lipase (73-393) U/L TSH, Ultra Sensitive (0.36-3.74) uIU/mL Urine Color Yellow (YELLOW) Urine Appearance Turbid (CLEAR) Urine pH 5.5 (5.0-9.0) Ur Specific [place] 1.015 (1.005-1.030) Urine Protein 30 H (NEGATIVE) Urine Glucose (UA) Negative (NEGATIVE) Urine Ketones Negative (NEGATIVE) Urine Occult Blood Large H (NEGATIVE) Urine Nitrite Positive H (NEGATIVE) Urine Bilirubin Negative (NEGATIVE) Urine Urobilinogen 0.2 (0.2-1.0) mg/dL Ur Leukocyte Esterase Small H (NEGATIVE) Urine RBC 50-75 H (0-5) /HPF Urine WBC >100 H (0-5/HPF) /HPF Ur Epithelial Cells Few (NOT SEEN) /HPF Amorphous Sediment Moderate H (NOT SEEN) /HPF Urine Bacteria Many H (0-FEW/HPF) /HPF Urine Mucus Moderate H (NOT SEEN) /LPF SARS CoV-2 RNA Rapid LEXUS Negative (NEGATIVE) 08/29/21 Range/Units 05:35 WBC (5.0-10.0) 10^3/uL RBC (4.2-5.4) 10^6/uL Hgb (12.0-16.0) g/dL Hct (37.0-47.0) % MCV (80-100) fL MCH (27.0-34.0) pg MCHC (33.0-35.0) g/dL Plt Count (150-450) 10^3/uL Neut % (Auto) (42.2-75.2) % Lymph % (Auto) (20.5-50.1) % [place] % (Auto) (2-8) % Eos % (Auto) (1.0-3.0) % Baso % (Auto) (0.0-1.0) % PT (9.0-12.0) SEC INR (0.9-1.2) Sodium 141 (136-145) mmol/L Potassium 4.0 (3.5-5.1) mmol/L Chloride 106 (98-107) mmol/L Carbon Dioxide 28 (21-32) mmol/L Anion Gap 11.0 (7-13) mEq/L BUN 41 H (7-18) mg/dL Creatinine 1.81 H (0.55-1.02) mg/dL Est Cr Clr Drug Dosing 25.91 mL/min Estimated GFR (MDRD) 27 BUN/Creatinine Ratio (No establ ref range) Glucose 77 (70-99) mg/dL Lactic Acid (0.4-2.0) mmol/L Calcium 8.1 L (8.5-10.1) mg/dL Phosphorus (2.6-4.7) mg/dL Magnesium (1.8-2.4) mg/dL Total Bilirubin (0.2-1.0) mg/dL AST (15-37) U/L ALT (14-59) U/L Alkaline Phosphatase (46-116) U/L C-Reactive Protein (0.0-0.9) mg/dL B-Natriuretic Peptide (0-100) pg/ml Total Protein (6.4-8.2) g/dL Albumin (3.4-5.0) g/dL Globulin Albumin/Globulin Ratio Amylase (25-115) U/L Lipase (73-393) U/L TSH, Ultra Sensitive (0.36-3.74) uIU/mL Urine Color (YELLOW) Urine Appearance (CLEAR) Urine pH (5.0-9.0) Ur Specific [place] (1.005-1.030) Urine Protein (NEGATIVE) Urine Glucose (UA) (NEGATIVE) Urine Ketones (NEGATIVE) Urine Occult Blood (NEGATIVE) Urine Nitrite (NEGATIVE) Urine Bilirubin (NEGATIVE) Urine Urobilinogen (0.2-1.0) mg/dL Ur Leukocyte Esterase (NEGATIVE) Urine RBC (0-5) /HPF Urine WBC (0-5/HPF) /HPF Ur Epithelial Cells (NOT SEEN) /HPF Amorphous Sediment (NOT SEEN) /HPF Urine Bacteria (0-FEW/HPF) /HPF Urine Mucus (NOT SEEN) /LPF SARS CoV-2 RNA Rapid LEXUS (NEGATIVE) Result Diagrams: 08/28/21 14:17 08/29/21 05:35 Ronnie Results Last 24 hrs: Microbiology 08/28/21 15:35 Urine Culture - Preliminary Urine, Clean Catch Sepsis Event Note - Evaluation Sepsis Screening Result: No Definite Risk - Focused Exam Vital Signs: Vital Signs Temp Pulse Pulse Resp BP BP Pulse Ox 08/29/21 08:22 118/56 L 08/29/21 08:21 118/56 L 08/29/21 08:20 92 118/56 L 08/29/21 07:58 98.5 F 92 16 118/56 L 98 - Problem List Review Problem List Initiated/Reviewed/Updated: Yes - My Orders Last 24 Hours: My Active Orders 08/28/21 18:18 Oxygen Therapy [RC] PRN VTE/DVT Education [RC] Vital Signs [RC] 00,08,16 OT Evaluation and Treatment [CONS] Routine PT Evaluation and Treatment [CONS] Routine Acetaminophen [TylenoL] 650 mg PO Q4H PRN Docusate Sodium [Colace] 100 mg PO BID PRN Ondansetron [Zofran] 4 mg IVPUSH Q6H PRN bisacodyL [Dulcolax] 5 mg PO DAILY PRN polyethylene glycoL 3350 [MiraLAX] 17 gm PO DAILY PRN Resuscitation Status Routine 08/28/21 18:25 tiZANidine [Zanaflex] 4 mg PO TID PRN traMADol [Ultram] 50 mg PO Q6H PRN 08/28/21 19:18 Acetaminophen [Tylenol Extra Strength] 500 mg PO BEDTIME PRN diphenhydrAMINE [Benadryl] 25 mg PO BEDTIME PRN 08/28/21 21:00 Amitriptyline [Elavil] 5 mg PO BEDTIME Carbidopa/Levodopa [Sinemet 25-100 mg] 1 tab PO TID Lutein/Minerals/Vit A,C & E [I-Gucci] 1 each PO BID Metoprolol Succinate [Toprol XL] 100 mg PO BEDTIME Sodium Bicarbonate 325 mg PO BID 08/29/21 06:00 Levothyroxine 75 mcg PO ACBREAKFAST Levothyroxine [Synthroid] 100 mcg PO ACBREAKFAST 08/29/21 Breakfast Heart Healthy Diet [DIET] 08/29/21 09:00 Aspirin [Halfprin] 81 mg PO DAILY Calcitonin ([place]) [Miacalcin Nasal [place]] 0 ml MARINE DAILY Cholecalciferol (Vitamin D3) [Vitamin D3] 125 mcg PO DAILY Cyanocobalamin (Vitamin B12) [Vitamin B12] 1,000 mcg PO DAILY Dabigatran [Pradaxa] 75 mg PO BID Famotidine [Pepcid] 20 mg PO DAILY Furosemide [Lasix] 10 mg PO DAILY Losartan [Cozaar] 50 mg PO DAILY Metoprolol Succinate [Toprol XL] 150 mg PO DAILY allopurinoL [Zyloprim] 100 mg PO DAILY amLODIPine [Norvasc] 5 mg PO DAILY calcitrioL [Rocaltrol] 0.75 mcg PO DAILY 08/29/21 09:17 Up With Assistance [RC] ASDIRECTED 08/29/21 16:00 cefTRIAXone [Rocephin] 1 gm Sodium Chloride 0.9% [Normal Saline] 50 ml IV Q24H - Plan Plan:: Difficulty ambulating: multi factorial, excarbation of chronic neck pain, arthritis, Parkinson and ? UTI: recent MRI: cervical and lumber Showed: Signs of chronic multilevel cervical disc degeneration (desiccation/flattening nucleus pulposus. Anterior nonclinical disc herniation and associated marginal spondylosis particularly C5-6 and C6-7 levels lower mid cervical spine. for pt/OT will try to arrange for outpt neurosurgery and pain clinic consultations. UTI: Ceftriaxone. awaiting cult. CKD CAD, A-fib: continue anticoagulation, PARKINSON:Continue with home medications ( pt reports that her Carbidopa/ Levo was increased recently by her neurologist from 3 tab daily to 6 tabs daily) DVT prophylaxis : already anticoagulated, DNR/DNI per pt D/W pt 's daughter Ms Cordova [phone], she would like to explore the option of short term placement till pt is back to baseline. 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
[2021-08-29] MEDS ORDERED: Cyclobenzaprine 10 MG Tab PO PRN ×2 (11:22→19:49)
[2021-08-29] MEDS ORDERED: TIZANIDINE 4 MG PO PRN (12:06)
[2021-08-29] MEDS: Loperamide 2 MG Cap PO PRN (15:26)
[2021-08-29] MEDS: cefTRIAXone 1 GM in Sodium Chloride 0.9% 50 ML IV SCH (15:27)
[2021-08-29] MEDS: diphenhydrAMINE 25 MG Tab PO PRN (20:41)
[2021-08-29] MEDS: Acetaminophen 500 MG Tab PO PRN (20:43)
[2021-08-29] MEDS: Amitriptyline 10 MG Tab PO SCH (20:44)
[2021-08-30] MEDS: Levothyroxine 75 MCG Tab PO SCH (06:27)
[2021-08-30] MEDS: Levothyroxine 100 MCG Tab PO SCH (06:28)
[2021-08-30] MEDS ORDERED: TIZANIDINE 4 MG PO PRN (07:30)
[2021-08-30] MEDS: Loperamide 2 MG Cap PO PRN (08:52)
[2021-08-30] MEDS: Cholecalciferol (Vitamin D3) 25 MCG Tab PO SCH (08:52)
[2021-08-30] MEDS: Calcitriol 0.25 MCG Cap PO SCH (08:53)
[2021-08-30] MEDS: Aspirin 81 MG Tab.EC PO SCH (08:53)
[2021-08-30] MEDS: Famotidine 20 MG Tab PO SCH (08:53)
[2021-08-30] MEDS: Lutein/Minerals/Vit A,C & E Tab PO SCH ×2 (08:53→21:06)
[2021-08-30] MEDS: Furosemide 20 MG Tab PO SCH (08:54)
[2021-08-30] MEDS: Allopurinol 100 MG Tab PO SCH (08:54)
[2021-08-30] MEDS: Sodium Bicarbonate 650 MG Tab PO SCH ×2 (08:54→21:08)
[2021-08-30] MEDS: Dabigatran 75 MG Cap PO SCH ×2 (08:54→21:08)
[2021-08-30] MEDS: Cyanocobalamin (Vitamin B12) 1,000 MCG Tab PO SCH (08:54)
[2021-08-30] MEDS: Carbidopa/Levodopa 25-100 MG Tab PO SCH ×3 (08:55→21:10)
[2021-08-30] MEDS: Losartan 50 MG Tab PO SCH (08:56)
[2021-08-30] MEDS: amLODIPine 5 MG Tab PO SCH (08:56)
[2021-08-30] MEDS: Metoprolol Succinate 50 MG Tab.ER PO SCH ×2 (08:56→21:07)
[2021-08-30] MEDS: Calcitonin (Salmon) Nasal Spray 3.7 ML Bottle NAS SCH ×2 (08:58→21:11)
--- NOTE | 2021-08-30 09:51 | PCM.PN ---
- General Info Date of Service: 08/30/21 Functional Status: Reports: Pain Controlled, Tolerating Diet - Review of Systems General: Denies: Fever Pulmonary: Denies: Shortness of Breath Cardiovascular: Denies: Chest Pain Gastrointestinal: Denies: Abdominal Pain Musculoskeletal: Reports: Neck Pain (better) Skin: Reports: No Symptoms Neurological: Denies: Confusion Psychiatric: Reports: No Symptoms - Patient Data Vitals - Most Recent: Last Vital Signs Temp 98.2 F 08/30/21 08:00 Pulse 86 08/30/21 08:56 Resp 20 08/30/21 08:00 BP 123/67 08/30/21 08:56 Pulse Ox 98 08/30/21 08:00 Weight - Most Recent: 187 lb 9.6 oz I&O - Last 24 Hours: Intake & Output 08/29/21 08/30/21 08/30/21 22:59 06:59 14:59 Intake Total 760 400 240 Balance 760 400 240 Ronnie Results Last 24 Hours: Microbiology 08/28/21 15:35 Urine Culture - Final Urine, Clean Catch Escherichia Coli Med Orders - Current: Current Medications Acetaminophen (Acetaminophen 325 Mg Tab) 650 mg PO Q4H PRN PRN Reason: Pain (Mild 1-3)/fever Acetaminophen (Acetaminophen 500 Mg Tab) 500 mg PO BEDTIME PRN PRN Reason: Insomnia Last Admin: 08/29/21 20:43 Dose: 500 mg Documented by: Allopurinol (Allopurinol 100 Mg Tab) 100 mg PO DAILY [facility] Last Admin: 08/30/21 08:54 Dose: 100 mg Documented by: Amitriptyline HCl (Amitriptyline 10 Mg Tab) 5 mg PO BEDTIME [facility] Last Admin: 08/29/21 20:44 Dose: 5 mg Documented by: Amlodipine Besylate (Amlodipine 5 Mg Tab) 5 mg PO DAILY [facility] Last Admin: 08/30/21 08:56 Dose: 5 mg Documented by: Aspirin (Aspirin 81 Mg Tab.Ec) 81 mg PO DAILY [facility] Last Admin: 08/30/21 08:53 Dose: 81 mg Documented by: Bisacodyl (Bisacodyl 5 Mg Tab) 5 mg PO DAILY PRN PRN Reason: Constipation Calcitonin Wakeman (Calcitonin (Wakeman) Nasal [place] 3.7 Ml Bottle) 0 ml MARINE DAILY [facility] Last Admin: 08/30/21 08:58 Dose: Not Given Documented by: Calcitriol (Calcitriol 0.25 Mcg Cap) 0.75 mcg PO DAILY [facility] Last Admin: 08/30/21 08:53 Dose: 0.75 mcg Documented by: Carbidopa/Levodopa (Carbidopa/Levodopa 25-100 Mg Tab) 2 tab PO TID [facility] Last Admin: 08/30/21 08:55 Dose: 2 tab Documented by: Cholecalciferol (Cholecalciferol (Vitamin D3) 25 Mcg Tab) 125 mcg PO DAILY [facility] Last Admin: 08/30/21 08:52 Dose: 125 mcg Documented by: Cyanocobalamin (Cyanocobalamin (Vitamin B12) 1,000 Mcg Tab) 1,000 mcg PO DAILY [facility] Last Admin: 08/30/21 08:54 Dose: 1,000 mcg Documented by: Dabigatran (Dabigatran 75 Mg Cap) 75 mg PO BID [facility] Last Admin: 08/30/21 08:54 Dose: 75 mg Documented by: Diphenhydramine HCl (Diphenhydramine 25 Mg Tab) 25 mg PO BEDTIME PRN PRN Reason: Insomnia Last Admin: 08/29/21 20:41 Dose: 25 mg Documented by: Docusate Sodium (Docusate Sodium 100 Mg Cap) 100 mg PO BID PRN PRN Reason: Constipation Famotidine (Famotidine 20 Mg Tab) 20 mg PO DAILY [facility] Last Admin: 08/30/21 08:53 Dose: 20 mg Documented by: Furosemide (Furosemide 20 Mg Tab) 10 mg PO DAILY [facility] Last Admin: 08/30/21 08:54 Dose: 10 mg Documented by: Ceftriaxone Sodium 1 gm/ (Sodium Chloride) 50 mls @ 100 mls/hr IV Q24H [facility] Last Infusion: 08/29/21 16:19 Dose: Infused Documented by: Levothyroxine Sodium (Levothyroxine 100 Mcg Tab) 100 mcg PO ACBREAKFAST [facility] Last Admin: 08/30/21 06:28 Dose: 100 mcg Documented by: Levothyroxine Sodium (Levothyroxine 75 Mcg Tab) 75 mcg PO ACBREAKFAST [facility] Last Admin: 08/30/21 06:27 Dose: 75 mcg Documented by: Loperamide HCl (Loperamide 2 Mg Cap) 4 mg PO TID PRN PRN Reason: Diarrhea Last Admin: 08/30/21 08:52 Dose: 4 mg Documented by: Losartan Potassium (Losartan 50 Mg Tab) 50 mg PO DAILY [facility] Last Admin: 08/30/21 08:56 Dose: 50 mg Documented by: Metoprolol Succinate (Metoprolol Succinate 50 Mg Tab.Er) 100 mg PO BEDTIME [facility] Last Admin: 08/29/21 20:42 Dose: 100 mg Documented by: Metoprolol Succinate (Metoprolol Succinate 50 Mg Tab.Er) 150 mg PO DAILY [facility] Last Admin: 08/30/21 08:56 Dose: 150 mg Documented by: Multivitamins/Minerals (Lutein/Minerals/Vit A,C & E Tab) 1 each PO BID [facility] Last Admin: 08/30/21 08:53 Dose: 1 each Documented by: Tizanidine 4 Mg Tab (*Own Med*) 0 each PO TID PRN PRN Reason: neck spasm Ondansetron HCl (Ondansetron 4 Mg/2 Ml Sdv) 4 mg IVPUSH Q6H PRN PRN Reason: Nausea/Vomiting Polyethylene Glycol (Polyethylene Glycol 3350 Powder 17 Gm Packet) 17 gm PO DAILY PRN PRN Reason: Constipation Sodium Bicarbonate (Sodium Bicarbonate 650 Mg Tab) 325 mg PO BID [facility] Last Admin: 08/30/21 08:54 Dose: 325 mg Documented by: Sodium Chloride (Sodium Chloride 0.9% 10 Ml Syringe) 10 ml FLUSH ASDIRECTED PRN PRN Reason: Keep Vein Open Last Admin: 08/28/21 16:25 Dose: 10 ml Documented by: Tramadol HCl (Tramadol 50 Mg Tab) 50 mg PO Q6H PRN PRN Reason: Pain Discontinued Medications Acetaminophen (Acetaminophen 325 Mg Tab) 650 mg PO Q4H PRN PRN Reason: Pain (mild 1-3) Carbidopa/Levodopa (Carbidopa/Levodopa 25-100 Mg Tab) 1 tab PO TID [facility] Last Admin: 08/29/21 08:23 Dose: 1 tab Documented by: Cyclobenzaprine HCl (Cyclobenzaprine 10 Mg Tab) 10 mg PO Q8H PRN PRN Reason: Spasms Stop: 08/30/21 07:30 Sodium Chloride (Normal Saline) 1,000 mls @ 999 mls/hr IV .BOLUS ONE Stop: 08/28/21 16:47 Last Admin: 08/28/21 16:25 Dose: 500 mls/hr Documented by: Ceftriaxone Sodium 2 gm/ (Sodium Chloride) 100 mls @ 200 mls/hr IV ONETIME ONE Stop: 08/28/21 16:43 Last Infusion: 08/28/21 17:38 Dose: Infused Documented by: Non-Formulary Medication (Dabigatran) 150 mg PO BID [facility] Last Admin: 08/29/21 19:01 Dose: Not Given Documented by: Tizanidine 4 Mg Tab (*Own Med*) 0 each PO TID PRN PRN Reason: neck spasm - Exam Quality Assessment: No: Supplemental Oxygen General: Alert, Oriented Lungs: Clear to Auscultation Cardiovascular: Irregular Rhythm GI/Abdominal Exam: Soft Back Exam: Normal Inspection Extremities: Normal Inspection Skin: Warm, Dry Neurological: No New Focal Deficit Psy/Mental Status: Alert, Normal Affect - Patient Data Result Diagrams: 08/28/21 14:17 08/29/21 05:35 Ronnie Results Last 24 hrs: Microbiology 08/28/21 15:35 Urine Culture - Final Urine, Clean Catch Escherichia Coli Sepsis Event Note - Evaluation Sepsis Screening Result: No Definite Risk - Focused Exam Vital Signs: Vital Signs Temp Pulse Pulse Resp BP BP Pulse Ox 08/30/21 08:56 86 123/67 08/30/21 08:00 98.2 F 86 20 123/67 98 08/30/21 00:00 98.4 F 82 18 123/70 96 - Problem List Review Problem List Initiated/Reviewed/Updated: Yes - My Orders Last 24 Hours: My Active Orders 08/29/21 09:00 Aspirin [Halfprin] 81 mg PO DAILY Calcitonin (Wakeman) [Miacalcin Nasal [place]] 0 ml MARINE DAILY Cholecalciferol (Vitamin D3) [Vitamin D3] 125 mcg PO DAILY Cyanocobalamin (Vitamin B12) [Vitamin B12] 1,000 mcg PO DAILY Dabigatran [Pradaxa] 75 mg PO BID Famotidine [Pepcid] 20 mg PO DAILY Furosemide [Lasix] 10 mg PO DAILY Losartan [Cozaar] 50 mg PO DAILY Metoprolol Succinate [Toprol XL] 150 mg PO DAILY allopurinoL [Zyloprim] 100 mg PO DAILY amLODIPine [Norvasc] 5 mg PO DAILY calcitrioL [Rocaltrol] 0.75 mcg PO DAILY 08/29/21 09:17 Up With Assistance [RC] ASDIRECTED 08/29/21 12:51 Loperamide [Imodium] 4 mg PO TID PRN 08/29/21 14:00 Carbidopa/Levodopa [Sinemet 25-100 mg] 2 tab PO TID 08/29/21 16:00 cefTRIAXone [Rocephin] 1 gm Sodium Chloride 0.9% [Normal Saline] 50 ml IV Q24H 08/30/21 07:30 Non-Formulary Medication [NF Drug] 0 each PO TID PRN - Plan Plan:: Difficulty ambulating: multi factorial, excarbation of chronic neck pain, ar thritis, Parkinson and ? UTI: recent MRI: cervical and lumber Showed: Signs of chronic multilevel cervical disc degeneration (desiccation/flattening nucleus pulposus. Anterior nonclinical disc herniation and associated marginal spondylosis particularly C5-6 and C6-7 levels lower mid cervical spine. for pt/OT for outpt neurosurgery and pain clinic consultations. UTI: Ceftriaxone for now. CKD CAD, A-fib: continue anticoagulation, PARKINSON:Continue with home medications ( pt reports that her Carbidopa/ Levo was increased recently by her neurologist from 3 tab daily to 6 tabs daily) DVT prophylaxis : already anticoagulated, DNR/DNI per pt D/W pt 's daughter Ms Cordova [phone], she would like to explore the option of short term placement till pt is back to baseline. tool and die manager is following.
[2021-08-30] MEDS: cefTRIAXone 1 GM in Sodium Chloride 0.9% 50 ML IV SCH (15:10)
[2021-08-30] MEDS: Amitriptyline 10 MG Tab PO SCH (21:09)
[2021-08-30] MEDS: Acetaminophen 500 MG Tab PO PRN (21:18)
[2021-08-30] MEDS: diphenhydrAMINE 25 MG Tab PO PRN (21:19)
[2021-08-31] MEDS ORDERED: Levothyroxine 100 MCG Tab PO ONE (04:52)
[2021-08-31] MEDS ORDERED: Levothyroxine 75 MCG Tab PO ONE (04:52)
[2021-08-31] MEDS: Levothyroxine 75 MCG Tab PO SCH (06:52)
[2021-08-31] MEDS: Levothyroxine 100 MCG Tab PO SCH (06:52)
--- NOTE | 2021-08-31 09:44 | PCM.PN ---
- General Info Date of Service: 08/31/21 Subjective Update: Feeling better, was able to ambulate. happy about the plans for NH possibly in am Functional Status: Reports: Pain Controlled, Tolerating Diet - Review of Systems General: Denies: Fever Pulmonary: Denies: Shortness of Breath Cardiovascular: Denies: Chest Pain Musculoskeletal: Reports: Neck Pain (controlled) Neurological: Reports: No Symptoms Psychiatric: Reports: No Symptoms - Patient Data Vitals - Most Recent: Last Vital Signs Temp 97.4 F 08/31/21 08:00 Pulse 76 08/31/21 08:00 Resp 16 08/31/21 08:00 BP 138/92 H 08/31/21 08:00 Pulse Ox 99 08/31/21 08:00 Weight - Most Recent: 187 lb 9.6 oz I&O - Last 24 Hours: Intake & Output 08/30/21 08/31/21 08/31/21 22:59 06:59 14:59 Intake Total 250 100 Balance 250 100 Ronnie Results Last 24 Hours: Microbiology 08/28/21 15:35 Urine Culture - Final Urine, Clean Catch Escherichia Coli Med Orders - Current: Current Medications Acetaminophen (Acetaminophen 325 Mg Tab) 650 mg PO Q4H PRN PRN Reason: Pain (Mild 1-3)/fever Acetaminophen (Acetaminophen 500 Mg Tab) 500 mg PO BEDTIME PRN PRN Reason: Insomnia Last Admin: 08/30/21 21:18 Dose: 500 mg Documented by: Allopurinol (Allopurinol 100 Mg Tab) 100 mg PO DAILY [facility] Last Admin: 08/30/21 08:54 Dose: 100 mg Documented by: Amitriptyline HCl (Amitriptyline 10 Mg Tab) 5 mg PO BEDTIME [facility] Last Admin: 08/30/21 21:09 Dose: 5 mg Documented by: Amlodipine Besylate (Amlodipine 5 Mg Tab) 5 mg PO DAILY [facility] Last Admin: 08/30/21 08:56 Dose: 5 mg Documented by: Aspirin (Aspirin 81 Mg Tab.Ec) 81 mg PO DAILY [facility] Last Admin: 08/30/21 08:53 Dose: 81 mg Documented by: Bisacodyl (Bisacodyl 5 Mg Tab) 5 mg PO DAILY PRN PRN Reason: Constipation Calcitonin Fenton (Calcitonin (Fenton) Nasal [place] 3.7 Ml Bottle) 0 ml MARINE BEDTIME [facility] Last Admin: 08/30/21 21:11 Dose: 1 spray Documented by: Calcitriol (Calcitriol 0.25 Mcg Cap) 0.75 mcg PO DAILY [facility] Last Admin: 08/30/21 08:53 Dose: 0.75 mcg Documented by: Carbidopa/Levodopa (Carbidopa/Levodopa 25-100 Mg Tab) 2 tab PO TID [facility] Last Admin: 08/30/21 21:10 Dose: 2 tab Documented by: Cholecalciferol (Cholecalciferol (Vitamin D3) 25 Mcg Tab) 125 mcg PO DAILY [facility] Last Admin: 08/30/21 08:52 Dose: 125 mcg Documented by: Cyanocobalamin (Cyanocobalamin (Vitamin B12) 1,000 Mcg Tab) 1,000 mcg PO DAILY [facility] Last Admin: 08/30/21 08:54 Dose: 1,000 mcg Documented by: Dabigatran (Dabigatran 75 Mg Cap) 75 mg PO BID [facility] Last Admin: 08/30/21 21:08 Dose: 75 mg Documented by: Diphenhydramine HCl (Diphenhydramine 25 Mg Tab) 25 mg PO BEDTIME PRN PRN Reason: Insomnia Last Admin: 08/30/21 21:19 Dose: 25 mg Documented by: Docusate Sodium (Docusate Sodium 100 Mg Cap) 100 mg PO BID PRN PRN Reason: Constipation Famotidine (Famotidine 20 Mg Tab) 20 mg PO DAILY [facility] Last Admin: 08/30/21 08:53 Dose: 20 mg Documented by: Furosemide (Furosemide 20 Mg Tab) 10 mg PO DAILY [facility] Last Admin: 08/30/21 08:54 Dose: 10 mg Documented by: Ceftriaxone Sodium 1 gm/ (Sodium Chloride) 50 mls @ 100 mls/hr IV Q24H [facility] Last Admin: 08/30/21 15:10 Dose: 100 mls/hr Documented by: Levothyroxine Sodium (Levothyroxine 100 Mcg Tab) 100 mcg PO ACBREAKFAST [facility] Last Admin: 08/31/21 06:52 Dose: Not Given Documented by: Levothyroxine Sodium (Levothyroxine 75 Mcg Tab) 75 mcg PO ACBREAKFAST [facility] Last Admin: 08/31/21 06:52 Dose: Not Given Documented by: Loperamide HCl (Loperamide 2 Mg Cap) 4 mg PO TID PRN PRN Reason: Diarrhea Last Admin: 08/30/21 08:52 Dose: 4 mg Documented by: Losartan Potassium (Losartan 50 Mg Tab) 50 mg PO DAILY [facility] Last Admin: 08/30/21 08:56 Dose: 50 mg Documented by: Metoprolol Succinate (Metoprolol Succinate 50 Mg Tab.Er) 100 mg PO BEDTIME [facility] Last Admin: 08/30/21 21:07 Dose: 100 mg Documented by: Metoprolol Succinate (Metoprolol Succinate 50 Mg Tab.Er) 150 mg PO DAILY [facility] Last Admin: 08/30/21 08:56 Dose: 150 mg Documented by: Multivitamins/Minerals (Lutein/Minerals/Vit A,C & E Tab) 1 each PO BID [facility] Last Admin: 08/30/21 21:06 Dose: 1 each Documented by: Tizanidine 4 Mg Tab (*Own Med*) 0 each PO TID PRN PRN Reason: neck spasm Ondansetron HCl (Ondansetron 4 Mg/2 Ml Sdv) 4 mg IVPUSH Q6H PRN PRN Reason: Nausea/Vomiting Polyethylene Glycol (Polyethylene Glycol 3350 Powder 17 Gm Packet) 17 gm PO DAILY PRN PRN Reason: Constipation Sodium Bicarbonate (Sodium Bicarbonate 650 Mg Tab) 325 mg PO BID [facility] Last Admin: 08/30/21 21:08 Dose: 325 mg Documented by: Sodium Chloride (Sodium Chloride 0.9% 10 Ml Syringe) 10 ml FLUSH ASDIRECTED PRN PRN Reason: Keep Vein Open Last Admin: 08/28/21 16:25 Dose: 10 ml Documented by: Tramadol HCl (Tramadol 50 Mg Tab) 50 mg PO Q6H PRN PRN Reason: Pain Discontinued Medications Acetaminophen (Acetaminophen 325 Mg Tab) 650 mg PO Q4H PRN PRN Reason: Pain (mild 1-3) Calcitonin Fenton (Calcitonin (Fenton) Nasal [place] 3.7 Ml Bottle) 0 ml MARINE DAILY [facility] Last Admin: 08/30/21 08:58 Dose: Not Given Documented by: Carbidopa/Levodopa (Carbidopa/Levodopa 25-100 Mg Tab) 1 tab PO TID [facility] Last Admin: 08/29/21 08:23 Dose: 1 tab Documented by: Cyclobenzaprine HCl (Cyclobenzaprine 10 Mg Tab) 10 mg PO Q8H PRN PRN Reason: Spasms Stop: 08/30/21 07:30 Sodium Chloride (Normal Saline) 1,000 mls @ 999 mls/hr IV .BOLUS ONE Stop: 08/28/21 16:47 Last Admin: 08/28/21 16:25 Dose: 500 mls/hr Documented by: Ceftriaxone Sodium 2 gm/ (Sodium Chloride) 100 mls @ 200 mls/hr IV ONETIME ONE Stop: 08/28/21 16:43 Last Infusion: 08/28/21 17:38 Dose: Infused Documented by: Non-Formulary Medication (Dabigatran) 150 mg PO BID [facility] Last Admin: 08/29/21 19:01 Dose: Not Given Documented by: Tizanidine 4 Mg Tab (*Own Med*) 0 each PO TID PRN PRN Reason: neck spasm - Exam Quality Assessment: No: Supplemental Oxygen General: Alert, Oriented, Other HEENT: EOMI GI/Abdominal Exam: Soft Extremities: Normal Inspection, No Pedal Edema Skin: Warm, Dry Wound/Incisions: Healing Well Neurological: No New Focal Deficit Psy/Mental Status: Alert - Patient Data Result Diagrams: 08/28/21 14:17 08/29/21 05:35 Ronnie Results Last 24 hrs: Microbiology 08/28/21 15:35 Urine Culture - Final Urine, Clean Catch Escherichia Coli Sepsis Event Note - Evaluation Sepsis Screening Result: No Definite Risk - Focused Exam Vital Signs: Vital Signs Temp Pulse Resp BP Pulse Ox 08/31/21 08:00 97.4 F 76 16 138/92 H 99 - Problem List Review Problem List Initiated/Reviewed/Updated: Yes - My Orders Last 24 Hours: My Active Orders 08/30/21 21:00 Calcitonin (Fenton) [Miacalcin Nasal [place]] 0 ml MARINE BEDTIME 08/31/21 09:40 CULTURE URINE [RM] Routine 09/01/21 06:30 CORONAVIRUS COVID-19 LEXUS [MOLEC] Routine - Plan Plan:: Difficulty ambulating: multi factorial, exacerbation of chronic neck pain, arthritis, Parkinson and ? UTI: Recent MRI: cervical and lumber Showed: Signs of chronic multilevel cervical disc degeneration (desiccation/flattening nucleus pulposus. Anterior nonclinical disc herniation and associated marginal spondylosis particularly C5-6 and C6-7 levels lower mid cervical spine. for pt/OT for outpt neurosurgery and pain clinic consultations. UTI: Ceftriaxone for now. re cult today CKD CAD, A-fib: continue anticoagulation, PARKINSON:Continue with home medications ( pt reports that her Carbidopa/ Levo was increased recently by her neurologist from 3 tab daily to 6 tabs daily) DVT prophylaxis : already anticoagulated, DNR/DNI per pt For short term placement till pt is back to baseline. brand protection manager is following.
[2021-08-31] MEDS: Losartan 50 MG Tab PO SCH (10:38)
[2021-08-31] MEDS: Aspirin 81 MG Tab.EC PO SCH (10:38)
[2021-08-31] MEDS: Furosemide 20 MG Tab PO SCH (10:39)
[2021-08-31] MEDS: Famotidine 20 MG Tab PO SCH (10:39)
[2021-08-31] MEDS: amLODIPine 5 MG Tab PO SCH (10:39)
[2021-08-31] MEDS: Lutein/Minerals/Vit A,C & E Tab PO SCH ×2 (10:39→20:39)
[2021-08-31] MEDS: Dabigatran 75 MG Cap PO SCH ×2 (10:40→20:37)
[2021-08-31] MEDS: Allopurinol 100 MG Tab PO SCH (10:40)
[2021-08-31] MEDS: Cholecalciferol (Vitamin D3) 25 MCG Tab PO SCH (10:40)
[2021-08-31] MEDS: Loperamide 2 MG Cap PO PRN (10:45)
[2021-08-31] MEDS: Cyanocobalamin (Vitamin B12) 1,000 MCG Tab PO SCH (10:48)
[2021-08-31] MEDS: Metoprolol Succinate 50 MG Tab.ER PO SCH ×2 (10:48→20:37)
[2021-08-31] MEDS: Calcitriol 0.25 MCG Cap PO SCH (10:49)
[2021-08-31] MEDS: Sodium Bicarbonate 650 MG Tab PO SCH ×2 (10:49→20:40)
[2021-08-31] MEDS: Carbidopa/Levodopa 25-100 MG Tab PO SCH ×3 (10:49→20:39)
[2021-08-31] MEDS: cefTRIAXone 1 GM in Sodium Chloride 0.9% 50 ML IV SCH (16:57)
[2021-08-31] MEDS: Loperamide 2 MG Cap PO SCH (17:21)
[2021-08-31] MEDS: diphenhydrAMINE 25 MG Tab PO PRN (20:38)
[2021-08-31] MEDS: Acetaminophen 500 MG Tab PO PRN (20:38)
[2021-08-31] MEDS: Amitriptyline 10 MG Tab PO SCH (20:39)
[2021-08-31] MEDS: Calcitonin (Salmon) Nasal Spray 3.7 ML Bottle NAS SCH (20:44)
[2021-09-01] MEDS: Levothyroxine 75 MCG Tab PO SCH (06:18)
[2021-09-01] MEDS: Levothyroxine 100 MCG Tab PO SCH (06:18)
[2021-09-01] MEDS: Cholecalciferol (Vitamin D3) 25 MCG Tab PO SCH (08:57)
[2021-09-01] MEDS: Calcitriol 0.25 MCG Cap PO SCH (08:57)
[2021-09-01] MEDS: Metoprolol Succinate 50 MG Tab.ER PO SCH (08:58)
[2021-09-01] MEDS: Cyanocobalamin (Vitamin B12) 1,000 MCG Tab PO SCH (08:59)
[2021-09-01] MEDS: Loperamide 2 MG Cap PO SCH (08:59)
[2021-09-01] MEDS: amLODIPine 5 MG Tab PO SCH (08:59)
[2021-09-01] MEDS: Lutein/Minerals/Vit A,C & E Tab PO SCH (08:59)
[2021-09-01] MEDS: Aspirin 81 MG Tab.EC PO SCH (08:59)
[2021-09-01] MEDS: Losartan 50 MG Tab PO SCH (09:00)
[2021-09-01] MEDS: Dabigatran 75 MG Cap PO SCH (09:00)
[2021-09-01] MEDS: Allopurinol 100 MG Tab PO SCH (09:00)
[2021-09-01] MEDS: Famotidine 20 MG Tab PO SCH (09:01)
[2021-09-01] MEDS: Furosemide 20 MG Tab PO SCH (09:01)
[2021-09-01] MEDS: Sodium Bicarbonate 650 MG Tab PO SCH (09:01)
[2021-09-01] MEDS: Carbidopa/Levodopa 25-100 MG Tab PO SCH (09:10)
--- NOTE | 2021-09-01 09:35 | PCM.DCSUM1 ---
Discharge Summary - Hospital Course Free Text/Narrative:: 81 y/o F c/o weakness, frequent falls, cervical neck pn x 2 months. Pt states that she had a uti 2 months ago and since then her condition has deteriorated. She reports that after her uti she went to a chiropractor for neck pain and after her adjustment she has barely been able to walk and has increased falls. An MRI was done a week ago on her cervical spine which showed significant degenerative changes but reportedly nothing surgical. She has since developed weakness in her lower legs and is no longer able to ambulate around the house. She is on Pradaxa and has multiple bruises from falls. Denies hitting her head and LOC. Denies fever, cough, chills, drugs, eoth. During her stay she was treated for the following: Difficulty ambulating: multi factorial, exacerbation of chronic neck pain, arthritis, Parkinson and ? UTI: Recent MRI: cervical and lumber showed: Signs of chronic multilevel cervical disc degeneration (desiccation/flattening nucleus pulposus. Anterior nonclinical disc herniation and associated marginal spondylosis particularly C5-6 and C6-7 levels lower mid cervical spine. Pt was evaluated with pt/OT for outpt neurosurgery and pain clinic consultations. Simple UTI: E choli sensitive to Ceftriaxone. Completed treatment. re cult yest: still pending. CKD stage3: baseline CAD, A-fib: continue anticoagulation, The dose of Pradaxa was decreased as per the pharmacy recommendation. PARKINSON:Continue with home medications ( pt reports that her Carbidopa/ Levo was increased recently by her neurologist from 3 tab daily to 6 tabs daily) DVT prophylaxis : already anticoagulated, DNR/DNI per pt wishes. Pt was accepted at [facility] for PT/OT. Diagnosis: Stroke: No - Discharge Data Discharge Date: 09/01/21 Discharge Disposition: DC/Tfer to [facility] Condition: Good - Referral to Home Health Primary Care Physician: PCP None - Patient Summary/Data Consults: Consultations 08/28/21 18:18 OT Evaluation and Treatment [CONS] Routine PT Evaluation and Treatment [CONS] Routine - Discharge Plan *PRESCRIPTION DRUG MONITORING PROGRAM REVIEWED*: Not Applicable *COPY OF PRESCRIPTION DRUG MONITORING REPORT IN PATIENT REYNALDO: Not Applicable Home Medications: Home Meds Acetaminophen/Diphenhydramine [Tylenol Pm Ex-Strength Caplet] 1 tab PO DAILY PRN 08/07/18 [History] Carbidopa/Levodopa [Carbidopa-Levo 25-100 MG ODT] 25 - 100 mg PO TID 08/07/18 [History] Cholecalciferol (Vitamin D3) [Vitamin D3] 5,000 units PO DAILY 08/07/18 [History] Dabigatran [Pradaxa] 150 mg PO BID 08/07/18 [History] Levothyroxine 175 mcg PO ACBREAKFAST 08/07/18 [History] Losartan [Cozaar] 50 mg PO DAILY 08/07/18 [History] Metoprolol Succinate [Toprol XL 100mg] 150 mg PO .MORNING 08/07/18 [History] Sodium Bicarbonate 325 mg PO BID 08/07/18 [History] Vit C/E/Zn/Coppr/Lutein/Zeaxan [Preservision Areds 2 Softgel] 1 cap PO BID 08/07/18 [History] calcitrioL [Calcitriol] 0.75 mcg PO DAILY 08/07/18 [History] Acetaminophen [Tylenol] 650 mg PO Q4H PRN tablet 08/21/18 [Rx] Amitriptyline [Elavil] 5 mg PO BEDTIME 09/06/20 [History] Aspirin [Halfprin] 81 mg PO DAILY 09/06/20 [History] Calcitonin,Cozad,Synthetic [Calcitonin-Cozad] 1 spray MARINE ASDIRECTED 09/06/20 [History] Cyanocobalamin (Vitamin B-12) [Vitamin B-12] 1,000 mcg PO DAILY 09/06/20 [History] Famotidine 20 mg PO DAILY 09/06/20 [History] Fluorometholone [Fluorometholone 0.1% Ophth Susp] 1 drop EYEBOTH ASDIRECTED 09/06/20 [History] Furosemide [Lasix] 10 mg PO DAILY 09/06/20 [History] Syro-Kosi-Dxwei [Cataract Opthalmic Solution] 1 drop EYEBOTH ASDIRECTED 09/06/20 [History] allopurinoL [Zyloprim] 100 mg PO DAILY 09/06/20 [History] amLODIPine [Norvasc] 5 mg PO DAILY 09/06/20 [History] metOLazone [Metolazone] 5 mg PO ASDIRECTED 09/06/20 [History] tiZANidine [Zanaflex] 4 mg PO TID PRN 09/06/20 [History] Metoprolol Succinate 100 mg PO BEDTIME 08/28/21 [History] traMADol [Ultram] 50 mg PO Q6H PRN 08/28/21 [History] Loperamide [Imodium] 4 mg PO TIDMEALS 08/29/21 [History] Forms: ED Department Discharge Referrals: Court L[facility] NP [Ordering Only Provider] - - Discharge Summary/Plan Comment DC Time >30 min.: No Total # of Minutes for Discharge Time: 25 min - General Info Functional Status: Reports: Pain Controlled, Tolerating Diet - Review of Systems General: Denies: Fever HEENT: Denies: No Symptoms Pulmonary: Denies: Shortness of Breath Cardiovascular: Denies: Chest Pain Gastrointestinal: Denies: Abdominal Pain Genitourinary: Denies: Dysuria Musculoskeletal: Reports: Neck Pain Neurological: Reports: No Symptoms Psychiatric: Reports: No Symptoms - Patient Data Vitals - Most Recent: Last Vital Signs Temp 97.3 F 09/01/21 08:00 Pulse 80 09/01/21 08:58 Resp 16 09/01/21 08:00 BP 141/73 H 09/01/21 09:00 Pulse Ox 98 09/01/21 08:00 Weight - Most Recent: 187 lb 9.6 oz I&O - Last 24 hours: Intake & Output 08/31/21 09/01/21 09/01/21 22:59 06:59 14:59 Intake Total 400 100 Output Total 1000 Balance -600 100 Lab Results - Last 24 hrs: Laboratory Results - last 24 hr 09/01/21 Range/Units 06:30 SARS-CoV-2 RNA ([facility]) Negative (NEGATIVE) Med Orders - Current: Current Medications Acetaminophen (Acetaminophen 325 Mg Tab) 650 mg PO Q4H PRN PRN Reason: Pain (Mild 1-3)/fever Acetaminophen (Acetaminophen 500 Mg Tab) 500 mg PO BEDTIME PRN PRN Reason: Insomnia Last Admin: 08/31/21 20:38 Dose: 500 mg Documented by: Allopurinol (Allopurinol 100 Mg Tab) 100 mg PO DAILY DEYVI Last Admin: 09/01/21 09:00 Dose: 100 mg Documented by: Amitriptyline HCl (Amitriptyline 10 Mg Tab) 5 mg PO BEDTIME DEYVI Last Admin: 08/31/21 20:39 Dose: 5 mg Documented by: Amlodipine Besylate (Amlodipine 5 Mg Tab) 5 mg PO DAILY [facility] Last Admin: 09/01/21 08:59 Dose: 5 mg Documented by: Aspirin (Aspirin 81 Mg Tab.Ec) 81 mg PO DAILY [facility] Last Admin: 09/01/21 08:59 Dose: 81 mg Documented by: Bisacodyl (Bisacodyl 5 Mg Tab) 5 mg PO DAILY PRN PRN Reason: Constipation Calcitonin Cozad (Calcitonin (Cozad) Nasal [place] 3.7 Ml Bottle) 0 ml MARINE BEDTIME [facility] Last Admin: 08/31/21 20:44 Dose: 1 spray Documented by: Calcitriol (Calcitriol 0.25 Mcg Cap) 0.75 mcg PO DAILY [facility] Last Admin: 09/01/21 08:57 Dose: 0.75 mcg Documented by: Carbidopa/Levodopa (Carbidopa/Levodopa 25-100 Mg Tab) 2 tab PO TID [facility] Last Admin: 09/01/21 09:10 Dose: 2 tab Documented by: Cholecalciferol (Cholecalciferol (Vitamin D3) 25 Mcg Tab) 125 mcg PO DAILY [facility] Last Admin: 09/01/21 08:57 Dose: 125 mcg Documented by: Cyanocobalamin (Cyanocobalamin (Vitamin B12) 1,000 Mcg Tab) 1,000 mcg PO DAILY [facility] Last Admin: 09/01/21 08:59 Dose: 1,000 mcg Documented by: Dabigatran (Dabigatran 75 Mg Cap) 75 mg PO BID [facility] Last Admin: 09/01/21 09:00 Dose: 75 mg Documented by: Diphenhydramine HCl (Diphenhydramine 25 Mg Tab) 25 mg PO BEDTIME PRN PRN Reason: Insomnia Last Admin: 08/31/21 20:38 Dose: 25 mg Documented by: Docusate Sodium (Docusate Sodium 100 Mg Cap) 100 mg PO BID PRN PRN Reason: Constipation Famotidine (Famotidine 20 Mg Tab) 20 mg PO DAILY [facility] Last Admin: 09/01/21 09:01 Dose: 20 mg Documented by: Furosemide (Furosemide 20 Mg Tab) 10 mg PO DAILY [facility] Last Admin: 09/01/21 09:01 Dose: 10 mg Documented by: Ceftriaxone Sodium 1 gm/ (Sodium Chloride) 50 mls @ 100 mls/hr IV Q24H [facility] Last Admin: 08/31/21 16:57 Dose: 100 mls/hr Documented by: Levothyroxine Sodium (Levothyroxine 100 Mcg Tab) 100 mcg PO ACBREAKFAST [facility] Last Admin: 09/01/21 06:18 Dose: 100 mcg Documented by: Levothyroxine Sodium (Levothyroxine 75 Mcg Tab) 75 mcg PO ACBREAKFAST [facility] Last Admin: 09/01/21 06:18 Dose: 75 mcg Documented by: Loperamide HCl (Loperamide 2 Mg Cap) 4 mg PO TIDMEALS [facility] Last Admin: 09/01/21 08:59 Dose: 4 mg Documented by: Losartan Potassium (Losartan 50 Mg Tab) 50 mg PO DAILY [facility] Last Admin: 09/01/21 09:00 Dose: 50 mg Documented by: Metoprolol Succinate (Metoprolol Succinate 50 Mg Tab.Er) 100 mg PO BEDTIME [facility] Last Admin: 08/31/21 20:37 Dose: 100 mg Documented by: Metoprolol Succinate (Metoprolol Succinate 50 Mg Tab.Er) 150 mg PO DAILY [facility] Last Admin: 09/01/21 08:58 Dose: 150 mg Documented by: Multivitamins/Minerals (Lutein/Minerals/Vit A,C & E Tab) 1 each PO BID [facility] Last Admin: 09/01/21 08:59 Dose: 1 each Documented by: Tizanidine 4 Mg Tab (*Own Med*) 0 each PO TID PRN PRN Reason: neck spasm Ondansetron HCl (Ondansetron 4 Mg/2 Ml Sdv) 4 mg IVPUSH Q6H PRN PRN Reason: Nausea/Vomiting Polyethylene Glycol (Polyethylene Glycol 3350 Powder 17 Gm Packet) 17 gm PO DAILY PRN PRN Reason: Constipation Sodium Bicarbonate (Sodium Bicarbonate 650 Mg Tab) 325 mg PO BID [facility] Last Admin: 09/01/21 09:01 Dose: 325 mg Documented by: Sodium Chloride (Sodium Chloride 0.9% 10 Ml Syringe) 10 ml FLUSH ASDIRECTED PRN PRN Reason: Keep Vein Open Last Admin: 08/28/21 16:25 Dose: 10 ml Documented by: Tramadol HCl (Tramadol 50 Mg Tab) 50 mg PO Q6H PRN PRN Reason: Pain Discontinued Medications Acetaminophen (Acetaminophen 325 Mg Tab) 650 mg PO Q4H PRN PRN Reason: Pain (mild 1-3) Calcitonin Cozad (Calcitonin (Cozad) Nasal [place] 3.7 Ml Bottle) 0 ml MARINE DAILY [facility] Last Admin: 08/30/21 08:58 Dose: Not Given Documented by: Carbidopa/Levodopa (Carbidopa/Levodopa 25-100 Mg Tab) 1 tab PO TID [facility] Last Admin: 08/29/21 08:23 Dose: 1 tab Documented by: Cyclobenzaprine HCl (Cyclobenzaprine 10 Mg Tab) 10 mg PO Q8H PRN PRN Reason: Spasms Stop: 08/30/21 07:30 Sodium Chloride (Normal Saline) 1,000 mls @ 999 mls/hr IV .BOLUS ONE Stop: 08/28/21 16:47 Last Admin: 08/28/21 16:25 Dose: 500 mls/hr Documented by: Ceftriaxone Sodium 2 gm/ (Sodium Chloride) 100 mls @ 200 mls/hr IV ONETIME ONE Stop: 08/28/21 16:43 Last Infusion: 08/28/21 17:38 Dose: Infused Documented by: Loperamide HCl (Loperamide 2 Mg Cap) 4 mg PO TID PRN PRN Reason: Diarrhea Last Admin: 08/31/21 10:45 Dose: 4 mg Documented by: Non-Formulary Medication (Dabigatran) 150 mg PO BID [facility] Last Admin: 08/29/21 19:01 Dose: Not Given Documented by: Tizanidine 4 Mg Tab (*Own Med*) 0 each PO TID PRN PRN Reason: neck spasm - Exam Quality Assessment: Denies: Supplemental Oxygen General: Reports: Alert, Oriented HEENT: Reports: EOMI Lungs: Reports: Clear to Auscultation Cardiovascular: Reports: Regular Rate, Regular Rhythm GI/Abdominal Exam: Normal Bowel Sounds, Soft Extremities: Normal Inspection Skin: Reports: Warm, Dry Neurological: Reports: No New Focal Deficit Psy/Mental Status: Reports: Alert, Normal Affect
== END 2021-09-01 10:40 | DRG 690 ==
LOC: DL.ED 12:31 → DL.MS 16:33
PROVIDERS: ADMIT Internal Medicine; ATTEND Internal Medicine
DX: N39.0 Urinary tract infection, site not specified (principal); B96.20 Unspecified Escherichia coli [E. coli] as the cause of diseases classified elsewhere; G89.29 Other chronic pain; M54.2 Cervicalgia; R53.1 Weakness; Z66 Do not resuscitate; H54.7 Unspecified visual loss; N18.30 Chronic kidney disease, stage 3 unspecified; I48.91 Unspecified atrial fibrillation; N18.9 Chronic kidney disease, unspecified; I25.10 Atherosclerotic heart disease of native coronary artery without angina pectoris; I12.9 Hypertensive chronic kidney disease with stage 1 through stage 4 chronic kidney disease, or unspecified chronic kidney disease; K52.9 Noninfective gastroenteritis and colitis, unspecified; E78.00 Pure hypercholesterolemia, unspecified; Z95.5 Presence of coronary angioplasty implant and graft; N60.19 Diffuse cystic mastopathy of unspecified breast; K21.9 Gastro-esophageal reflux disease without esophagitis; Q60.0 Renal agenesis, unilateral; E66.9 Obesity, unspecified; M19.90 Unspecified osteoarthritis, unspecified site; Z96.649 Presence of unspecified artificial hip joint; Z96.659 Presence of unspecified artificial knee joint; Z90.710 Acquired absence of both cervix and uterus; Z98.49 Cataract extraction status, unspecified eye; M10.9 Gout, unspecified; Z79.01 Long term (current) use of anticoagulants; G20 Parkinson's disease; E03.9 Hypothyroidism, unspecified; G62.9 Polyneuropathy, unspecified; Z91.011 Allergy to milk products; E53.8 Deficiency of other specified B group vitamins; Z88.6 Allergy status to analgesic agent; Z98.84 Bariatric surgery status; Z90.49 Acquired absence of other specified parts of digestive tract; Z98.890 Other specified postprocedural states; Z88.8 Allergy status to other drugs, medicaments and biological substances; Z68.27 Body mass index [BMI] 27.0-27.9, adult; Z79.82 Long term (current) use of aspirin; Z79.890 Hormone replacement therapy; Z79.899 Other long term (current) drug therapy; Z20.822 Contact with and (suspected) exposure to COVID-19
CPT/HCPCS: 36415; 71045; 80053; 81001; 82150; 83605; 83690; 83735; 83880; 84100; 84443; 85025; 85610; 86140; 87086; 87088; 87186; 96374; 99285; J0696; J7030; U0002; 80048; 97166-GO; 97530-GO; 97535-GO; A9270-GY

== ENCOUNTER 2021-10-25 10:41 | Emergency (ER) | payer MEDICARE, BC ==
--- NOTE | 2021-10-25 11:41 | EDM.PDOC ---
ED HPI GENERAL MEDICAL PROBLEM - General Chief Complaint: General Stated Complaint: DR. WAHL / POSSIBLE INFECTION Time Seen by Provider: 10/25/21 12:10 Source of Information: Reports: Patient, EMS, Old Records, Provider (Dr. Wahl), RN, RN Notes Reviewed History Limitations: Reports: No Limitations - History of Present Illness INITIAL COMMENTS - FREE TEXT/NARRATIVE: Pt sent from [place] by Dr. Wahl for evaluation of buttock ulcer. Pt has been reportedly in a "state of decline" since Jul. or Aug. of this year. Pt considered a poor surgical candidate for deep wound debridement. [Note from Dr. Wahl from today as follows: 81-year-old female from [facility], admitted there on 09/01/2021. Sent to ER for declining status. Has large sacral ulceration, due to being constantly in recliner. Started last week on regimen of off-loading, daily wound care, and doxycycline 100 mg BID (10/15/21). Nursing notes increasingly foul odor from wound. Oral intake has been declining. No fever. BP has been running low, causing BP meds to be held/reduced/discontinued. SBP around 80. 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 Other PMH: hypothyroidism, persistent proteinuria, hypoalbuminemia (1.9), edema, iron deficiency, coronary artery disease, anemia, Parkinson's disease, folate deficient. S/P gastric bypass with chronic loose stools (malabsorption?). Recent labs: Oct 05-10/16. Albumin 1.9. BUN/creat 44 and 1.5 with GFR 33. Hgb/Hct 8.0 and 25.1. WBC 12K. Spoke with family this morning about declining status. Large family with 7 adult children. also admitted to [facility] with advanced dementia. Please evaluate. Will discuss with you and decide on plan of care when results are back.] Onset: Gradual Duration: Getting Worse Location: Reports: Other (Buttock) Severity: Severe Improves with: Reports: None - Related Data Allergies Allergy/AdvReac Type Severity Reaction Status Date / Time cerivastatin [From Baycol] AdvReac Intermediate Other Verified 10/25/21 12:10 milk AdvReac Unknown Diarrhea Verified 10/25/21 12:10 alendronate sodium AdvReac Other Verified 10/25/21 12:10 [From Fosamax] meperidine [From Demerol] AdvReac Nausea and Verified 10/25/21 12:10 Vomiting NSAIDS (Non-Steroidal AdvReac Other Verified 10/25/21 12:10 Anti-Inflamma oxycodone AdvReac Nausea and Verified 10/25/21 12:10 Vomiting Znksbqr-CXH-DhU Reductase AdvReac Muscle Verified 10/25/21 12:10 Inhibitor Aches [Bfzdruy-Yxh-Iyt Reductase Inhibitor] Home Meds: Home Meds Acetaminophen/Diphenhydramine [Tylenol Pm Ex-Strength Caplet] 1 tab PO DAILY PRN 08/07/18 [History] Carbidopa/Levodopa [Carbidopa-Levo 25-100 MG ODT] 25 - 100 mg PO TID 08/07/18 [History] Cholecalciferol (Vitamin D3) [Vitamin D3] 5,000 units PO DAILY 08/07/18 [History] Dabigatran [Pradaxa] 150 mg PO BID 08/07/18 [History] Levothyroxine 175 mcg PO ACBREAKFAST 08/07/18 [History] Losartan [Cozaar] 50 mg PO DAILY 08/07/18 [History] Metoprolol Succinate [Toprol XL 100mg] 150 mg PO .MORNING 08/07/18 [History] Sodium Bicarbonate 325 mg PO BID 08/07/18 [History] Vit C/E/Zn/Coppr/Lutein/Zeaxan [Preservision Areds 2 Softgel] 1 cap PO BID 08/07/18 [History] calcitrioL [Calcitriol] 0.75 mcg PO DAILY 08/07/18 [History] Acetaminophen [Tylenol] 650 mg PO Q4H PRN tablet 08/21/18 [Rx] Amitriptyline [Elavil] 5 mg PO BEDTIME 09/06/20 [History] Aspirin [Halfprin] 81 mg PO DAILY 09/06/20 [History] Calcitonin,Lyons,Synthetic [Calcitonin-Lyons] 1 spray MARINE ASDIRECTED 09/06/20 [History] Cyanocobalamin (Vitamin B-12) [Vitamin B-12] 1,000 mcg PO DAILY 09/06/20 [History] Famotidine 20 mg PO DAILY 09/06/20 [History] Fluorometholone [Fluorometholone 0.1% Ophth Susp] 1 drop EYEBOTH ASDIRECTED 09/06/20 [History] Furosemide [Lasix] 10 mg PO DAILY 09/06/20 [History] Vuck-Vxih-Pvttj [Cataract Opthalmic Solution] 1 drop EYEBOTH ASDIRECTED 09/06/20 [History] allopurinoL [Zyloprim] 100 mg PO DAILY 09/06/20 [History] amLODIPine [Norvasc] 5 mg PO DAILY 09/06/20 [History] metOLazone [Metolazone] 5 mg PO ASDIRECTED 09/06/20 [History] tiZANidine [Zanaflex] 4 mg PO TID PRN 09/06/20 [History] Metoprolol Succinate 100 mg PO BEDTIME 08/28/21 [History] traMADol [Ultram] 50 mg PO Q6H PRN 08/28/21 [History] Loperamide [Imodium] 4 mg PO TIDMEALS 08/29/21 [History] Past Medical History HEENT History: Reports: Cataract, Impaired Vision Other HEENT History: CORRECTIVE LENS. Partials upper and lower Cardiovascular History: Reports: Afib, CAD, High Cholesterol, Hypertension, Stents Other Cardiovascular History: x2 stents Respiratory History: Reports: None Gastrointestinal History: Reports: Chronic Diarrhea, GERD Genitourinary History: Reports: Chronic Renal Insuffiency, Other (See Below) Other Genitourinary History: CONGENITAL SINGLE KIDNEY, stage 3 kidney disease IMPORT EXPORT AGENT History: Reports: Fibroids, , Spontaneous , Other (See Below) Other IMPORT EXPORT AGENT History: FIBROCYSTIC BREAST DISEASE Musculoskeletal History: Reports: Fracture, Gout, Osteoarthritis Other Musculoskeletal History: B Knee surgery. Hip surgery Neurological History: Reports: Neuropathy, Peripheral, Parkinson's Psychiatric History: Reports: None Endocrine/Metabolic History: Reports: Hypothyroidism, Obesity/BMI 30+ Hematologic History: Reports: B12 Deficiency, Blood Transfusion(s) Immunologic History: Reports: None Oncologic (Cancer) History: Reports: None Dermatologic History: Reports: None - Infectious Disease History Infectious Disease History: Reports: Chicken Pox, Measles, Mumps, Shingles - Past Surgical History Head Surgeries/Procedures: Reports: None HEENT Surgical History: Reports: Cataract Surgery, Oral Surgery, Other (See Below) Other HEENT Surgeries/Procedures: UPPER PARTIAL Cardiovascular Surgical History: Reports: Coronary Artery Stent Respiratory Surgical History: Reports: None GI Surgical History: Reports: Appendectomy, Bariatric Procedure, Cholecystectomy, Colonoscopy Female Surgical History: Reports: Breast Biopsy, D&C, Hysterectomy, Salpingo- Oophorectomy Endocrine Surgical History: Reports: None Neurological Surgical History: Reports: None Musculoskeletal Surgical History: Reports: Hip Replacement, Knee Replacement, Other (See Below) Other Musculoskeletal Surgeries/Procedures:: FOOT SURGERY. MUSCLE BIOPSY. bilteral knee replacement. right hip replacement Oncologic Surgical History: Reports: None Dermatological Surgical History: Reports: None Social & Family History - Family History Family Medical History: No Pertinent Family History - Caffeine Use Caffeine Use: Reports: Coffee Other Caffeine Use: AVERAGE OF 2-3 CUPS DAILY - Living Situation & Occupation Living situation: Reports: Extended Care Facility Occupation: Retired ED ROS GENERAL - Review of Systems Review Of Systems: Comprehensive ROS is negative, except as noted in HPI. ED EXAM, GENERAL - Physical Exam Exam: See Below Exam Limited By: No Limitations General Appearance: Alert, Other (Frail, elderly, chronically ill appearing female) Throat/Mouth: No Airway Compromise Head: Atraumatic, Normocephalic Neck: Normal Inspection Respiratory/Chest: No Respiratory Distress, Lungs Clear, No Accessory Muscle Use, Decreased Breath Sounds Cardiovascular: Regular Rate, Rhythm GI/Abdominal: Normal Bowel Sounds, Soft, Non-Tender (Female) Exam: Other (Indwelling carter cath.) Rectal (Female) Exam: Other (Large unstagable scaral ulcer, deep into the amrik cleft with foul fecal odorous drainage, concerning for fistula. Photos taken.) Back Exam: No: Vertebral Tenderness Extremities: Pedal Edema Neurological: Alert, No Motor/Sensory Deficits (with profound generalized weakness), Confused Psychiatric: Depressed Mood, Flat Affect Skin Exam: Warm, Dry, No Rash, Pallor. No: Cyanosis, Ecchymosis, Jaundice, Petechiae Course - Vital Signs Last Recorded V/S: Last Vital Signs Temp 96.7 F L 10/25/21 12:05 Pulse 92 10/25/21 12:05 Resp 14 10/25/21 12:05 BP 82/48 L 10/25/21 12:05 Pulse Ox 92 L 10/25/21 12:05 - Orders/Labs/Meds Orders: Active Orders 24 hr Category Date Time Status Abdomen Pelvis wo Cont [CT] Stat Exams 10/25/21 13:08 Ordered Chest wo Cont [CT] Routine Exams 10/25/21 13:33 Ordered CULTURE BLOOD [BC] Stat Lab 10/25/21 11:30 Results CULTURE BLOOD [BC] Stat Lab 10/25/21 11:40 Results REFLEX LACTIC ACID YES OR NO [CHEM] Routine Lab 10/25/21 12:50 Received Sodium Chloride 0.9% [Saline Flush] Med 10/25/21 11:43 Active 10 ml FLUSH ASDIRECTED PRN Blood Culture x2 Reflex Set [OM.PC] Stat Oth 10/25/21 11:43 Ordered Peripheral IV Insertion Adult [OM.PC] Stat Oth 10/25/21 11:43 Ordered Medication Orders Sodium Chloride (Sodium Chloride 0.9% 10 Ml Syringe) 10 ml FLUSH ASDIRECTED PRN PRN Reason: Keep Vein Open Labs: Laboratory Tests 10/25/21 10/25/21 10/25/21 Range/Units 11:40 11:40 11:57 WBC 6.8 (5.0-10.0) 10^3/uL RBC 1.94 L (4.2-5.4) 10^6/uL Hgb 5.7 L* D (12.0-16.0) g/dL Hct 17.7 L* (37.0-47.0) % MCV 91.2 D (80-100) fL MCH 29.4 (27.0-34.0) pg MCHC 32.2 L (33.0-35.0) g/dL Plt Count 175 (150-450) 10^3/uL Neut % (Auto) 90.1 H (42.2-75.2) % Lymph % (Auto) 6.0 L (20.5-50.1) % [place] % (Auto) 3.5 (2-8) % Eos % (Auto) 0.4 L (1.0-3.0) % Baso % (Auto) 0.0 (0.0-1.0) % Sodium 138 (136-145) mmol/L Potassium 3.6 (3.5-5.1) mmol/L Chloride 101 (98-107) mmol/L Carbon Dioxide 26 (21-32) mmol/L Anion Gap 14.6 H (7-13) mEq/L BUN 59 H (7-18) mg/dL Creatinine 1.74 H (0.55-1.02) mg/dL Est Cr Clr Drug Dosing 26.01 mL/min Estimated GFR (MDRD) 28 BUN/Creatinine Ratio 33.9 (No establ ref range) Glucose 73 (70-99) mg/dL Lactic Acid (0.4-2.0) mmol/L Calcium 8.8 (8.5-10.1) mg/dL Total Bilirubin 0.7 (0.2-1.0) mg/dL AST 21 (15-37) U/L ALT < 6 L (14-59) U/L Alkaline Phosphatase 156 H (46-116) U/L C-Reactive Protein > 36.0 H (0.0-0.9) mg/dL Total Protein 4.6 L (6.4-8.2) g/dL Albumin 1.1 L (3.4-5.0) g/dL Globulin 3.5 Albumin/Globulin Ratio 0.31 Urine Color Dark yellow (YELLOW) Urine Appearance Slightly cloudy (CLEAR) Urine pH 5.5 (5.0-9.0) Ur Specific [place] 1.020 (1.005-1.030) Urine Protein Negative (NEGATIVE) Urine Glucose (UA) Negative (NEGATIVE) Urine Ketones Negative (NEGATIVE) Urine Occult Blood Negative (NEGATIVE) Urine Nitrite Negative (NEGATIVE) Urine Bilirubin Negative (NEGATIVE) Urine Urobilinogen 0.2 (0.2-1.0) mg/dL Ur Leukocyte Esterase Negative (NEGATIVE) 10/25/ Range/Units 12:17 WBC (5.0-10.0) 10^3/uL RBC (4.2-5.4) 10^6/uL Hgb (12.0-16.0) g/dL Hct (37.0-47.0) % MCV (80-100) fL MCH (27.0-34.0) pg MCHC (33.0-35.0) g/dL Plt Count (150-450) 10^3/uL Neut % (Auto) (42.2-75.2) % Lymph % (Auto) (20.5-50.1) % [place] % (Auto) (2-8) % Eos % (Auto) (1.0-3.0) % Baso % (Auto) (0.0-1.0) % Sodium (136-145) mmol/L Potassium (3.5-5.1) mmol/L Chloride (98-107) mmol/L Carbon Dioxide (21-32) mmol/L Anion Gap (7-13) mEq/L BUN (7-18) mg/dL Creatinine (0.55-1.02) mg/dL Est Cr Clr Drug Dosing mL/min Estimated GFR (MDRD) BUN/Creatinine Ratio (No establ ref range) Glucose (70-99) mg/dL Lactic Acid 2.1 H* (0.4-2.0) mmol/L Calcium (8.5-10.1) mg/dL Total Bilirubin (0.2-1.0) mg/dL AST (15-37) U/L ALT (14-59) U/L Alkaline Phosphatase (46-116) U/L C-Reactive Protein (0.0-0.9) mg/dL Total Protein (6.4-8.2) g/dL Albumin (3.4-5.0) g/dL Globulin Albumin/Globulin Ratio Urine Color (YELLOW) Urine Appearance (CLEAR) Urine pH (5.0-9.0) Ur Specific [place] (1.005-1.030) Urine Protein (NEGATIVE) Urine Glucose (UA) (NEGATIVE) Urine Ketones (NEGATIVE) Urine Occult Blood (NEGATIVE) Urine Nitrite (NEGATIVE) Urine Bilirubin (NEGATIVE) Urine Urobilinogen (0.2-1.0) mg/dL Ur Leukocyte Esterase (NEGATIVE) Meds: Medications Generic Name Dose Route Start Last Admin Trade Name Freq PRN Reason Stop Dose Admin Sodium Chloride 10 ml 10/25/21 11:43 Sodium Chloride 0.9% 10 Ml Syringe FLUSH ASDIRECTED PRN Keep Vein Open Discontinued Medications Generic Name Dose Route Start Last Admin Trade Name Freq PRN Reason Stop Dose Admin Piperacillin Sod/Tazobactam 100 mls @ 200 mls/hr 10/25/21 11:51 10/25/21 12:31 Sod 3.375 gm/ Sodium Chloride IV 10/25/21 12:20 200 mls/hr ONETIME ONE Administration - Radiology Interpretation Free Text/Narrative:: CT Chest/Abd/Pelvis: see Rad. report. - Re-Assessments/Exams Free Text/Narrative Re-Assessment/Exam: 10/25/[address] Wahl. Pt may have an anorectal fistula or other deep tract drainage to the buttock ulcer from an unknown intrapelvic/abdominal source. However, it is agreed that the pt is not a surgical candidate and her daughter has related to Dr. Wahl that they wish to have conservative care with the goal of comfort, and do not wish to have the pt in the hospital as family cannot visit her and they are aware and accept that she is in an end of life state. As she is going with comfort care in the NH, we will forgo blood transfusion as her serum albumin is very low and and transfusion may cause complications with CHF and edema. Dr. Wahl agrees to accept the pt back to the [place] with comfort care and end of life care. Departure - Departure Time of Disposition: 13:45 (discharge back to [place] to care of Dr. Wahl) Disposition: DC/[facility] to [facility] Condition: Poor Clinical Impression: CKD (chronic kidney disease) stage 4, GFR 15-29 ml/min Sacral pressure ulcer Qualifiers: Pressure injury stage: unstageable Qualified Code(s): L89.150 - Pressure ulcer of sacral region, unstageable GI bleed Qualifiers: GI bleed type/associated pathology: unspecified gastrointestinal hemorrhage type Qualified Code(s): K92.2 - Gastrointestinal hemorrhage, unspecified Anemia Qualifiers: Anemia type: unspecified type Qualified Code(s): D64.9 - Anemia, unspecified - Discharge Information *PRESCRIPTION DRUG MONITORING PROGRAM REVIEWED*: Not Applicable *COPY OF PRESCRIPTION DRUG MONITORING REPORT IN PATIENT REYNALDO: Not Applicable Instructions: Gastrointestinal Bleeding, Pressure Injury Forms: ED Department Discharge Additional Instructions: Discharge to correction to care of Dr. Wahl with plans for comfort care/end of life care. Sepsis Event Note (ED) - Focused Exam Vital Signs: Vital Signs Temp Pulse Resp BP Pulse Ox 10/25/21 12:05 96.7 F L 92 14 82/48 L 92 L - My Orders Last 24 Hours: My Active Orders 10/25/21 11:30 CULTURE BLOOD [BC] Stat 10/25/21 11:40 CULTURE BLOOD [BC] Stat 10/25/21 11:43 Sodium Chloride 0.9% [Saline Flush] 10 ml FLUSH ASDIRECTED PRN Blood Culture x2 Reflex Set [OM.PC] Stat Peripheral IV Insertion Adult [OM.PC] Stat 10/25/21 12:50 REFLEX LACTIC ACID YES OR NO [CHEM] Routine 10/25/21 13:08 Abdomen Pelvis wo Cont [CT] Stat 10/25/21 13:33 Chest wo Cont [CT] Routine - Assessment/Plan Last 24 Hours: My Active Orders 10/25/21 11:30 CULTURE BLOOD [BC] Stat 10/25/21 11:40 CULTURE BLOOD [BC] Stat 10/25/21 11:43 Sodium Chloride 0.9% [Saline Flush] 10 ml FLUSH ASDIRECTED PRN Blood Culture x2 Reflex Set [OM.PC] Stat Peripheral IV Insertion Adult [OM.PC] Stat 10/25/21 12:50 REFLEX LACTIC ACID YES OR NO [CHEM] Routine 10/25/21 13:08 Abdomen Pelvis wo Cont [CT] Stat 10/25/21 13:33 Chest wo Cont [CT] Routine
[2021-10-25] MEDS ORDERED: Sodium Chloride 0.9% 10 ML Syringe FLUSH PRN (11:43)
--- NOTE | 2021-10-25 11:48 | PCM.SN.2 ---
- Free Text/Narrative Note: 81-year-old female from [facility], admitted there on 09/01/2021. Sent to ER for declining status. Has large sacral ulceration, due to being constantly in recliner. Started last week on regimen of off-loading, daily wound care, and doxycycline 100 mg BID (10/15/21). Nursing notes increasingly foul odor from wound. Oral intake has been declining. No fever. BP has been running low, causing BP meds to be held/reduced/discontinued. SBP around 80. 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 Other PMH: hypothyroidism, persistent proteinuria, hypoalbuminemia (1.9), edema, iron deficiency, coronary artery disease, anemia, Parkinson's disease, folate deficient. S/P gastric bypass with chronic loose stools (malabsorption?). Recent labs: Oct 05-10/16. Albumin 1.9. BUN/creat 44 and 1.5 with GFR 33. Hgb/Hct 8.0 and 25.1. WBC 12K. Spoke with family this morning about declining status. Large family with 7 adult children. also admitted to [facility] with advanced dementia. Please evaluate. Will discuss with you and decide on plan of care when results are back. Thanks. ELAN
[2021-10-25] MEDS ORDERED: Piperacillin/Tazobactam 3.375 GM in Sodium Chloride 0.9% 100 ML IV ONE (11:51)
[2021-10-25 12:17] LABS: ANION GAP 14.6 mEq/L (7-13); CHLORIDE,CL 101 mmol/L (98-107); SODIUM,NA 138 mmol/L (136-145)
--- NOTE | 2021-10-25 14:18 | CT ---
EXAMINATION: Abdomen Pelvis wo Cont SEX: Female AGE: 81 years CLINICAL HISTORY: 81-year-old female with buttock ulceration. History of CHF with "small left pleural effusion and underlying LLL basilar atelectasis" (CXR 28 August 2021). Clinically suspected fistula. Scan technique: Volume acquisition of data unenhanced CT scan abdomen, pelvis and both hips obtained with the patient lying supine on the Siemens multislice scanner [place], [place]. All data archived in the PACS system for storage, reformatting and study (bone and soft tissue windows). INTERPRETATION: Abnormal. 1. External monitor leads. Orthopedic replacement) prosthesis) right hip. 2. *Abnormal collections of subcutaneous air extending from the perirectal space in the pelvis posteriorly (axial slice #72; sagittal #53 coronal #44) on the right, superficially up into the soft tissues of ipsilateral buttocks, posterior lateral to the sacrum on the right. 3. No foreign bodies or confluent fluid collections (abscess). 4. No current evidence of underlying skeletal involvement. 5. Symmetrically distended normal appearing unenhanced urinary bladder. 6. Gallbladder, unenhanced liver, spleen, atrophic pancreas, adrenal glands and right kidney unremarkable (apparent left nephrectomy). Atheromatous calcifications normal caliber aortoiliac vessels. No aneurysm or dissection. 7. No abdominal or pelvic mass lesion, mesenteric or retroperitoneal lymphadenopathy, inflammatory "dirty" peritoneal fat, signs of mechanical bowel obstruction, ascites or free intraperitoneal air. 8. Large dependent bibasilar subpulmonic pleural effusions. CONCLUSION: Perirectal abscess with subcutaneous fistulous extension superficially up behind sacrum, on right.
--- NOTE | 2021-10-26 07:39 | CT ---
EXAMINATION: Chest wo Cont SEX: Female AGE: 81 years CLINICAL HISTORY: 81-year-old female emergency department with perirectal infection (ULCER) and fistula. History BILATERAL EFFUSIONS. ("Small left pleural effusion and underlying LLL basilar atelectasis" 28 August 2021). F/U Left nephrectomy. Scan technique: Volume acquisition of data from the chest (bony thorax, lungs and mediastinum) obtained without oral or IV contrast while patient was lying supine on the Siemens multislice scanner [place], [place]. All data archived in the PACS system for storage, reformatting axial/sagittal/coronal veins and study. INTERPRETATION: 1. Large heart. Dense coronary artery and aortic valvular calcifications. No pericardial effusions. 2. No pulmonary vascular congestion, cephalization of flow or alveolar edema. 3. Large dependent subpulmonic pleural fluid accumulations (left greater than right) bilaterally. 4. Patchy underlying atelectasis and/or infiltrate left lower lobe (LLL). 5. No suspicious lung nodule or mass lesion. No hilar or mediastinal lymphadenopathy. 6. Calcifications normal caliber unenhanced thoracic aorta. No aneurysmal dilatation. 7. Severe lower cervical disc disease. Osteoporosis; mild kyphosis; spondylosis dorsal spine. No pathologic skeletal lesion, fracture or dislocation (spondylolisthesis) thoracic spine. CONCLUSION: Large bibasilar pleural effusions (underlying infiltrate or atelectasis LLL). No sign of lung malignancy. Coronary artery calcifications and enlarged heart. No vascular congestion.
== END 2021-10-25 14:12 ==
LOC: DL.ED 10:41
DX: L89.150 Pressure ulcer of sacral region, unstageable (principal); K92.2 Gastrointestinal hemorrhage, unspecified; I12.9 Hypertensive chronic kidney disease with stage 1 through stage 4 chronic kidney disease, or unspecified chronic kidney disease; N18.4 Chronic kidney disease, stage 4 (severe); D63.1 Anemia in chronic kidney disease; I48.91 Unspecified atrial fibrillation; I25.10 Atherosclerotic heart disease of native coronary artery without angina pectoris; K21.9 Gastro-esophageal reflux disease without esophagitis; M10.9 Gout, unspecified; E03.9 Hypothyroidism, unspecified; E66.9 Obesity, unspecified; Z68.25 Body mass index [BMI] 25.0-25.9, adult; Z88.8 Allergy status to other drugs, medicaments and biological substances; Z91.011 Allergy to milk products; Z88.5 Allergy status to narcotic agent; Z88.6 Allergy status to analgesic agent; Z79.82 Long term (current) use of aspirin; Z79.899 Other long term (current) drug therapy
CPT/HCPCS: 36415; 71250; 74176; 80053; 81003; 83605; 85025; 86140; 87040; 96365; 99285; J2543; 87077; 87186